=== PATIENT | female | born 1950 | race Caucasian/White ===

== ENCOUNTER 2016-12-18 16:52 | Emergency (ER) | payer MEDICARE, MEDICAID ==
[~2016-12-18] VITALS: Ht 157.5 cm; Wt 63.5 kg
[2016-12-18] MEDS ORDERED: ACETAMINOPHEN &1 TA1 PO (17:02)
--- NOTE | 2016-12-18 17:26 | Emergency Room Report ---
History of Present Illness Time Seen by [id number] Presenting Problem in Triage Pt arrived:Ambulance Stretcher Presenting Problem:PATIENT STATES THAT SHE HAS BEEN HAVING ISSUES WITH HER SON AND HASN'T BEEN TAKING HER SEIZURE MEDICATIONS. BROUGHT BY EMS RELATED TO HAVING MULTIPLE SEIZURES BACK TO BACK Onset of symptoms date/time:/ or onset unknown for:MEDICAL HX UNKNOWN Treatment Prior to Arrival: MONITORING AND IV INSERTION C-COLLAR AND BACKBOARD PUBLIC HEALTH EDUCATOR Provided by:EMT Sepsis Risk Assessment: Temp: B/P: MAP: Pulse: 98 Resp: 20 Recent fever? N Clinical Suspician of Infection? N Mental Status: 1 - Regular (Normal Baseline) Sepsis Risk:Possible Sepsis Risk Have you (or family members/close friends) recently traveled outside the [place]? N If Yes, where/when: Have you had exposure to infectious disease within the past month? N TB? Other? Specify: 66 years old white female from [place] who was diagnosed with epilepsy than 1 year ago after extensive workup. She is supposed to be on Topamax and she stopped it 4 months ago. Today she was visiting her daughter when she suffered for tonic-clonic seizures in the last hour, the ambulance was called and brought to the ED. the family reports that the patient hit her head during the seizure episode. She is alert oriented provided the history above. She admitted having seizure and chronic low back pain. I removed her dentures placed in a cup and gave it to her. Source patient, RN notes reviewed, family ALLERGIES Coded Allergies: Penicillins (12/18/16) codeine (12/18/16) morphine (12/18/16) Home Medications Reported Medications HYDROCODONE/ACETAMINOPHEN (Hydrocodon-Acetaminophn 10-325) 1 TAB PO Q6HP PRN PAIN #120 History Medical History General CAD? No Angina: No ND: No Hypertension? No Hyperlipidemia? No CHF? No DVT? No PE? No COPD? No Asthma? No Anemia? No GERD? No Gastric ulcers? No GI Bleed? No Hernia? No Thyroid Problems? No Hypothyroidism? No CVA? No Seizures? Yes Diabetes? No Renal Insuffiency? No End Stage Renal Disease? No UTI? No Stones? No BPH? No GB Disease: No Nephritic Syndrome? No Asplenia? No Hepatitis? No Sickle Cell Disease? No Arthritis? No Migraines? No Cataracts? No Glaucoma? No MRSA? No HIV? No TB? No Anxiety? Yes Depression? Yes Cancer? No More? 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 Respiratory no symptoms reported Cardiovascular no symptoms reported Gastrointestinal no symptoms reported Genitourinary no symptoms reported. Musculoskeletal no symptoms reported Skin no symptoms reported Psychiatric/Neurological see HPI, seizure Physical Exam Vital Signs Vital Signs Date Time Temp Pulse Resp B/P Pulse O2 O2 Flow FiO2 Ox Delivery Rate 12/18 1919 92 18 131/71 93 12/18 1749 95 20 151/84 96 12/18 1654 98 20 94 - WBC >12,000 or <4,000 or 10% bands? 2 or more SIRS Criteria Met? B/P: MAP: Creatinine >2.0? UA output<0.5ml/kg/hr for 2 hrs? Platelet count >100,000? Lactate >2.0mmol/1? INR >1.2 or PTT > than 60 sec? Evidence of Organ Dysfunction? Provider documented clinical suspician of infection? N Sepsis Criteria Count: 2 Sepsis Risk: Possible Sepsis Risk General Appearance normal appearance, WD/WN Eye Exam - bilateral eye normal exam, bilateral eye PERRL, bilateral eye EOMI Ear, Nose, Throat hearing grossly normal, normal ENT inspection Neck normal inspection, non-tender, supple, full range of motion Respiratory Status Yes: trachea midline, chest symmetrical, non tender chest. No: respiratory distress. Lung Sounds bilateral: normal breath sounds, lungs clear. Cardiovascular normal exam, regular rate/rhythm, no peripheral edema, no gallop, no JVD, no murmur, no rub, normal peripheral pulses Peripheral Pulses Pulses normal Yes Gastrointestinal normal bowel sounds, normal exam, non tender, soft, no organomegaly Back normal inspection, no CVA tenderness, no vertebral tenderness Extremities non-tender, normal range of motion, normal inspection Neurologic alert, cut out press operator II-XII nml as tested, normal exam, oriented x 3 Reflexes Reflexes normal Yes Mental status normal mood/affect Skin intact, normal color, warm/dry Medical Decision Making LABS/Meds/Orders Pt receiving controlled substance in ED? No Results/Orders Laboratory Tests 12/18/16 1706: Sodium 141, Potassium 4.1, Chloride 104, Carbon Dioxide 28, BUN 17, Creatinine 1.1 H, Estimated Creat Clear 50, Estimated GFR (MDRD) 50 L, Glucose 95, Calcium 9.1, Total Bilirubin 0.1 L, AST 22, ALT 18, Alkaline Phosphatase 111, Total Protein 7.2, Albumin 3.2 L, Globulin 4.0 H, Albumin/Globulin Ratio 0.8 L, WBC 10.7, RBC 4.35, Hgb 13.1, Hct 40.1, MCV 92.1, RDW 13.1, Plt Count 317, MPV 8.3, Gran % 63.1, Gran # 6.8, Lymphocytes % 29.4, Monocytes % 3.7, Eosinophils % 2.9, Basophils % 0.8, Lymphocytes # 3.2, Monocytes # 0.4, Eosinophils # 0.3, Basophils # 0.1, PUBS MCHC 32.7, MCH 30.1 Current Medication Orders Sig/Ashley Start time Last Medication Dose Route Stop Time Status Admin Acetaminophen 1,000 MG ONCE ONE 12/18 1914 DC 12/18 PO 12/19 1915 191 Acetaminophen 0 .STK-MED ONE 12/18 1909 DC PO Topiramate 50 MG ONCE ONE 12/18 1800 DC 12/18 PO 12/18 1800 180 Topiramate 0 .STK-MED ONE 12/19 1755 DC PO Sodium Chloride 100 ML .STK-MED ONE 12/18 1730 DC IV Phenytoin Sodium 1,000 MG ONCE ONE 12/18 1729 DC 12/18 Sodium Chloride 100 ML IV 12/18 1752 174 Phenytoin Sodium 0 .STK-MED ONE 12/19 1719 DC IV Orders Procedure Date/time Status DIET-NOTHING BY MOUTH 12/[address] HEAD REQ 12/[address] SCAN REQ 12/18 1728 Complete CHEST-PORTABLE 12/18 1728 Active URINALYSIS/COMPLETE 12/18 1728 Active DRUG ABUSE SCREEN (10) 12/18 1728 Active CBC WITH AUTO DIFF 12/18 1728 Complete CHEM 12 PROFILE 12/18 1728 Complete XRAY/CT/US XRAY/CT/US XRAY chest XR interpretation by reviewed by me Xray Results normal/NAD, no fracture seen, no infiltrates Departure Departure Time of Disposition 1924 Disposition DC Home or Self Care(routine) Clinical Impression Primary Impression: Seizure disorder Secondary Impressions: Chronic back pain, DJD (degenerative joint disease) of cervical spine, Head contusion, Non compliance w medication regimen Condition STABLE Additional Instructions The patient had UNEVENTHFUL ED STAY WITH NO MORE SEIZURES. SHE REMAINED AXOX3. AT [place] SHE COMPLAINED OF HEDACHE AND WAS GIVEN TYLENOL WITH RELIEF. The patient could not tolerate IV Dilantin. I gave her Topamax 50 mg 1 time dose in the ED and another to GO HOME. She does have Topamax 100 mg at HOME. She understands that she is not to quit taking her medicine. The patient and her verbalize understanding of the LEFT plan. The has seizures when he sees the same neurologist. Questions were answered and they were discharged in stable condition. DR. SPICER Discharge Counseling Counseled pt/family regarding diagnosis, test results, medications/RX, home care, follow up needs Prescriptions Current Visit Scripts Topiramate (Topamax) 50 MG PO Q12 #14 TAB ED Critical Care Critical Care No If Critical Care minutes are documented, the time involved in the performance of seperately reportable procedures was not counted toward critical care time documented. I directly delivered medical care to this critically ill and/or injured patient. Timely evaluation and treatment was necessary to address the significant organ system(s) dysfunction present in this patient. at 1931
[2016-12-18 18:28] LABS: HEMOGLOBIN 13.1 g/dL (12.2-16.2); LYMPH # 3.2 K/mm3 (0.7-4.5); LYMPH % 29.4 % (10-50.0)
--- OUTSIDE RECORDS SUMMARY | 2016-12-18 18:37 | External Medical Summary Rpt ---
Author Author [facility] Organization [facility] Address Unknown Phone Unavailable Care Team Providers Care Tractor Sweeper Operator Name Role Phone JAYLEEN, (REF) PCP [phone] Encounter [facility] Date(s): 12/04/15 - 12/04/15 [facility] [address] [place] [id number]- Discharge Disposition: OP Self Care or Home Attending Physician: BEENA TAMAYO DO-CAR Admitting Physician: BEENA TAMAYO DO-CAR Referring Physician: BEENA TAMAYO DO-CAR Reason for Visit CHEST PAIN, UNSPECIFIED Vital Signs Most recent 1 2 3 to oldest [Reference Range]: Temperature Temporal artery Source scanning (12/04/15 8:15 AM) Temperature Fahrenheit Mode (12/04/15 8:15 AM) Temperature, 97.8 Deg F Fahrenheit (12/04/15 8:15 AM) [96.8-99.7 Deg F] Clinical 36.6 Deg C Temperature, (12/04/15 8:15 AM) C Peripheral 70 bpm Pulse Rate (12/04/15 8:15 AM) [60-100 bpm] Heart Rate 74 bpm 70 bpm 76 bpm Monitored (12/04/15 1:30 PM) (12/04/15 1:15 PM) (12/04/15 1:00 PM) [60-100 bpm] Respiratory 34 Breaths/Min 16 Breaths/Min 34 Breaths/Min Rate [14-20 *HI* (12/04/15 1:15 PM) *HI* Breaths/Min] (12/04/15 1:30 PM) (12/04/15 1:00 PM) Blood 116/64 mmHg 108/63 mmHg 113/56 mmHg Pressure (12/04/15 1:30 PM) (12/04/15 1:15 PM) (12/04/15 1:00 PM) [90-140/60-9 0 mmHg] Mean 83 82 77 Arterial (12/04/15 1:30 PM) (12/04/15 1:15 PM) (12/04/15 1:00 PM) Pressure (MAP)-BMDI Oxygen 98 % 95 % 92 % Saturation (12/04/15 1:30 PM) (12/04/15 1:15 PM) *LOW* [94-100 %] (12/04/15 1:00 PM) Problem List Condition Effective Status Health Informant Dates Status Angina(Confi Active patient rmed) Arthritis(Co Active patient nfirmed) Back Active patient pain(Confirm ed) Cataract(Con Active patient firmed) COPD Active patient (chronic obstructive pulmonary disease)(Con firmed) H/O: Active patient TIA(Confirme d) Hiatal Active patient hernia(Confi rmed) Pneumonia(Co Active patient nfirmed) Seizure(Conf Active patient irmed) Skin Active patient cancer(Confi rmed) Syncope(Conf Active patient irmed) Allergies, Adverse Reactions, Alerts Substance Reaction Severity Status codeine n/v Active morphine n/v cramping Active penicillin n/v Active Zanaflex n/v, cramping Active Medications acetaminophen-HYDROcodone (Lortab 10/325)1 Tab, Oral, Every 4 Hours, As Needed, as needed for pain, Refills: 0 albuterol (albuterol 0.63 mg/3 mL (0.021%) inhalation solution)3 mL, Nebulized Inhalation , Three Times A Day, Refills: 0 ALPRAZolam (Xanax) 1 mg, Oral, Three Times A Day, Refills: 0 diclofenac 75 mg, Oral, Two Times A Day, Refills: 0 gabapentin 400 mg, Oral, Four Times A Day, Refills: 0 topiramate (Topamax) 50 mg, Oral, Two Times A Day, Refills: 0 Results No data available for this section Immunizations No data available for this section Procedures Procedure Date Related Body Site Diagnosis appy bone marrow bx cataract sx choley laser eye ex skin cancer removal from lip tubal Social History Social History Response Type Smoking Status Current every day smoker; Smoking Frequency Within Last 30 Days Five or more cigarettes per day; Tobacco Use Within Last Twelve Months Cigarettes; Years of Tobacco Use 35; Packs/Tins Daily 1 Assessment and Plan No data available for this section Hospital Discharge Instructions Patient EducationAngiogram, Care After Conscious Sedation, Adult, Care After Groin Site Care (Custom) (CUSTOM)
--- OUTSIDE RECORDS SUMMARY | 2016-12-18 18:37 | External Medical Summary Rpt ---
Author Author [facility] Organization [facility] Address Unknown Phone Unavailable Care Team Providers Care Capacitor Inspector Name Role Phone PHY, UNKNOWN PCP Unavailable Encounter [facility] [id number] Date(s): 12/07/15 - 12/08/15 [facility] [address] [place] [address]- [phone] Discharge Disposition: OP Self Care or Home Attending Physician: MICKEY HUSSEIN II, MD-ANS Admitting Physician: MICKEY HUSSEIN II, MD-ANS Referring Physician: MICKEY HUSSEIN II, MD-ANS Reason for Visit PM Vital Signs No data available for this section Problem List Condition Effective Status Health Informant [...] n/v Active Zanaflex n/v, cramping Active Medications No data available for this section Results No data available for this section Immunizations No data available for this section Procedures No data available for this section Social History Social History Response Type Smoking Status Current every day smoker; Smoking Frequency Within Last 30 Days Five or more cigarettes per day; Tobacco Use Within Last Twelve Months Cigarettes; Years of Tobacco Use 35; Packs/Tins Daily 1 Assessment and Plan No data available for this section Hospital Discharge Instructions No data available for this section
--- OUTSIDE RECORDS SUMMARY | 2016-12-18 18:37 | External Medical Summary Rpt ---
Author Author [facility] Organization [facility] Address Unknown Phone Unavailable Care Team Providers Care Spring Winder Name Role Phone JAYLEEN, (REF) PCP [phone] Encounter [facility] Date(s): 12/04/15 - 12/04/15 [facility] [address] [place] [address]- Discharge Disposition: OP Self Care or Home [...]
--- OUTSIDE RECORDS SUMMARY | 2016-12-18 18:37 | External Medical Summary Rpt ---
Author Author [facility] Organization [facility] Address Unknown Phone Unavailable Care Team Providers Care Import Export Clerk Name Role Phone PHY, UNKNOWN PCP Unavailable Encounter [facility] [id number] Date(s): 12/07/15 - 12/08/15 [facility] [address] [place] [address]- [phone] Discharge Disposition: OP Self Care or Home [...]
--- OUTSIDE RECORDS SUMMARY | 2016-12-18 18:42 | External Medical Summary Rpt | CCD ---
Author Author , ROSA Organization ROSA Address Unknown Phone [email or web address] Care Team Providers Care [employer] Consultant Name Role Phone JORGE, JORGE Unavailable Unavailable JORGE WHI, OJRGE Unavailable Unavailable WHI MICHAEL ZEKE, MICHAEL Unavailable Unavailable ZEKE [employer] Unavailable Unavailable CORPORATION, [employer] Unavailable Unavailable CORPORATION, [employer] BULMARO JR MAR, Unavailable Unavailable BULMARO JR MAR ARNOLD OMAR, ARNOLD Unavailable Unavailable OMAR ARNOLD OMAR, ARNOLD Unavailable Unavailable OMAR ARNOLD, BEENA W, Unavailable Unavailable ARNOLD, BEENA W [facility] Unavailable Unavailable SERVICES, [facility] Unavailable Unavailable SERVICES, [facility] BEATRIZ FRA, BEATRIZ Unavailable Unavailable FRA [facility] Unavailable Unavailable ASSOCIAT, [facility] ANASTACIA JASKARAN, ANASTACIA Unavailable Unavailable JASKARAN ANASTACIA JACKIE, ANASTACIA Unavailable Unavailable JACKIE BROWN MAR, BROWN MAR Unavailable Unavailable HEATH JAM, HEATH JAM Unavailable Unavailable BUTROS RAE, BUTROS Unavailable Unavailable RAE [facility] Un[facility] Unavailable [facility] M, [facility] CHIPPS NOAH & Unavailable Unavailable DUBILIER, [facility]IP[facility] NOAH & DUBILIER [facility] Unavailable Unavailable HOSPITAL, [facility] Unavailable Unavailable PRACTI, [facility] Unavailable Unavailable MEDICAL CENT, [facility] MEDICAL [facility] Unavailable Unavailable PHYSICIAN PRA, [facility] PHYSICIAN PRA [facility], Unavailable Unavailable [facility] THEODORE PATRICIA, THEODORE PATRICIA Unavailable Unavailable [facility] Unavailable Unavailable [facility]IA [facility], [facility] Unavailable Unavailable AND REHA, [facility] Unavailable Unavailable EQUIPMENT, [facility] GRIS JR CHAS, GRIS Unavailable Unavailable JR CHAS BRET REGINA, BRET REGINA Unavailable Unavailable DOWNS PAT, DOWNS PAT Unavailable Unavailable [employer], [employer] Unavailable Unavailable DIAZ, DIAZ Unavailable Unavailable ESCOTT EDW, ESCOTT Unavailable Unavailable EDW KANCHAN RAZA, KANCHAN RAZA Unavailable Unavailable KANCHAN RAZA, KANCHAN RAZA Unavailable Unavailable FERDA, FERDA Unavailable [facility]available [facility] Unavailable Unavailable GROUP P, [facility] GEILE CROWELL, GEILE CROWELL Unavailable Unavailable RACHELLE GRE, RACHELLE GRE Unavailable Unavailable GREGONIS MACK, Unavailable Unavailable GREGONIS MACK PULIDO CRISTIAN, PULIDO Unavailable Unavailable CRISTIAN DORON SCO, Unavailable Unavailable DORON SCO SYED TWA, SYED Unavailable Unavailable TWA GREG ZECHARIAH, GREG ZECHARIAH Unavailable Unavailable TERRY DICK, TERRY Unavailable Unavailable DICK HULZEBOS RYA, Unavailable Unavailable HULZEBOS RYA KEENAN II JOSHUA, KEENAN Unavailable Unavailable II JOSHUA CLEMENS NINOSKA, CLEMENS NINOSKA Unavailable Unavailable EFFIE III SOCRATES, Unavailable Unavailable EFFIE III SOCRATES [facility] Unavailable Unavailable ASSOCIAT, [facility] KOUNS AGUSTÍN, KOUNS AGUSTÍN Unavailable Unavailable KOUNS AGUSTÍN, KOUNS AGUSTÍN Unavailable Unavailable KUVLIEV YURY, KUVLIEV Unavailable Unavailable [facility] Unavailable Unavailable [facility], [facility] Unavailable Unavailable [facility], [facility], LINCARE Unavailable Unavailable INC [facility], [facility] Unavailable Unavailable INC [facility] MAZLOOMD, Unavailable Unavailable [facility] MAZLOOMD [facility] Unavailable Unavailable SERVICES, [facility] MAZLOOMDOOST RAZA, Unavailable Unavailable MAZLOOMDOOST RAZA MAZLOOMDOOST MAN, Unavailable Unavailable MAZLOOMDOOST MAN MCMENAMIN IVAN, Unavailable Unavailable MCMENAMIN IVAN MCMENAMIN IVAN, Unavailable Unavailable MCMENAMIN IVAN MCQUAIDE, MCQUAIDE Unavailable Unavailable MCQUAIDE CLARA, Unavailable Unavailable [facility] Un[facility]available [facility] Unavailable [facility], [facility] MARIE RYBrooke, MARIE Unavailable Unavailable RYA MOGILEVSKI, Unavailable Unavailable MOGILEVSKI MOGILEVSKI, Unavailable Unavailable MOGILEVSKI MOGILEVSKI JUSTIN, Unavailable Unavailable MOGMERI JUSTIN EMETERIO JUSTIN, Unavailable Unavailable EMETERIO THEODORE MD Unavailable Unavailable CONSULTING SRV, PATRICIA THEODORE MD CONSULTING SRV [facility] Unavailable Unavailable LAB, [facility] Unavailable Unavailable LAB, [facility] LAB PICA DAVE, PICA DAVE Unavailable Unavailable [facility]available Unavailable SERVICE, [facility] Unavailable Unavailable SERVICE, [facility] Unavailable Unavailable PLL[facility], [facility] KAYLEN CADENCE, Unavailable Unavailable KAYLEN CADENCE RASLAU FLA, RASLAU Unavailable Unavailable FLA [facility] Unavailable Unavailable SERVICES, [facility] RICE, RICE Unavailable Unavailable RICE, RICE Unavailable Unavailable RICE JAM, RICE JAM Unavailable Unavailable RICE SHA, RICE SHA Unavailable Unavailable RISHMAWI HAZ, Unavailable Unavailable RISHMAWI HAZ RADHA MAR, RADHA MAR Unavailable Unavailable [facility] Unavailable Unavailable EQUIPME, [facility] Unavailable Unavailable EMERGENCY PHYS, [facility] Unavailable Unavailable EMERGENCY SERVI, [facility] JR JUAN EDW, Unavailable Unavailable JR JUAN EDW [facility] Unavailable Unavailable [facility], Unavailable Unavailable [facility] WAESPE, WAESPE Unavailable Unavailable [facility] Unavailable Unavailable #702, [facility] Unavailable Unavailable #702, [facility] IV ALL, Unavailable Unavailable JERRY IV ALL [facility], Unavailable Unavailable [facility], Unavailable Unavailable [facility] MUNSON KIN, MUNSON KIN Unavailable Unavailable [facility] Un[facility] Unavailable [place] [place] LemonISE Unavailable Unavailable SYSTEMS IN, [facility] MARIO MAT, MARIO MAT Unavailable Unavailable Purpose Continuity of Care Document - 08-13-2009 through 2016 Problems Code Diagnosis DOS Provider Status M5136 [facility] 07-08-2016 [facility] 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 M545 LOW BACK 07-08-2016 [facility] PAIN ORTHOPEDIC ASSOCIAT M4806 SPINAL 06-07-2016 [facility] STENOSIS ORTHOPEDIC LUMBAR ASSOCIAT REGION M5126 OT 06-07-2016 [facility] INTERVERTEB ORTHOPEDIC RAL DISC ASSOCIAT DISPLACEMEN T LUMBAR RGN 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 SCIENCES OF Enumeral Biomedical ANALGESIC G894 CHRONIC 05-14-2016 [facility] PAIN REGIONAL SYNDROME PHYSICIAN PRA J111 FLU D/T 05-14-2016 [facility] UNIDENTIFIE N [facility]ERGENCY D FLU VIRUS SERVI W/OTH RESP MANIF J209 ACUTE 05-14-2016 [facility] BRONCHITIS N EMERGENCY UNSPECIFIED SERVI J440 COPD WITH 05-14-2016 [facility] ACUTE LOWER N EMERGENCY SERVI RESPIRATORY INFECTION J441 CHRONIC 05-14-2016 [facility] OBSTRUCTIVE REGIONAL PULMONARY PHYSICIAN DZ PRA W/EXACERBAT ION J9691 RESPIRATORY 05-14-2016 [facility] FAILURE REGIONAL UNSPECIFIED PHYSICIAN WITH PRA HYPOXIA E781 PURE 04-27-2016 [facility] HYPERGLYCER REGIONAL [facility] J438 OTHER 04-14-2016 [facility] N6001 SOLITARY 04-14-2016 [facility] CYST OF RADIOLOGY RIGHT GROUP P BREAST N6489 OTHER 04-14-2016 [facility] SPECIFIED RADIOLOGY DISORDERS GROUP P OF BREAST R921 MAMMO 04-14-2016 [facility] CALCIFICATI RADIOLOGY ON FOUND ON GROUP P DX IMAGING BREAST R928 OTH ABNORM 04-14-2016 [facility] & RADIOLOGY INCONCLUSIV GROUP P E FIND ON DX IMAG BREAST [id number] ADVERS EFF 04-04-2016 PATRICIA THEODORE UNS RX MEDS BIO CONSULTING SUBSTANCES SRV INIT ENC R079 CHEST PAIN 04-01-2016 [place] UNSPECIFIED FIRE EMS N858 OTHER 03-25-2016 [facility] SPECIFIED NOAH & NONINFLAMMA DUBILIER TORY DISORDERS UTERUS R938 ABNORMAL 03-25-2016 [facility] FIND ON DX REGIONAL IMAGING OT MEDICAL SPEC BODY CENTE STRCT A5900 UROGENITAL 03-24-2016 [facility] TRICHOMONIA HEALTH OF SIS [place] UNSPECIFIED R102 PELVIC AND 03-24-2016 [facility] PERINEAL HEALTH OF PAIN [place] Z1231 ENCOUNTER 03-24-2016 [facility] SCREENING RADIOLOGY MAMMO MALIG GROUP P NEOPLASM BREAST Z139 ENCOUNTER 03-24-2016 LABORATORY FOR KARTHIK OF SCREENING RM H UNSPECIFIED Z7252 HIGH RISK 03-24-2016 LABORATORY HOMOSEXUAL KARTHIK OF BEHAVIOR RM H Z780 ASYMPTOMATI 03-24-2016 [facility] C RADIOLOGY MENOPAUSAL GROUP P STATE 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 R569 UNSPECIFIED 03-14-2016 MOGILEVSKI CONVULSIONS R76570 ENCOUNTER 02-25-2016 [facility] SUBWAY TRAIN OPERATOR EXAM HEALTH OF GENERAL RTN [place] W/O ABNORMAL FIND Z124 ENCOUNTER 02-25-2016 LABORATORY OTHER KARTHIK OF SCREENING RM H MALIG NEOPLASM CERVIX A599 TRICHOMONIA 02-09-2016 [facility] SIS N EMERGENCY UNSPECIFIED PHYS G8929 OTHER 02-09-2016 [facility] CHRONIC REGIONAL PAIN MEDICAL CENTE J449 CHRONIC 02-09-2016 [facility] OBSTRUCTIVE REGIONAL PULMONARY MEDICAL DISEASE UNS CENTE M1990 UNSPECIFIED 02-09-2016 [facility] OSTEOARTHRI MEDICAL TIS CENTE UNSPECIFIED SITE A5901 TRICHOMONAL 02-04-2016 [facility] T[facility] J52501 OTH GEN 02-04-2016 [place] EPILEPSY [facility] NOT HOSPITAL INTRACTABLE W/O STATUS EPI N3001 ACUTE 02-04-2016 [place] CYSTITIS [facility] WITH HOSPITAL HEMATURIA Z720 TOBACCO USE 02-04-2016 [facility] G5732 LESION 01-25-2016 [place] [facility]AL [facility] POPLITEAL ASSOCIAT NERVE LEFT LOWER LIMB Y76187 PAIN IN 01-25-2016 [place] LEFT LEG ORTHOPEDIC ASSOCIAT R202 PARESTHESIA 01-25-2016 [facility] SKIN ORTHOP[facility]IC ASSOCIAT R55 SYNCOPE AND 12-28-2015 [facility] COLLAPSE JUSTIN M5386 OTHER 12-08-2015 [facility] SPECIFIED H SLEEP AND DORSOPATHIE REHA S LUMBAR REGION Z06903 LOC-REL SX 12-04-2015 [facility]PILEPSY [facility] W/CPS NOT PHYSICIAN INTRACT W/O PRA SE I200 UNSTABLE 12-04-2015 [facility] ANGINA REGIONAL PHYSICIAN PRA I498 OTHER 12-04-2015 [place] SPECIFIED [facility]ANCE CARDIAC SERVICE ARRHYTHMIAS R51 HEADACHE 12-04-2015 [facility] PHYSICIAN PRA R531 WEAKNESS 12-04-2015 [place] [facility] I6523 OCCLUSION & 12-02-2015 [facility] RADI[facility]Y BILATERAL GROUP P CAROTID ARTERIES K219 GASTRO-ESOP 12-01-2015 [facility] REFLUX REGIONAL DISEASE MEDICAL WITHOUT CENTE ESOPHAGITIS R05 COUGH 12-01-2015 [facility] R062 WHEEZING 12-01-2015 [facility] R071 CHEST PAIN 12-01-2015 [place] [facility] EMS BREATHING R42 DIZZINESS 12-01-2015 [facility] GIDDINESS MEDICAL CENTE R61 GENERALIZED 12-01-2015 [facility] HYPERHIDROS MEDICAL IS CENTE R79564 OTHER 10-15-2015 KANCHAN PERSON SECONDARY CATARACT LEFT EYE H0231 BLEPHAROCHA 10-12-2015 KANCHANVIRAJ PERSON LASIS RIGHT UPPER EYELID H0234 BLEPHAROCHA 10-12-2015 KANCHANVRIAJ PERSON LASIS LEFT UPPER EYELID 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 T54962 OTHER 10-12-2015 KANCHAN PERSON VITREOUS OPACITIES RIGHT EYE H527 UNSPECIFIED 10-12-2015 KANCHAN PERSON DISORDER OF REFRACTION Z961 PRESENCE OF 10-12-2015 KANCHANVIRAJ PERSON INTRAOCULAR LENS X92590 PAIN IN 09-22-2015 [facility] LEFT HIP ORTHOPEDIC ASSOCIAT M5417 RADICULOPAT 09-22-2015 [facility] HY ORTHOPEDIC LUMBOSACRAL ASSOCIAT REGION M5416 RADICULOPAT 06-22-2015 [facility] HY LUMBAR REGIONAL REGION MEDICAL CENTE G153UTE CONTUSION 05-25-2015 [facility] LOWER BACK REGIONAL & PELVIS MEDICAL INITIAL CENTE ENCOUNTER E785 HYPERLIPIDE 03-06-2015 [facility] MJ REGIONAL UNSPECIFIED PHYSICIAN PRA I10 ESSENTIAL 03-06-2015 [facility] PRIMARY REGIONAL HYPERTENSIO PHYSICIAN N PRA J22 UNSPECIFIED 03-06-2015 [facility] ACUTE REGIONAL LOWER PHYSICIAN RESPIRATORY PRA INFECTION 79384 DIARRHEA 08-25-2014 [facility] MEDICAL CENTE 98002 ESOPHAGEAL 08-20-2014 [facility] 5533 DIAPHRAGMAT 08-20-2014 THE [facility] YASIR W/O CLINIC MENTION OBSTRUCTION /GANGREN 7871 HEARTBURN 08-14-2014 [facility] 84928 FULL 07-17-2014 [facility] INCONTINENC REGIONAL E OF FECES MEDICAL CENTE 7932 NONSPC ABN 07-17-2014 [facility] FINDNG REGIONAL RAD&OTH MEDICAL EXAM OTH CENTE INTRTHOR ORGN 03656 TOTAL OR 07-03-2014 [facility] MATURE H SENILE ANESTHESIA CATARACT PSC 27096 OTHER AND 07-03-2014 KANCHAN RAZA COMBINED FORMS OF SENILE CATARACT V7284 UNSPECIFIED 06-25-2014 [facility] PRE-OPERATI MEDICAL VE CENTE EXAMINATION 73042 AFTER-CATAR 06-23-2014 KANCHANVIRAJ PERSON ACT, OBSCURING VISION 72788 BLEPHAROCHA 06-23-2014 KANCHANVIRAJ PERSON LASIS V431 LENS 06-23-2014 KANCHAN RAZA REPLACED BY OTHER MEANS 496 CHRONIC 05-08-2014 [facility] AIRWAY OBSTRUCTION NEC 61716 OBSTRUCTIVE 03-17-2014 [facility] CHRONIC N EMERGENCY BRONCHITIS PHYS WITH EXACERBATIO N 2410 NONTOXIC 02-25-2014 [facility] UNINODULAR REGIONAL GOITER MEDICAL CENTE 99371 OCCLUSION&S 12-31-2013 [facility] TENOS REGIONAL CAROTID ART MEDICAL W/O CENTE MENTION INFARCT 57196 DYSPHAGIA 12-31-2013 [facility] UNSPECIFIED REGIONAL MEDICAL CENTE 7231 CERVICALGIA 12-30-2013 [facility] REG[facility]AL PHYSICIAN PRA 7245 UNSPECIFIED 12-30-2013 [facility] BACKACHE REGIONAL PHYSICIAN PRA 7820 DISTURBANCE 12-30-2013 [facility] OF SKIN REGIONAL SENSATION PHYSICIAN PRA 85297 PAIN IN 12-27-2013 [facility] [place] [facility] PELVIC REGION AND THIGH 7242 LUMBAGO 12-27-2013 [facility] [place] [facility] 2724 OTHER AND 12-13-2013 [facility] UNSPECIFIED REGIONAL PHYSICIAN HYPERLIPIDE PRA MJ 03979 OTHER 12-13-2013 [facility] CHRONIC REGIONAL PAIN PHYSICIAN PRA V163 FAMILY 12-13-2013 [facility] HISTORY OF REGIONAL MALIGNANT PHYSICIAN NEOPLASM OF PRA BREAST 486 PNEUMONIA, 12-06-2013 [facility] ORGANISM N EMERGENCY UNSPECIFIED SERVI 5119 UNSPECIFIED 12-06-2013 [facility] PLEURAL N EMERGENCY EFFUSION SERVI 78296 ACUTE 12-06-2013 [facility] EMERGENCY FAILURE SERVI 14486 SHORTNESS 12-06-2013 [place] [facility] FIRE EMS 78245 CHEST PAIN 12-06-2013 [place] UNSPECIFIED FIRE EMS 85738 HYPOXEMIA 12-06-2013 [facility] N EMERGENCY SERVI 18383 LEUKOCYTOSI 12-04-2013 KOUNS AGUSTÍN S UNSPECIFIED 5180 PULMONARY 12-03-2013 [facility] RADIOLOGY GROUP P 18478 WHEEZING 12-03-2013 [facility] N EMERGENCY SERVI 4660 ACUTE 11-26-2013 [facility] BRONCHITIS N EMERGENCY SERVI 13159 OTHER 08-21-2013 [facility] SPECIFIED REGIONAL CIRCULATORY MEDICAL SYSTEM CENTE DISORDERS 78261 OTHER 08-21-2013 [facility] MALAISE AND REGIONAL FATIGUE MEDICAL CENTE V5869 LONG-TERM 08-21-2013 [facility] (CURRENT) REGIONAL USE OF MEDICAL OTHER CENTE MEDICATIONS 7243 SCIATICA 07-04-2013 [facility] N EMERGENCY PHYS 41261 OBESITY, 03-30-2013 ALIX OMAR UNSPECIFIED 90577 INSOMNIA 03-30-2013 [facility] OMAR UNSPECIFIED 3669 UNSPECIFIED 03-14-2013 [facility] CATARACT H ANESTHESIA [facility] V7281 PRE-OPERATI 03-14-2013 [facility] MAY REGIONAL CARDIOVASCU MEDICAL LAR CENTE EXAMINATION 3679 UNSPECIFIED 02-13-2013 KANCHAN PERSON DISORDER OF REFRACTION& [place] [address] UNSPECIFIED 02-05-2013 [facility] [place] RADI[facility] CONSTIPATIO N 7213 LUMBOSACRAL 01-11-2013 [facility] SPONDYLOSIS ASSOCIAT WITHOUT MYELOPATHY 69493 ASTHMA 12-27-2012 DOTTIEMONICA OMAR UNSPECIFIED WITH STATUS ASTHMATICUS 7823 EDEMA 12-27-2012 DOTTIEMONICA OMAR 32386 DEGEN 12-06-2012 [facility] OSACRAL INTERVERTEB RAL DISC 7384 ACQUIRED 12-06-2012 [place] [facility] SPONDYLOLIS SERV THESIS FOUNDATIO 7210 CERVICAL 12-03-2012 [facility] [place] SPONDYLOSIS RADIOLOGY WITHOUT MYELOPATHY 7224 DEGENERATIO 12-03-2012 [facility] [place] N OF RADIOLOGY CERVICAL INTERVERTEB RAL DISC 7230 SPINAL 12-03-2012 [facility] STENOSIS IN REGIONAL CERVICAL MEDICAL REGION CENTE 17438 OSTEOARTHRO 11-23-2012 ALIX OMAR S INVLV MX SITES BUT [place] SPEC GEN 30894 OBSTRUCTIVE 10-30-2012 [facility] [place] APNEA PULMONARY M 60976 ACUTE AND 10-26-2012 [facility] CHRONIC REGIONAL RESPIRATORY MEDICAL FAILURE CENTE 7862 COUGH 10-25-2012 [facility] 13215 OTHER 10-25-2012 [facility] [place] NONSPECIFIC RADIOLOGY ABNORMAL FINDING OF LUNG FIELD 12106 SPONDYLOSIS 09-28-2012 [place] [facility] WITH SERV MYELOPATHY [facility] THORACIC REGION 55764 INTERVERT 09-28-2012 [place] [facility] LUMB DISC SERV D/O FOUNDAT[facility] W/MYELOPATH Y LUMB REGION 7244 THORACIC/PROSPER 09-28-2012 [facility] NEURITIS/RA DICULITIS UNSPEC 51735 CLOSED 09-28-2012 [facility] , LUMBAR VERTEBRA 3384 CHRONIC 09-25-2012 [facility] SYNDROME 49608 PAIN IN 09-25-2012 [facility] UNSPECIFIED 7291 UNSPECIFIED 09-25-2012 [facility] 56376 OTHER 08-07-2012 [facility] [place] [address] ALTERED 08-07-2012 [place] [facility] M[facility] STATUS FOUNDAT[facility] 7202 SACROILIITI 05-01-2012 MANO[facility]HE[facility] S NOT MAZLOOMD ELSEWHERE CLASSIFIED 84371 SPASM OF 05-01-2012 [facility] MUSCLE MAZLOOMD 1101 DERMATOPHYT 04-19-2012 DO [facility] OF PATHOLOGY NAIL SERVICES 7295 PAIN IN 03-08-2012 [place] SOFT FIRE EMS TISSUES OF LIMB 14133 CONJUNCTIVA 03-02-2012 [facility] 32836 ACUTE 02-25-2012 RY[facility] LARYNGITIS, EMERGENCY WITHOUT SERVICES MENTION OF OBSTRUCTIO 22580 NUCLEAR 02-07-2012 [facility] 14726 OTHER 02-07-2012 [facility] ALLERGIC CONJUNCTIVI TIS 94945 UNSPECIFIED 11-01-2011 [facility] NELSON SLEEP APNEA 3278 OTHER 08-20-2011 [facility] ORGANIC REGIONAL SLEEP MEDICAL DISORDERS CENTE 53245 TRANSIENT 08-20-2011 [facility] ALTERATION REGIONAL OF MEDICAL AWARENESS CENTE 17850 METABOLIC 07-12-2011 [facility] ENCEPHALOPA REGIONAL THY FAMILY PRACTI 19215 OTHER CHEST 07-12-2011 [facility] 77606 NAUSEA WITH 07-12-2011 [facility] VOMITING [facility] V5882 ENCOUNTER 06-22-2011 [facility] [place] FITTING&ADJ RADIOLOGY NON-VASCULA R CATHETER NEC 71241 ACUTE 06-20-2011 [facility] RESPIRATORY REGIONAL FAILURE MEDICAL FLW TRAUMA CENTE & SURGERY V7651 SPECIAL 06-20-2011 MCMENAMIN SCREENING IVAN FOR MALIGNANT NEOPLASMS COLON 6218 OTHER 06-16-2011 [facility] SPECIFIED PATHOLOGY DISORDERS ASSOCIAT OF UTERUS NEC 6271 POSTMENOPAU 06-16-2011 [facility] STEPHEN REGIONAL BLEEDING MEDICAL CENTE V016 CONTACT 06-13-2011 [facility] WITH OR REGIONAL EXPOSURE TO MEDICAL VENEREAL CENTE DISEASES V7389 SPECIAL 06-13-2011 [facility] SCREENING REGIONAL EXAMIN[place] [address] UNSPECIFIED 06-09-2011 [facility] VULVOVAGINI TIS 6259 UNSPEC 06-09-2011 [facility] W/FEMALE GENITAL ORGANS V762 SCREENING 06-09-2011 PATHOLOGY & FOR CYTOLOGY MALIGNANT LAB NEOPLASM OF THE CERVIX 4619 ACUTE 01-31-2011 ARNOLD OMAR SINUSITIS, UNSPECIFIED 5939 UNSPECIFIED 07-09-2010 ALIX OMAR DISORDER OF KIDNEY AND URETER 5990 URINARY 07-04-2010 [facility] TRACT [facility] INFECTION SERVICES SITE NOT SPECIFIED 8460 SPRAIN AND 07-04-2010 [facility] STRAIN OF EMERGENCY LUMBOSACRAL SERVICES E9289 UNSPECIFIED 07-04-2010 [facility] ACCIDENT [facility] 66316 ABDOMINAL 08-13-2009 [facility] PAIN, REGIONAL EPIGASTRIC MEDICAL CENTE Procedures Procedure DOS Code Location Performer Comment RADEX 56557 [facility] SPINE 7 ORTHOPEDI LUMBOSACR C AL ASSOCIAT MINIMUM 4 VIEWS INJECTION 15665 [facility] 7 ORTHOPEDI SINGLE/ML C T TRIGGER ASSOCIAT POINT 1/2 MUSCLES MRI 20158 [facility] SPINAL 7 ORTHOPEDI CANAL C LUMBAR ASSOCIAT W/O CONTRAST MATERIAL RADEX 94501 [facility] DIAZ SPINE 7 ORTHOPEDI LUMBOSACR C AL 2/3 ASSOCIAT VIEWS DRUG TEST 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 [address] ID CORPORATI CORPORATI METH P ON ON DAY 15- DR HERNÁNDEZ OBSERVATI 55670 [facility] [place] ON CARE 7 REGIONAL DISCHARGE PHYSICIAN PRA MANAGEMEN T INITIAL 22685 [facility] [place] OBSERVATI 7 REGIONAL ON PHYSICIAN CARE/DAY PRA 50 MINUTES CHLORAMPH 98782 [facility] AEGIS ENICOL 7 SCIENCES SCIENCES CORPORATI CORPORATI ON ON COL-CHR/M 66187 AEGIS AEGIS S NONDRUG 7 SCIENCES SCIENCES ANALYTE CORPORATI CORPORATI KRISTI ON ON QUAL/[place] [address] AEGIS AEGIS QUININE 7 SCIENCES SCIENCES CORPORATI CORPORATI ON ON DRUG TST G0483 [facility] AEGIS DEFINITV [address] ID CORPORATI CORPORATI METH P ON ON DAY 22/MORE DR HERNÁNDEZ RADIOLOGI 62777 [facility] EXAM 7 REGIONAL REGIONAL CHEST 2 MEDICAL MEDICAL VIEWS CENTE CENTE FRONTAL&L ATERAL COMPREHEN 23962 [facility] SOLANO SIVE 7 REGIONAL REGIONAL METABOLIC MEDICAL MEDICAL PANEL CENTE CENTE LIPID 17367 [facility] SOL[facility] PANEL 7 REGIONAL REGIONAL MEDICAL MEDICAL CENTE CENTE DIAGNOSTI G0204 F[facility]ATIO MCQUAIDE C 7 N MAMMOGRAP RADIOLOGY HY INCL GROUP P CAD WHEN PERF; BILAT PHRM Q0514 [facility] DISPENSIN 7 PHARMACY PHARMACY G FEE #702 #702 INHALATIO N RX; PER 90 DAYS US BREAST 39842 FOUNDATIO MCQUAIDE UNI REAL 7 N TIME RADIOLOGY WITH GROUP P IMAGE COMPLETE ALBUTEROL J7613 [facility] INHAL 7 PHARMACY PHARMACY NON-CP #702 #702 PROD THRU DME U DOSE 1 MG ECG 84212 PATRICIA THEODORE WAESPE ROUTINE 7 ECG CONSULTIN W/LEAST G SRV 12 LDS I&R ONLY AMB A0427 [facility] SERVICE 7 R FIRE R FIRE ALS EMS EMS EMERGENCY TRANSPORT LEVEL 1 GROUND A0425 [facility] MILEAGE 7 R FIRE R FIRE [place] [address] [facility] [facility] SURG 7 [facility] PATHOLOG[facility] MEDICAL MEDICAL JINNY STEARNS GROSS&JASKARAN ROSCOPIC EXAM DXA BONE 71012 [facility] DENSITY 7 REGIONAL REGIONAL STUDY 1/> MEDICAL MEDICAL SITES JINNY STEARNS AXIAL SKEL IADNA 64105 LABORATOR LABORATOR NEISSERIA 7 Y [place] OF Y [place] OF RM RM GONORRHOE [place] AM[place] [address] [facility] TRANSVAGI 7 HEALTH OF NAL [place] R IADNA 41368 LABORATOR LABORATOR TRICHOMON 7 Y [place] OF Y KARTH[place] OF RM RM VAGINALIS H H AMPLIFIED PROBE TECH ENDOMETRI 32259 [facility] AL BX 7 HEALTH OF W/WO ENDOCERVI [place] X BX W/O R DILAT SPX IADNA 00171 LABORATOR LABORATOR CHLAMYDIA 7 Y [place] OF Y KARTHIK OF RM RM TRACHOMAT H H IS AMPLIFIED PROBE TQ SCREENING G0202 [facility] 7 REGIONAL REGIONAL MAMMOGRAP [facility] MEDICAL HY ALEXANDRA JINNY STEARNS INCL CAD WHEN PERFORMD SCREEN Q0091 [facility] PAP 6 HEALTH OF SMEAR; OBTAIN [place] PREP &C R ONVEY TO LAB CERV/VAGI G0101 [facility] NAL 6 HEALTH OF CANCER SCR; [place] PELV&CLIN R BREAST EXAM SCR G0145 LABORATOR LABORATOR CYTOPATH 6 Y [place] OF Y KARTHIK OF CERV/VAG RM RM SCR H H AUTO&MNL RSCR PHYS GROUND A0425 YELLOW YELLOW MILEAGE 6 1SDK PER [employer] SYSTEMS E SYSTEMS STATUTE IN IN MILE BASIC 37841 [facility] METABOLIC 6 [facility] CALCIUM TOTAL CULTURE 33620 [facility] BACTERIAL 6 [facility] QUANTTATI VE COLONY COUNT URINE AMB A0427 YELLOW YELLOW SERVICE 6 [place] E SYSTEMS E SYSTEMS EMERGENCY IN IN TRANSPORT LEVEL 1 DRUG TEST G0479 [facility] [address] [place] [address] NSTRUMENT ED CHEMISTRY ANLYZER NONINVASI 77264 [facility] VE 6 [facility] OXIMETRY MULTIPLE DETER URNLS DIP 97015 [facility] 6 [facility] LET REAGENT AUTO MICROSCOP Y BLOOD 64464 [facility] COUNT 6 [facility] [facility] AUTO&AUTO DIFRNTL WBC INJECTION J1040 SHRAVAN QUINTANA JAM 6 ORTHOPEDI METHYLPRE C DNISOLONE ASSOCIAT ACETATE 80 MG NJX 10931 SHRAVAN QUIN[place]NA JAM DX/THER 6 ORTHOPEDI SBST C EPIDURAL/ ASSOCIAT SUBARACH LUMBAR/SA CRAL NERVE 72514 SHRAVAN QUINTANA CONDUCTIO 6 ORTHOPEDI N STUDIES C 7-8 ASSOCIAT STUDIES NEEDLE 58322 SHRAVAN QUINTANA EMG EA 6 ORTHOPEDI EXTREMTY C W/PARASPI ASSOCIAT NL AREA COMPLETE PRESSURIZ 09938 [facility] SOL[facility] ED/NONPRE 6 REGIONAL REGIONAL SSURIZED MEDICAL MEDICAL INHALATIO CENTE CENTE N TREATMENT AMBULANCE A0428 [facility] BLS AMBULANCE AMBULANCE NONEMERGE SERVICE SERVICE NCY TRANSPORT OBSERVATI 99494 [facility] REGIONAL YURY DISCHARGE PHYSICIAN PRA MANAGEMEN T GROUND A0425 [facility] OR MILEAGE 6 PER AMBULANCE AMBULANCE STATUTE SERVICE SERVICE MILE THERAPEUT 37423 [facility] SOLANO IC 6 REGIONAL REGIONAL PROPHYLAC MEDICAL MEDICAL TIC/DX [facility]ENTE CENTE INJECTION SUBQ/IM PRESSURIZ 08095 [facility] SOL[facility] ED/NONPRE 6 REGIONAL REGIONAL SSURIZED MEDICAL MEDICAL INHALATIO CENTE CENTE N TREATMENT ECHO 08193 [facility] SOL[facility]O TTHRC R-T 6 REGIONAL REGIONAL 2D MEDICAL MEDICAL W/WOM-MOD CENTE CENTE E COMPL SPEC&COLR D PRESSURIZ 79534 [facility] ED/NONPRE 6 REGIONAL REGIONAL SSURIZED MEDICAL MEDICAL INHALATIO CENTE CENTE N TREATMENT NONINVASI 98519 [facility] OSLANO VE 6 REGIONAL REGIONAL EAR/PULSE MEDICAL MEDICAL OXIMETRY [place] [address] [facility] SOLANO TROPONIN 6 REGIONAL REGIONAL QUANTITAT MEDICAL MEDICAL ROBYN CENTE CENTE MRI BRAIN 39029 [facility] BRAIN 6 REGIONAL REGIONAL STEM W/O MEDICAL MEDICAL CONTRAST CENTE CENTE MATERIAL ELECTROEN 72732 [facility] CEPHALOGR 6 REGIONAL REGIONAL AM W/REC MEDICAL MEDICAL AWAKE&ASL [facility] 35021 [facility] LYNCH OBSERVATI 6 REGIONAL TWA ON PHYSICIAN CARE/DAY PRA 50 MINUTES INITIAL 29533 [facility] 6 I JUSTIN I JUSTIN CARE/DAY 50 MINUTES THERAPEUT 27037 [facility] IC 6 REGIONAL REGIONAL PROPHYLAC MEDICAL MEDICAL TIC/DX [facility] INJECTION SUBQ/IM CV STRS 21383 [facility] SOL[facility]O TST 6 REGIONAL REGIONAL XERS&/OR MEDICAL MEDICAL RX CONT [facility] ECG TRCG ONLY LIPID 85310 [facility] PANEL 6 REGIONAL REGIONAL MEDICAL MEDICAL [facility] DRUG TEST G0479 [facility] SOL[facility]O 6 REGIONAL REGIONAL PRESUMP;I MEDICAL MEDICAL NSTRUMENT [facility] [place] [address] [facility] SOL[facility]O ANGIOGRAP 6 REGIONAL REGIONAL HY HEAD MEDICAL MEDICAL W/CONTRAS [facility] T/NONCONT RAST TECHNETIU A9500 [facility] M TC-99M 6 REGIONAL REGIONAL SESTAMIBI MEDICAL MEDICAL DX PER [facility] STUDY DOSE MYOCARDIA 67158 [facility] L SPECT 6 REGIONAL REGIONAL MULTIPLE MEDICAL MEDICAL STUDIES [place] [address] [facility] SOL[facility] THYROID 6 REGIONAL REGIONAL STIMULATI MEDICAL MEDICAL NG [facility] HORMONE TSH COLLECTIO 45776 [facility] N VENOUS 6 REGIONAL REGIONAL BLOOD MEDICAL MEDICAL VENIPUNCT [place] [address] [facility] SOL[facility]O ANGIOGRAP 6 REGIONAL REGIONAL HY NECK MEDICAL MEDICAL W/CONTRAS [facility] T[facility] G0378 [facility] OBSERVATI 6 REGIONAL REGIONAL ON MEDICAL MEDICAL SERVICE [facility] PER HOUR CREATINE 84531 [facility] SOLANO KINASE MB 6 REGIONAL REGIONAL FRACTION MEDICAL MEDICAL ONLY [facility] COMPREHEN 84885 [facility] SOL[facility]O SIVE 6 REGIONAL REGIONAL METABOLIC MEDICAL MEDICAL PANEL [facility] COLLECTIO 34605 [facility] N VENOUS 6 REGIONAL REGIONAL BLOOD MEDICAL MEDICAL VENIPUNCT [facility] URE AMB A0427 [facility] SERVICE 6 R FIRE R FIRE [facility] EMS EMERGENCY TRANSPORT LEVEL 1 ECG 47588 [facility] SOL[facility]O ROUTINE 6 REGIONAL REGIONAL ECG MEDICAL MEDICAL W/LEAST CENTE CENTE 12 LDS TRCG ONLY W/O I&R GROUND A0425 [facility] R [facility]RE [facility] [place] [address] [facility] SOLANO HEAD/BRAI 6 REGIONAL REGIONAL N W/O MEDICAL MEDICAL CONTRAST [facility] MATERIAL RADIOLOGI 97652 [facility] C 6 REGIONAL REGIONAL EXAMINATI MEDICAL MEDICAL ON CHEST [facility] SINGLE VIEW FRONTAL BLOOD 54986 [facility] COUNT 6 REGIONAL REGIONAL COMPLETE MEDICAL MEDICAL AUTO&AUTO [facility] [place] [address] [facility] SOLANO TROPONIN 6 REGIONAL REGIONAL QUANTITAT MEDICAL MEDICAL ROBYN CENTE CENTE ECG 84610 [facility] RISHMAWI ROUTINE 6 TIFF HAZ ECG EMERGENCY W/LEAST PHYS 12 LDS I&R ONLY INJECTION J1040 [place] RICE JAM 6 ORTHOPEDI METHYLPRE C DNISOLONE ASSOCIAT ACETATE 80 MG NJX 62326 [place] LILIAN JAM DX/THER 6 ORTHOPEDI SBST C EPIDURAL/ ASSOCIAT SUBARACH LUMBAR/SA CRAL POST-ADEOLA 23125 KANCHAN ARZOLAT 6 LASER SURGERY E-STIM G0283 [facility] SOL[facility]O 1/> AREAS 6 REGIONAL REGIONAL OTH THAN MEDICAL MEDICAL WND CARE CENTE CENTE PART TX PLAN THERAPEUT 44911 [facility] SOLANO IC PX 1/> 6 REGIONAL REGIONAL AREAS MEDICAL MEDICAL EACH 15 CENTE CENTE MIN EXERCISES APPL 47504 [facility] MODALITY 6 REGIONAL REGIONAL 1/> AREAS MEDICAL MEDICAL TRACTION CENTE CENTE MECHANICA L OPHTHALMI 06908 KANCHAN Ferguson US DX 6 CORNEAL PACHYMETR Y UNI/BI DETERMINA 68689 KANCHAN PERSON TION 6 REFRACTIV E STATE E-STIM G0283 [facility] SOL[facility]O 1/> AREAS 6 REGIONAL REGIONAL OTH THAN MEDICAL MEDICAL WND CARE CENTE CENTE PART TX PLAN APPL 77621 [facility] MODALITY 6 REGIONAL REGIONAL 1/> AREAS MEDICAL MEDICAL TRACTION CENTE CENTE MECHANICA L THERAPEUT 54440 [facility] SOLANO IC PX 1/> 6 REGIONAL REGIONAL AREAS MEDICAL MEDICAL EACH 15 CENTE CENTE MIN EXERCISES ARTHROCEN 17736 SHRAVAN MIN TESIS 6 ORTHOPEDI ASPIR&/IN C J MAJOR ASSOCIAT JT/BURSA W/O US INJECTION J1030 SHRAVAN MIN 6 ORTHOPEDI METHYLPRE C DNISOLONE ASSOCIAT ACETATE 40 MG APPL 41313 [facility] SOL[facility] MODALITY 6 REGIONAL REGIONAL 1/> AREAS MEDICAL MEDICAL TRACTION CENTE CENTE MECHANICA L THERAPEUT 43996 [facility] SOLANO IC PX 1/> 6 REGIONAL REGIONAL AREAS MEDICAL MEDICAL EACH 15 CENTE CENTE MIN EXERCISES E-STIM G0283 [facility] SOL[facility]O 1/> AREAS 6 REGIONAL REGIONAL OTH THAN MEDICAL MEDICAL WND CARE CENTE CENTE PART TX PLAN APPL 56188 [facility] MODALITY 6 REGIONAL REGIONAL 1/> AREAS MEDICAL MEDICAL ELEC CENTE CENTE STIMJ EA 15 MIN THERAPEUT 64893 [facility] SOLANO IC PX 1/> 6 REGIONAL REGIONAL AREAS MEDICAL MEDICAL EACH 15 CENTE CENTE MIN EXERCISES PHYSICAL 09324 [facility] THERAPY 6 REGIONAL REGIONAL EVALUATIO MEDICAL MEDICAL N CENTE CENTE APPL 32660 [facility] MODALITY 6 REGIONAL REGIONAL 1/> AREAS MEDICAL MEDICAL TRACTION CENTE CENTE MECHANICA L MRI 43381 [facility] SPINAL 6 REGIONAL REGIONAL CANAL MEDICAL MEDICAL LUMBAR CENTE CENTE W/O & W/CONTR MATRL RADEX 50577 [facility] SOL[facility] SPINE 6 REGIONAL REGIONAL LUMBOSACR MEDICAL MEDICAL AL CENTE CENTE MINIMUM 4 VIEWS COLLECTIO 77164 R[facility] CLEMENS NINOSKA N VENOUS 6 REGIONAL BLOOD PHYSICIAN VENIPUNCT PRA URE COMPREHEN 82602 [facility] SOLANO SIVE 6 REGIONAL REGIONAL METABOLIC MEDICAL MEDICAL PANEL CENTE CENTE LIPID 37313 [facility] PANEL 6 REGIONAL REGIONAL MEDICAL MEDICAL CENTE CENTE IMMUNOASS 01580 [facility] SOL[facility] AY 5 REGIONAL REGIONAL ANALYTE MEDICAL MEDICAL QUAL/SEMI CENTE CENTE QUAL MULTIPLE STEP COLLECTIO 81518 [facility] SOL[facility] N VENOUS 5 REGIONAL REGIONAL BLOOD MEDICAL MEDICAL [place] [address] [facility] TANOUS, SURG 5 JR EDW PATHOLOGY PATHOLOGY ASSOCIAT GROSS&JASKARAN ROSCOPIC EXAM SPECIAL 55885 [facility] TANOUS, STAIN 5 JR EDW GROUP 1 PATHOLOGY MICROORGA ASSOCIAT NISMS I&R SPCL STN 32301 [facility] TANOUS, 2 I&R 5 JR EDW EXCPT PATHOLOGY MICROORG/ ASSOCIAT ENZYME/IM CYT COLONOSCO 19768 [facility] CERNA[facility] PY 5 CLINIC IVAN W/BIOPSY SINGLE/MU LTIPLE EGD 99844 [facility] CLARKENAMIN TRANSORAL 5 CLINIC IVAN BIOPSY SINGLE/MU LTIPLE ANES 92215 [facility] TERRY LOWER 5 LTH DICK INTESTINE ANESTHESI A PSC ENDOSCOPY DISTAL DUODENUM COLLECTIO 46897 [facility] N VENOUS 5 REGIONAL REGIONAL BLOOD MEDICAL MEDICAL VENIPUNCT [facility] [place] [address] [facility] SOLANO GAMMAGLOB 5 REGIONAL REGIONAL ULIN IGA MEDICAL MEDICAL IGD IGG [facility] IGM EACH BLOOD 07794 [facility] COUNT 5 REGIONAL REGIONAL COMPLETE MEDICAL MEDICAL AUTO&AUTO [facility] DIFRNTL WBC RADIOLOGI 53207 [facility] C EXAM 5 REGIONAL REGIONAL CHEST 2 MEDICAL MEDICAL VIEWS [facility] FRONTAL&L ATERAL COMPREHEN 11083 [facility] SIVE 5 REGIONAL REGIONAL METABOLIC MEDICAL MEDICAL PANEL [place] [address] [facility] SOL[facility]O MULT STEP 5 REGIONAL REGIONAL METHOD MEDICAL MEDICAL NOS EACH [facility] ORGANISM CUL BACT 18472 [facility] SOL[facility] STOOL 5 REGIONAL REGIONAL AEROBIC MEDICAL MEDICAL ADDL [facility] PATHOGENS &[place] [address] [facility] SOLANO LIPASE 5 REGIONAL REGIONAL MEDICAL MEDICAL [place] [address] RUSS SOLANO CLOSTRIDI 5 REGIONAL REGIONAL UM MEDICAL MEDICAL DIFFICILE [facility] TOXIN ANESTHESI 19572 [facility] KAYLEN A EYE 5 LTH CADENCE LENS ANESTHESI SURGERY A PSC CATARACT 39666 KANCHAN RAZA KANCHAN RAZA REMOVAL 5 INSERTION OF LENS ECG 87667 [facility] KUVLIEV ROUTINE 5 REGIONAL YURY ECG MEDICAL W/LEAST CENTE 12 LDS I&R ONLY POST-ADEOLA 64375 KANCHAN PERSON RACT 5 LASER SURGERY OPH BMTRY 99274 KANCHAN PERSON US 5 ECHOGRAPY A-SCAN IO LENS PWR GUY PRTBLE E0431 [facility] GASEOUS 5 INC INC O2 SYS RENT; FLWMTR HUMIDFR&M ASK O2 CONC 1 E1390 [facility] DEL PORT 5 INC INC 85%/>02 CONC AT PRSC FLW RATE O2 CONC 1 E1390 [facility] DEL PORT 5 INC INC 85%/>02 CONC AT PRSC FLW RATE PRTBLE E0431 [facility] GASEOUS 5 INC INC O2 SYS RENT; FLWMTR HUMIDFR&M ASK HOSP[facility] 17851 [facility] DISCHARGE 5 DAY MANAGEMEN T 30 MIN/< INITIAL 40556 [facility] 5 CARE/DAY 70 MINUTES PRTBLE E0431 [facility] GASEOUS 5 INC INC O2 SYS RENT; FLWMTR HUMIDFR&M ASK O2 CONC 1 E1390 [facility] DEL PORT 5 INC INC 85%/>02 CONC AT PRSC FLW RATE US SOFT 92390 [facility] TISSUE 4 REGIONAL REGIONAL HEAD & MEDICAL MEDICAL NECK REAL CENTE CENTE TIME IMGE DOCM PRTBLE E0431 [facility] INC INC O2 SYS RENT; FLWMTR HUMIDFR&M ASK O2 CONC 1 E1390 [facility] DEL PORT 4 INC INC 85%/>02 CONC AT PRSC FLW RATE O2 CONC 1 E1390 [facility] INC 85%/>02 CONC AT PRSC FLW RATE PRTBLE E0431 [facility] GASEOUS 4 INC INC O2 SYS RENT; FLWMTR HUMIDFR&M ASK DUPLEX 67464 [facility] SCAN 4 REGIONAL REGIONAL EXTRACRAN MEDICAL MEDICAL IAL ART CENTE CENTE COM[place] [address] [facility] [place] MAT EXTREMITY 4 RADIOLOGY W/O CONTRAST MATERIAL CT LUMBAR 99741 [facility] [place] SPINE 4 RADIOLOGY LD IV ALL W/[place] [address] [facility] [place] HEAD/BRAI 4 RADIOLOGY LD IV ALL N W/O CONTRAST MATERIAL RADEX 86940 [facility] [place] MAT SHOULDER 4 RADIOLOGY COMPLETE MINIMUM 2 VIEWS ARFORMOTE J7605 RELIANT RELIANT ROL INHAL 4 PHARMACY PHARMACY JOHN SERVICES SERVICES NONCOMP UNIT DOSE 15 MG ALBUTEROL J7613 RELIANT RELIANT INHAL 4 PHARMACY PHARMACY NON-CP SERVICES SERVICES PROD THRU DME U DOSE 1 MG PHRM Q0513 RELIANT RELIANT DISPENSIN 4 PHARMACY PHARMACY G FEE SERVICES SERVICES INHALATIO N RX; PER 30 DAYS LIPID 31568 [facility] PANEL 4 [facility] MEDICAL [facility] JINNY COMPREHEN 83412 [facility] 4 [facility] MEDICAL PANEL JINNY STEARNS PRTBLE E0431 [facility] GASEOUS 4 INC INC O2 SYS RENT; FLWMTR HUMIDFR&M ASK O2 CONC 1 E1390 [facility] DEL PORT 4 INC INC 85%/>02 CONC AT PRSC FLW RATE CRITICAL [address]162 [place] [address] TIFF RYA ILL/INJUR EMERGENCY ED SERVI PATIENT INIT 30-74 MIN AMB A0427 [facility] SERVICE 4 R FIRE R FIRE ALS EMS EMS EMERGENCY TRANSPORT LEVEL 1 GROUND A0425 [facility] FIRE R FIRE PER EMS EMS STATUTE [facility] 27652 [facility] DISCHARGE 4 DAY MANAGEMEN T 30 MIN/< SBSQ 00030 [facility] 4 CARE/DAY 25 MINUTES INITIAL 49120 [facility] 4 CARE/DAY 50 MINUTES CRITICAL [address]2592 [place] [address] TIFF RYA ILL/INJUR EMERGENCY ED SERVI PATIENT INIT 30-74 MIN RADIOLOGI 57385 [facility] MAR C 4 N EXAMINATI RADIOLOGY ON CHEST GROUP P [place] FRONTAL ECG 61526 [facility] ROUTINE 4 TIFF RYA ECG EMERGENCY W/LEAST SERVI 12 LDS I&R ONLY ARFORMOTE J7605 RELIANT RELIANT ROL INHAL 4 PHARMACY PHARMACY JOHN SERVICES SERVICES NONCOMP UNIT DOSE 15 MG PHRM Q0513 RELIANT RELIANT DISPENSIN 4 PHARMACY PHARMACY G FEE SERVICES SERVICES INHALATIO N RX; PER 30 DAYS ALBUTEROL J7613 RELIANT RELIANT INHAL 4 PHARMACY PHARMACY NON-CP SERVICES SERVICES PROD THRU DME U DOSE 1 MG PRTBLE E0431 [facility] GASEOUS 4 INC INC O2 SYS RENT; FLWMTR HUMIDFR&M ASK O2 CONC 1 E1390 [facility] DEL PORT 4 INC INC 85%/>02 CONC AT PRSC FLW RATE O2 CONC 1 E1390 [facility] PORT 4 INC INC 85%/>02 CONC AT PRSC FLW RATE PRTBLE E0431 [facility] GASEOUS 4 INC INC O2 SYS RENT; FLWMTR HUMIDFR&M ASK PHRM Q0513 RELIANT RELIANT DISPENSIN 4 PHARMACY PHARMACY G FEE SERVICES SERVICES INHALATIO N RX; PER 30 DAYS ALBUTEROL J7613 RELIANT RELIANT INHAL 4 PHARMACY PHARMACY NON-CP SERVICES SERVICES PROD THRU DME U DOSE 1 MG ARFORMOTE J7605 RELIANT RELIANT ROL INHAL 4 PHARMACY PHARMACY JOHN SERVICES SERVICES NONCOMP UNIT DOSE 15 MG O2 CONC 1 E1390 [facility] [place] 4 INC INC 85%/>02 CONC AT PRSC FLW RATE PRTBLE E0431 [facility] GASEOUS 4 INC INC O2 SYS RENT; FLWMTR [place]FR&[place] [address] [facility] THYROID 4 REGIONAL REGIONAL STIMULATI MEDICAL MEDICAL NG CENTE CENTE HORMONE TSH COMPREHEN 23891 [facility] SIVE 4 REGIONAL REGIONAL METABOLIC MEDICAL MEDICAL PANEL CENTE CENTE LIPID 16073 R[facility] SOLANO PANEL 4 REGIONAL REGIONAL MEDICAL MEDICAL CENTE CENTE BLOOD 27495 [facility]USS COUNT 4 [facility] SMEAR MEDICAL MEDICAL MCRSCP JINNY STEARNS W/MNL DIFRNTL WBC COUNT BLOOD 84763 [facility] RUSS COUNT 4 [facility] COMPLETE MEDICAL MEDICAL AUTOMATED JINNY STEARNS ARFORMOTE J7605 RELIANT RELIANT ROL INHAL 4 PHARMACY PHARMACY JOHN SERVICES SERVICES NONCOMP UNIT DOSE 15 MG ALBUTEROL J7613 RELIANT RELIANT INHAL 4 PHARMACY PHARMACY NON-CP SERVICES SERVICES PROD THRU DME U DOSE 1 MG ADMN SET A7005 [facility] W/SM VOL 4 INC INC NONFILTR NEBULIZR NON-DISPB L PHRM Q0513 RELIANT RELIANT DISPENSIN 4 PHARMACY PHARMACY G FEE SERVICES SERVICES INHALATIO N RX; PER 30 DAYS PRTBLE E0431 [facility] GASEOUS 4 INC INC O2 SYS RENT; FLWMTR HUMIDFR&M ASK O2 CONC 1 E1390 [facility] 4 INC INC 85%/>02 CONC AT PRSC FLW RATE ARFORMOTE J7605 RELIANT RELIANT ROL INHAL 4 PHARMACY PHARMACY JOHN SERVICES SERVICES NONCOMP UNIT DOSE 15 MG PHRM Q0513 RELIANT RELIANT DISPENSIN 4 PHARMACY PHARMACY G FEE SERVICES SERVICES INHALATIO N RX; PER 30 DAYS ALBUTEROL J7613 RELIANT RELIANT INHAL 4 PHARMACY PHARMACY NON-CP SERVICES SERVICES PROD THRU DME U DOSE 1 MG PRTBLE E0431 [facility] GASEOUS 4 INC INC O2 SYS RENT; FLWMTR HUMIDFR&M ASK O2 CONC 1 E1390 [facility] DEL PORT 4 INC INC 85%/>02 CONC AT PRSC FLW RATE CT LUMBAR 62802 [facility] [place] HEATH JAM SPINE 4 RADIOLOGY W/O CONTRAST MATERIAL O2 CONC 1 E1390 [facility] DEL PORT 4 INC INC 85%/>02 CONC AT PRSC FLW RATE PRTBLE E0431 [facility] GASEOUS 4 INC INC O2 SYS RENT; FLWMTR HUMIDFR&M ASK PRTBLE E0431 [facility] GASEOUS 4 INC INC O2 SYS RENT; FLWMTR HUMIDFR&M ASK O2 CONC 1 E1390 [facility] DEL PORT 4 INC INC 85%/>02 CONC AT PRSC FLW RATE O2 CONC 1 E1390 [facility] [place] 4 INC INC 85%/>02 CONC AT PRSC FLW RATE PRTBLE E0431 [facility] GASEOUS 4 INC INC O2 SYS RENT; FLWMTR HUMIDFR&M ASK NEBULIZER E0570 [facility] WITH 4 INC INC COMPRESSO R CATARACT 96773 KANCHAN RAZA KANCHAN RAZA REMOVAL 4 INSERTION OF LENS ANESTHESI 56210 [facility] HULZEBOS A EYE 4 LTH RYA LENS ANESTHESI SURGERY A PSC ECG 62552 [facility] SEALS AGUSTÍN ROUTINE 4 REGIONAL ECG MEDICAL W/LEAST CENTE 12 LDS I&R ONLY O2 CONC 1 E1390 [facility] PORT 4 INC INC 85%/>02 CONC AT PRSC FLW RATE PRTBLE E0431 [facility] GASEOUS 4 INC INC O2 SYS RENT; FLWMTR HUMIDFR&M ASK BASIC 30566 [facility] METABOLIC 4 REGIONAL REGIONAL PANEL MEDICAL MEDICAL CALCIUM CENTE JAMMIEE TOTAL COLLECTIO 56828 [facility] N VENOUS 4 REGIONAL REGIONAL BLOOD MEDICAL MEDICAL VENIPUNCT CENTE JAMMIEE URE BLOOD 25600 [facility] COUNT 4 REGIONAL REGIONAL COMPLETE MEDICAL MEDICAL AUTO&AUTO CENTE CENTE DIFRNTL WBC NEBULIZER E0570 [facility] WITH 3 INC INC COMPRESSO R OPH BMTRY 33284 KANCHAN RAZA KANCHAN RAZA US 3 ECHOGRAPY A-SCAN IO LENS PWR GUY TENS E0730 EMPI INC EMPI INC DEVICE 3 4/MORE LEADS MULTI NERVE STIMULATI ON O2 CONC 1 E1390 [facility] DEL PORT 3 INC INC 85%/>02 CONC AT PRSC FLW RATE PRTBLE E0431 [facility] GASEOUS 3 INC INC O2 SYS RENT; FLWMTR HUMIDFR&M ASK PHRM Q0513 RELIANT RELIANT DISPENSIN 3 PHARMACY PHARMACY G FEE SERVICES SERVICES INHALATIO N RX; PER 30 DAYS ADMN SET A7003 [facility] SM VOL 3 INC INC NONFILTR PNEUMAT NEBULIZR DISPBL ALBUTEROL J7613 RELIANT RELIANT INHAL 3 PHARMACY PHARMACY NON-CP SERVICES SERVICES PROD THRU DME U DOSE 1 MG RADEX ABD 93726 [facility] [place] MCQUAIDE COMPL 3 RADIOLOGY CLARA AQT ABD W/S/E/D VIEWS 1 VIEW CH ARFORMOTE J7605 RELIANT RELIANT ROL INHAL 3 PHARMACY PHARMACY JOHN SERVICES SERVICES NONCOMP UNIT DOSE 15 MG NEBULIZER E0570 [facility] WITH 3 INC INC COMPRESSO R ARFORMOTE J7605 RELIANT RELIANT ROL INHAL 3 PHARMACY PHARMACY JOHN SERVICES SERVICES NONCOMP UNIT DOSE 15 MG TENS E0730 EMPI INC EMPI INC DEVICE 3 4/MORE LEADS MULTI NERVE STIMULATI ON THERAPEUT 86213 [place] ANASTACIA IC PX 1/> 3 ORTHOPEDI JACKIE AREAS C EACH 15 ASSOCIAT MIN EXERCISES ALBUTEROL J7613 RELIANT RELIANT INHAL 3 PHARMACY PHARMACY NON-CP SERVICES SERVICES PROD THRU DME U DOSE 1 MG SELF-CARE 89270 [place] ANASTACIA /HOME 3 ORTHOPEDI JACKIE MGMT C TRAINING ASSOCIAT EACH 15 MINUTES PHRM Q0513 RELIANT RELIANT DISPENSIN 3 PHARMACY PHARMACY G FEE SERVICES SERVICES INHALATIO N RX; PER 30 DAYS PRTBLE E0431 [facility] GASEOUS 3 INC INC O2 SYS RENT; FLWMTR HUMIDFR&M ASK E-STIM G0283 [facility]/> AREAS 3 ORTHOPEDI OTH THAN C WND CARE ASSOCIAT PART TX PLAN THERAPEUT 90096 [place] RACHELLE GRE IC PX 1/> 3 ORTHOPEDI AREAS C EACH 15 ASSOCIAT MIN EXERCISES O2 CONC 1 E1390 [facility] DEL PORT 3 INC INC 85%/>02 CONC AT PRSC FLW RATE THERAPEUT 51347 [place] IC PX 1/> 3 ORTHOPEDI JACKIE AREAS C EACH 15 ASSOCIAT MIN EXERCISES E-STIM G0283 SH[facility] GALAVIZ 1/> AREAS 3 ORTHOPEDI JACKIE OTH THAN C WND CARE ASSOCIAT PART TX PLAN E-STIM G0283 SH[facility]AN GALAVIZ 1/> AREAS 3 ORTHOPEDI JACKIE OTH THAN C WND CARE ASSOCIAT PART TX PLAN PHYSICAL 29584 SHRAVAN GALAVIZ THERAPY 3 ORTHOPEDI JACKIE EVALUATIO C N ASSOCIAT THERAPEUT 39084 [place] GALAVIZ IC PX 1/> 3 ORTHOPEDI JACKIE AREAS C EACH 15 ASSOCIAT MIN EXERCISES ALBUTEROL J7613 RELIANT RELIANT INHAL 3 PHARMACY PHARMACY NON-CP SERVICES SERVICES PROD THRU DME U DOSE 1 MG NEBULIZER E0570 [facility] WITH 3 INC INC COMPRESSO R ADMN SET A7005 [facility] W/SM VOL 3 INC INC NONFILTR NEBULIZR NON-DISPB L PHRM Q0513 RELIANT RELIANT DISPENSIN 3 PHARMACY PHARMACY G FEE SERVICES SERVICES INHALATIO N RX; PER 30 DAYS PRTBLE E0431 [facility] GASEOUS 3 INC INC O2 SYS RENT; FLWMTR HUMIDFR&M ASK O2 CONC 1 E1390 [facility] DEL PORT 3 INC INC 85%/>02 CONC AT PRS FLW RATE RADEX 16184 [place] BEATRIZ SPINE 3 MEDICAL FRA LUMBOSACR SERV AL FOUNDATIO MINIMUM 4 VIEWS MRI 01701 [facility] SPINAL 3 REGIONAL REGIONAL CANAL MEDICAL MEDICAL CERVICAL CENTE CENTE W/O CONTRAST MATRL ALBUTEROL J7613 RELIANT RELIANT INHAL 3 PHARMACY PHARMACY NON-CP SERVICES SERVICES PROD THRU DME U DOSE 1 MG PHRM Q0513 RELIANT RELIANT DISPENSIN 3 PHARMACY PHARMACY G FEE SERVICES SERVICES INHALATIO N RX; PER 30 DAYS NEBULIZER E0570 [facility] WITH 3 INC INC COMPRESSO R PRTBLE E0431 [facility] GASEOUS 3 INC INC O2 SYS RENT; FLWMTR HUMIDFR&M ASK O2 CONC 1 E1390 [facility] DEL PORT 3 INC INC 85%/>02 CONC AT [facility] FLW RATE PHRM Q0513 RELIANT RELIANT DISPENSIN 3 PHARMACY PHARMACY G FEE SERVICES SERVICES INHALATIO N RX; PER 30 DAYS ALBUTEROL J7613 RELIANT RELIANT INHAL 3 PHARMACY PHARMACY NON-CP SERVICES SERVICES PROD THRU DME U DOSE 1 MG INITIAL [id number] [place]ACK CARE/DAY PULMONARY 70 M MINUTES SBSQ [id number] MEANS [place] [id number] ADULT RAE CARE/DAY PRIMARY 35 CARE CLI MINUTES SBSQ [id number] MEANS [facility] 3 ADULT RAE CARE/DAY PRIMARY 35 CARE CLI MINUTES SBSQ [phone] MEANS [facility] 3 ADULT RAE CARE/DAY PRIMARY 35 CARE CLI MINUTES SBSQ [phone] MEANS [facility] 3 ADULT RAE CARE/DAY PRIMARY 35 CARE CLI MINUTES SBSQ [id number] MEANS [facility] 3 ADULT RAE CARE/DAY PRIMARY 35 CARE CLI MINUTES ECG 28635 [facility] ROUTINE 3 REGIONAL YURY ECG MEDICAL W/LEAST CENTE 12 LDS I&R ONLY CT THORAX 56108 [facility] [place] [facility] W/O 3 RADIOLOGY [place] CONTRAST MATERIAL RADIOLOGI 43571 [facility] [place] C EXAM 3 RADIOLOGY [place] CHEST 2 VIEWS FRONTAL&L ATERAL NEBULIZER E0570 [facility] WITH 3 INC INC COMPRESSO R PRTBLE E0431 [facility] GASEOUS 3 INC INC O2 SYS RENT; FLWMTR HUMIDFR&M ASK O2 CONC 1 E1390 [facility] PORT 3 INC INC 85%/>02 [facility] AT [facility] FLW RATE PHRM Q0513 RELIANT RELIANT DISPENSIN 3 PHARMACY PHARMACY G FEE SERVICES SERVICES INHALATIO N RX; PER 30 DAYS ALBUTEROL J7613 RELIANT RELIANT INHAL 3 PHARMACY PHARMACY NON-CP SERVICES SERVICES PROD THRU DME U DOSE 1 MG MRI 93630 [place] [facility] SPINAL 3 MEDICAL EDW CANAL SERV LUMBAR FOUNDATIO W/O CONTRAST MATERIAL CONTINUOU E0601 FERREIRA FERREIRA S 3 MEDICAL MEDICAL POSITIVE EQUIPMENT EQUIPMENT AIRWAY PRESSURE DEVICE NEBULIZER E0570 [facility] WITH 3 INC INC COMPRESSO R PRTBLE E0431 [facility] GASE[facility] 3 INC INC O2 SYS RENT; FLWMTR HUMIDFR&M ASK O2 CONC 1 E1390 [facility] [place] 3 INC INC 85%/>02 CONC AT PRS FLW RATE PHRM Q0513 RELIANT RELIANT DISPENSIN 3 PHARMACY PHARMACY G FEE SERVICES SERVICES INHALATIO N RX; PER 30 DAYS ALBUTEROL J7613 RELIANT RELIANT INHAL 3 PHARMACY PHARMACY NON-CP SERVICES SERVICES PROD THRU DME U DOSE 1 MG CONTINUOU E0601 F[facility]A FERREIRA S 3 MEDICAL MEDICAL POSITIVE EQUIPMENT EQUIPMENT AIRWAY PRESSURE DEVICE NEBULIZER E0570 [facility] WITH 3 INC INC COMPRESSO R ADMN SET A7003 [facility] SM VOL 3 INC INC NONFILTR PNEUMAT NEBULIZR DISPBL ALBUTEROL J7613 RELIANT RELIANT INHAL 3 PHARMACY PHARMACY NON-CP SERVICES SERVICES PROD THRU DME U DOSE 1 MG PHRM Q0513 RELIANT RELIANT DISPENSIN 3 PHARMACY PHARMACY G FEE SERVICES SERVICES INHALATIO N RX; PER 30 DAYS PRTBLE E0431 [facility] GASE[facility] 3 INC INC O2 SYS RENT; FLWMTR HUMIDFR&M ASK O2 CONC 1 E1390 [facility] [place] 3 INC INC 85%/>02 [facility] AT [facility] FLW RATE ECG 464[address] [place] GREG ZECHARIAH ROUTINE 3 MEDICAL ECG SERV W/LEAST FOUNDATIO 12 LDS I&[place] [address] [place] RASLAU HEAD/BRAI 3 MEDICAL FLA N W/O SERV CONTRAST FOUNDATIO MATERIAL HUMDIFIR E0562 F[facility]IR[facility] FERREIRA HEATED 3 MEDICAL MEDICAL USED EQUIPMENT EQUIPMENT W/POS ARWAY PRESSURE DEVICE CONTINUOU E0601 FERREIRA FERREIRA S 3 MEDICAL MEDICAL POSITIVE EQUIPMENT EQUIPMENT AIRWAY PRESSURE DEVICE NEBULIZER E0570 [facility] WITH 3 INC INC COMPRESSO R PRTBLE E0431 [facility] GASE[facility] 3 INC INC O2 SYS RENT; FLWMTR HUMIDFR&M ASK O2 CONC 1 E1390 [facility] [place] 3 INC INC 85%/>02 [facility] AT [facility] FLW RATE ALBUTEROL J7613 RELIANT RELIANT INHAL 3 PHARMACY PHARMACY NON-CP SERVICES SERVICES PROD THRU DME U DOSE 1 MG PHRM Q0513 RELIANT RELIANT DISPENSIN 3 PHARMACY PHARMACY G FEE SERVICES SERVICES INHALATIO N RX; PER 30 DAYS HUMDIFIR E0562 FERREIRA FERREIRA HEATED 3 MEDICAL MEDICAL USED EQUIPMENT EQUIPMENT W/POS ARWAY PRESSURE DEVICE CONTINUOU E0601 FERREIRA FERREIRA S 3 MEDICAL MEDICAL POSITIVE EQUIPMENT EQUIPMENT AIRWAY PRESSURE DEVICE NEBULIZER E0570 [facility] WITH 3 INC INC COMPRESSO R PRTBLE E0431 [facility] GASEOUS 3 INC INC O2 SYS RENT; FLWMTR HUMIDFR&M ASK O2 CONC 1 E1390 [facility] 3 INC INC 85%/>02 CONC AT PRSC FLW RATE PHRM Q0513 RELIANT RELIANT DISPENSIN 3 PHARMACY PHARMACY G FEE SERVICES SERVICES INHALATIO N RX; PER 30 DAYS CONTINUOU E0601 FERREIRA FERREIRA S 3 MEDICAL MEDICAL POSITIVE EQUIPMENT EQUIPMENT AIRWAY PRESSURE DEVICE ALBUTEROL J7613 RELIANT RELIANT INHAL 3 PHARMACY PHARMACY NON-CP SERVICES SERVICES PROD THRU DME U DOSE 1 MG NEBULIZER E0570 [facility] WITH 3 INC INC COMPRESSO R PRTBLE E0431 [facility] GASEOUS 3 INC INC O2 SYS RENT; FLWMTR HUMIDFR&M ASK O2 CONC 1 E1390 [facility] DEL PORT 3 INC INC 85%/>02 CONC AT PRSC FLW RATE HUMDIFIR E0562 FERREIRA FERREIRA HEATED 3 MEDICAL MEDICAL USED EQUIPMENT EQUIPMENT W/POS ARWAY PRESSURE DEVICE CONTINUOU E0601 FERREIRA FERREIRA S 3 MEDICAL MEDICAL POSITIVE EQUIPMENT EQUIPMENT AIRWAY PRESSURE DEVICE NEBULIZER E0570 [facility] WITH 3 INC INC COMPRESSO R SPECIAL 65263 DO LEI STAIN 3 PATHOLOGY PATHOLOGY GROUP 1 SERVICES SERVICES MICROORGA NISMS I&R CULTURE 29990 DO LEI FUNGI 3 PATHOLOGY PATHOLOGY DEFINITIV SERVICES SERVICES [place] [address] DO LEI SURG 3 PATHOLOGY PATHOLOGY PATHOLOGY SERVICES SERVICES GROSS&JASKARAN ROSCOPIC EXAM CUL FNGI 96395 DO LEI MOLD/YEAS 3 PATHOLOGY PATHOLOGY T PRSMPTV SERVICES SERVICES ID SKN HAIR/NAIL PHRM Q0513 RELIANT RELIANT DISPENSIN 3 PHARMACY PHARMACY G FEE SERVICES SERVICES INHALATIO N RX; PER 30 DAYS ADMN SET A7005 [facility] W/SM VOL 3 INC INC NONFILTR NEBULIZR NON-DISPB L ALBUTEROL J7613 RELIANT RELIANT INHAL 3 PHARMACY PHARMACY NON-CP SERVICES SERVICES PROD THRU DME U DOSE 1 MG PRTBLE E0431 [facility] GASEOUS 3 INC INC O2 SYS RENT; FLWMTR HUMIDFR&M ASK O2 CONC 1 E1390 [facility] DEL PORT 3 INC INC 85%/>02 CONC AT [facility] FLW RATE INJECTION J3301 MANOOCHEH MAZLOOMDO 3 R OST RAZA TRIAMCINO MAZLOOMD LONE ACETONIDE NOS 10 MG NJX 84867 MANOOCHEH MAZLOOMDO DX/THER 3 R OST RAZA AGT PVRT MAZLOOMD FACET JT LMBR/SAC 1 LEVEL NJX 44737 MANOOCHEH MAZLOOMDO DX/THER 3 R OST RAZA AGT PVRT MAZLOOMD FACET JT LMBR/SAC 2ND LEVEL CONTINUOU E0601 FERREIRA FERREIRA S 3 MEDICAL MEDICAL POSITIVE EQUIPMENT EQUIPMENT AIRWAY PRESSURE DEVICE HUMDIFIR E0562 FERREIRA FERREIRA HEATED 3 MEDICAL MEDICAL USED EQUIPMENT EQUIPMENT W/POS ARWAY PRESSURE DEVICE NEBULIZER E0570 [facility] WITH 3 INC INC COMPRESSO R ADMN SET A7003 [facility] SM VOL 3 INC INC NONFILTR PNEUMAT NEBULIZR DISPBL PHARM G0333 RELIANT RELIANT DISPEN 3 PHARMACY PHARMACY FEE INHAL SERVICES SERVICES RX; INITIAL 30-DAY SUPPLY ALBUTEROL J7613 RELIANT RELIANT INHAL 3 PHARMACY PHARMACY NON-CP SERVICES SERVICES PROD THRU DME U DOSE 1 MG PRTBLE E0431 [facility] GASEOUS 3 INC INC O2 SYS RENT; FLWMTR HUMIDFR&M ASK O2 CONC 1 E1390 [facility] DEL PORT 3 INC INC 85%/>02 CONC AT [facility] FLW RATE RADIOLOGI 94440 [facility] [place] PULID[place] C 3 RADIOLOGY CRISTIAN EXAMINATI ON CHEST SINGLE VIEW FRONTAL ECG 14077 [facility] ROUTINE 3 EMERGENCY ECG SERVICES W/LEAST 12 LDS I&R ONLY GROUND A0425 [facility] MILEAGE 3 R FIRE R FIRE PER EMS EMS STATUTE MILE AMB A0427 [facility] SERVICE 3 R FIRE R FIRE ALS EMS EMS EMERGENCY TRANSPORT LEVEL 1 RADIOLOGI 74373 [facility] [place] MCQUAIDE C EXAM 2 RADIOLOGY CLARA CHEST 2 VIEWS FRONTAL&L ATERAL HUMDIFIR E0562 FERREIRA FERREIRA HEATED 2 MEDICAL MEDICAL USED EQUIPMENT EQUIPMENT W/POS ARWAY PRESSURE DEVICE PRTBLE E0431 [facility] FELIZ GASEOUS 2 HOME HOME O2 SYS MEDICAL MEDICAL RENT; EQUIPME EQUIPME FLWMTR HUMIDFR&M ASK CONTINUOU E0601 FERREIRA FERREIRA S 2 MEDICAL MEDICAL POSITIVE EQUIPMENT EQUIPMENT AIRWAY PRESSURE DEVICE O2 CONC 1 E1390 [facility] DEL PORT 2 HOME HOME 85%/>02 MEDICAL MEDICAL CON[facility] R[facility] 49267 PREMIER RADHA GÓMEZ TION 2 EYE CARE REFRACTIV PLLC E STATE OPHTH 79234 PREMIER RADHA GÓMEZ MEDICAL 2 EYE CARE XM&EVAL PLLC COMPRE NEW PT 1/> VST HUMDIFIR E0562 FERREIRA FERREIRA HEATED 2 MEDICAL MEDICAL USED EQUIPMENT EQUIPMENT W/POS ARWAY PRESSURE DEVICE PRTBLE E0431 TRAY TRAY GASEOUS 2 HOME HOME O2 SYS MEDICAL MEDICAL RENT; EQUIPME EQUIPME FLWMTR HUMIDFR&M ASK CONTINUOU E0601 FERREIRA FERREIRA S 2 MEDICAL MEDICAL POSITIVE EQUIPMENT EQUIPMENT AIRWAY PRESSURE DEVICE O2 CONC 1 E1390 TRAY FELIZ DEL PORT 2 HOME HOME 85%/>02 MEDICAL MEDICAL CONC AT EQUIPME EQUIPME PRSC FLW RATE O2 CONC 1 E1390 TRAY FELIZ DEL PORT 2 HOME HOME 85%/>02 MEDICAL MEDICAL CONC AT EQUIPME EQUIPME PRSC FLW RATE CONTINUOU E0601 FERREIRA FERREIRA S 2 MEDICAL MEDICAL POSITIVE EQUIPMENT EQUIPMENT AIRWAY PRESSURE DEVICE HUMDIFIR E0562 FERREIRA FERREIRA HEATED 2 MEDICAL MEDICAL USED EQUIPMENT EQUIPMENT W/POS ARWAY PRESSURE DEVICE PRTBLE E0431 T[facility] TRAY GASEOUS 2 HOME HOME O2 SYS MEDICAL MEDICAL RENT; EQUIPME EQUIPME FLWMTR HUMIDFR&M ASK PRTBLE E0431 TRAY TRAY GASEOUS 2 HOME HOME O2 SYS MEDICAL MEDICAL RENT; EQUIPME EQUIPME FLWMTR HUMIDFR&M ASK HUMDIFIR E0562 FERREIRA FERREIRA HEATED 2 MEDICAL MEDICAL USED EQUIPMENT EQUIPMENT W/POS ARWAY PRESSURE DEVICE CONTINUOU E0601 FERREIRA FERREIRA S 2 MEDICAL MEDICAL POSITIVE EQUIPMENT EQUIPMENT AIRWAY PRESSURE DEVICE O2 CONC 1 E1390 TRAY FELIZ DEL PORT 2 HOME HOME 85%/>02 MEDICAL MEDICAL CONC AT EQUIPME EQUIPME PRSC FLW RATE O2 CONC 1 E1390 TRAY FELIZ DEL PORT 2 HOME HOME 85%/>02 MEDICAL MEDICAL CONC AT EQUIPME EQUIPME PRSC FLW RATE CONTINUOU E0601 FERREIRA FERREIRA S 2 MEDICAL MEDICAL POSITIVE EQUIPMENT EQUIPMENT AIRWAY PRESSURE DEVICE HUMDIFIR E0562 FERREIRA FERREIRA HEATED 2 MEDICAL MEDICAL USED EQUIPMENT EQUIPMENT W/POS ARWAY PRESSURE DEVICE PRTBLE E0431 TRAY TRAY GASEOUS 2 HOME HOME O2 SYS MEDICAL MEDICAL RENT; EQUIPME EQUIPME FLWMTR HUMIDFR&M ASK POLYSOM 69363 PATRICIA THEODORE THEODORE PATRICIA 6/>YRS 2 MD SLEEP CONSULTIN W/CPAP G SRV 4/> ADDL TITA ATTND POLYSOM 66894 RUSS RUSS 6/>YRS 2 REGIONAL REGIONAL SLEEP MEDICAL MEDICAL W/CPAP CENTE CENTE 4/> ADDL TITA ATTND PRTBLE E0431 TRAY ANTONIORELL GASEOUS 2 HOME HOME O2 SYS MEDICAL MEDICAL RENT; EQUIPME EQUIPME FLWMTR HUMIDFR&M ASK TUBING A7037 FERREIRA FERREIRA USED WITH 2 MEDICAL MEDICAL POSITIVE EQUIPMENT EQUIPMENT AIRWAY PRESSURE DEVICE CONTINUOU E0601 FERREIRA FERREIRA S 2 MEDICAL MEDICAL POSITIVE EQUIPMENT EQUIPMENT AIRWAY PRESSURE DEVICE FULL FACE A7030 FERREIRA FERREIRA MASK 2 MEDICAL MEDICAL USED EQUIPMENT EQUIPMENT W/POS ARWAY PRESS DEVICE EA FILTER A7038 FERREIRA FERREIRA DISPBL 2 MEDICAL MEDICAL USED EQUIPMENT EQUIPMENT W/POS ARWAY PRESSURE DEVICE FILTER A7039 FERREIRA FERREIRA NON 2 MEDICAL MEDICAL DISPBL EQUIPMENT EQUIPMENT USED W/POS ARWAY PRESS DEVICE HEADGEAR A7035 FERREIRA FERREIRA USED 2 MEDICAL MEDICAL W/POSITIV EQUIPMENT EQUIPMENT E AIRWAY PRESSURE DEVICE O2 CONC 1 E1390 TRAY FELIZ DEL PORT 2 HOME HOME 85%/>02 MEDICAL MEDICAL CONC AT EQUIPME EQUIPME PRSC FLW RATE HUMDIFIR E0562 FERREIRA FERREIRA HEATED 2 MEDICAL MEDICAL USED EQUIPMENT EQUIPMENT W/[place] [address] MANOOCHEH MAZLOOMDO JOINT 2 R OST RAZA ARTHRGRPH MAZLOOMD Y&/ANES/S TEROID W/LENNY POLYSOM 53727 PATRICIA THEODORE THEODORE PATRICIA 6/>YRS 2 MD SLEEP 4/> CONSULTIN ADDL G SRV TITA ATTND O2 CONC 1 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 85%/>02 MEDICAL MEDICAL CONC AT EQUIPME EQUIPME PRSC FLW RATE PRTBLE E0431 TRAY FELIZ GASEOUS 2 HOME HOME O2 SYS MEDICAL MEDICAL RENT; EQUIPME EQUIPME FLWMTR HUMIDFR&M ASK POLYSOM 34804 RUSS SOLANO 6/>YRS 2 REGIONAL REGIONAL SLEEP 4/> MEDICAL MEDICAL ADDL JINNY STEARNS TITA ATTND O2 CONC 1 E1390 TRAY FELIZ DEL PORT 2 HOME HOME 85%/>02 MEDICAL MEDICAL CONC AT EQUIPME EQUIPME PRSC FLW RATE PRTBLE E0431 TRAY FELIZ GASEOUS 2 HOME HOME O2 SYS MEDICAL MEDICAL RENT; EQUIPME EQUIPME FLWMTR HUMIDFR&M ASK OBSERVATI 33778 RUSS BRAR ON CARE 2 REGIONAL YURY DISCHARGE FAMILY PRACTI MANAGEMEN T ECG 24073 [facility] BRAR ROUTINE 2 REGIONAL YURY ECG FAMILY W/LEAST PRACTI 12 LDS I&R ONLY ECG 10478 RYAN CROWELL ROUTINE 2 EMERGENCY ECG SERVICES W/LEAST 12 LDS I&[place] [address] [facility] UNIQUE MOE HEAD/BRAI 2 RADIOLOGY CLARA N W/O CONTRAST MATERIAL AMB A0427 [facility] SERVICE 2 R FIRE R FIRE ALS EMS EMS EMERGENCY TRANSPORT LEVEL 1 RADIOLOGI 62788 [facility] UNIQUE MOE C EXAM 2 RADIOLOGY CLARA CHEST 2 VIEWS FRONTAL&L ATERAL GROUND A0425 [facility] MILEAGE 2 R FIRE R FIRE PER EMS EMS STATUTE MILE INITIAL 42328 RUSS BRAR OBSERVATI 2 REGIONAL YURY ON FAMILY CARE/DAY PRACTI 50 MINUTES PRTBLE E0431 TRAY FELIZ GASEOUS 2 HOME HOME O2 SYS MEDICAL MEDICAL RENT; EQUIPME EQUIPME FLWMTR HUMIDFR&M ASK WALKER E0143 TRAY FELIZ FOLDING 2 HOME HOME WHEELED MEDICAL MEDICAL ADJUSTABL EQUIPME EQUIPME E/FIXED HEIGHT COMMODE 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 FELIZ CHAIR 2 HOME HOME MOBILE OR MEDICAL MEDICAL EQUIPME EQUIPME STATIONAR Y W/FIXED ARMS RADIOLOGI 49134 [facility] UNIQUE CHOU C 2 RADIOLOGY III SOCRATES EXAMINATI ON CHEST SINGLE VIEW FRONTAL O2 CONC 1 E1390 TRAY PATRICK PORT 2 HOME HOME 85%/>02 MEDICAL MEDICAL CONC AT EQUIPME EQUIPME PRSC FLW RATE RADIOLOGI 67107 [facility] [place] EFFIE C 2 RADIOLOGY III SOCRATES EXAMINATI ON CHEST SINGLE VIEW FRONTAL COLOREC G0121 MCMENAMIN MCMENAMIN CANCR 2 IVAN IVAN SCR; COLNSCPY NOT MEET HI RISK ANES 20947 COMMONWEA BULMARO LOWER 2 LTH JR MAR INTESTINE ANESTHESI A [place] [address] [facility] SOLANO SURG 2 REGIONAL REGIONAL PATHOLOGY MEDICAL MEDICAL JINNY AGUDELOE GROSS&JASKARAN ROSCOPIC EXAM COLLECTIO 49056 [facility] SOL[facility] N VENOUS 2 REGIONAL REGIONAL BLOOD MEDICAL MEDICAL VENIPUNCT JINNY STEARNS URE ACUTE 12622 [facility] SOL[facility] HEPATITIS 2 REGIONAL REGIONAL PANEL MEDICAL MEDICAL JAMMIEE JAMMIEE SYPHILIS 08080 [facility] SOLANO TEST 2 REGIONAL REGIONAL NON-TREPO MEDICAL MEDICAL NEMAL JINNY AGUDELOE ANTIBODY QUAL ANTIBODY 13747 [facility] SOLANO HERPES 2 REGIONAL REGIONAL SMPLX MEDICAL MEDICAL TYPE 1 CENTE CENTE SCR G0145 PATHOLOGY PATHOLOGY CYTOPATH 2 & & CERV/VAG CYTOLOGY CYTOLOGY SCR LAB LAB AUTO&MNL RSCR PHYS IADNA 12709 MEDICAL MEDICAL CHLAMYDIA 2 [facility] TRACHOMAT IS AMPLIFIED PROBE TQ IADNA 05238 MEDICAL MEDICAL NEISSERIA 2 [facility] GONORRHOE AE AMPLIFIED PROBE TQ IADNA NOS 95804 MEDICAL MEDICAL 2 DIAGNOSTI DIAGNOSTI AMPLIFIED C [facility] PROBE TQ EACH ORGANISM IADNA 02789 MEDICAL MEDICAL CAIT 2 DIAGNOSTI DIAGNOSTI SPECIES [facility] AMPLIFIED PROBE TQ IADNA 32111 MEDICAL MEDICAL GARDNEREL 2 DIAGNOSTI DIAGNOSTI LA [facility] VAGINALIS AMPLIFIED PROBE TQ NJX 95813 HOLLIE NORMAN DX/THER 2 HECON EVERETT MD [facility] EPIDURAL/ SUBARACH LUMBAR/SA CRAL INJECTION J1040 HOLLIE NORMAN 2 ALYSHA PEARSON MD [facility] DNISOLONE ACETATE 80 MG ORTHOTIC 18921 HOLLIE NORMAN MGMT&YASIR 2 HEILIG [place] UXTR [facility] LXTR&/TRN K EA 15 INJECTION J3302 HOLLIE BUSH GRE 2 ALYSHA DUNCAN MD [facility] LONE DIACETATE PER 5 MG ARTHROCEN 55722 HOLLIE NORMAN TESIS 2 HEILIG ASPIR&/IN [facility] J MAJOR JT/BURSA W/O US RADEX 87909 HOLLIE NORMAN SPINE 2 HEILIG LUMBOSACR [facility] AL 2/[address] [place] [address] [facility] [place] MICHAEL ABDOMEN & 1 RADIOLOGY ZEKE PELVIS W/O CONTRAST MATERIAL ARTHROCEN 18518 HOLLIE NORMAN TESIS 1 HEILIG ASPIR&/IN [facility] J MAJOR JT/BURSA W/O US INJECTION J3302 HOLLIE BUSH GRE 1 ALYSHA DUNCAN MD [facility] LONE DIACETATE PER 5 MG RADEX HIP 16521 HOLLIE BUSH GRE 1 ALYSHA UNILATERA [facility] L COMPLETE MINIMUM 2 VIEWS Encounters Encounter Start End Date Code Location Performer Type Date OFFICE 35979 [facility] 7 7 ORTHOPEDI T VISIT C 15 ASSOCIAT MINUTES OFFICE 92503 [facility] DIAZ OUTPATIEN 7 7 ORTHOPEDI T VISIT C 15 ASSOCIAT MINUT[address] EMERGENCY 80536 [facility] DEPT 7 7 TIFF VISIT EMERGENCY HIGH SERVI SEVERITY& THREAT [facility] [place] [place] 7 7 [facility] RUSS Song 7 [facility] OUTJOINT VENTURE [facility] RUSS Song 7 [facility] 28495 [facility] 7 7 HEALTH OF T VISIT 15 [place] MINUTES [facility] RUSS Song 7 [facility] OUTPATI MEDICAL T CENTE OFFICE 07919 VALENTINO JORDANK OUTPATIEN 7 7 I I T VISIT 25 MINUTES OFFICE 13913 SHRAVAN MIN OUTPATIEN 6 6 ORTHOPEDI T VISIT C 25 ASSOCIAT MINUTES OFFICE 88399 NIKKIK NIKKIK OUTPATIEN 6 6 I JUSTIN I JUSTIN T VISIT 15 MINUTES EMERGENCY 49612 [facility] 6 6 [facility] EMERGENCY T VISIT PHYS MODERATE SEVERITY [facility] RUSS - 6 6 [facility] 36199 [facility] 6 6 [facility] MEDICAL T VISIT CENTE LIMITED/M INOR PROB EMERGENCY 44097 [facility] 6 6 [facility] T VISIT HIGH/URGE NT SEVERITY [facility] R[facility] [place] 6 6 [facility] T OFFICE 60945 NIKKIK NIKKIK OUTPATIEN 6 6 I JUSTIN I JUSTIN T VISIT 25 MINUTES OFFICE 72048 NIKKIK MOGMANISHVSK OUTPATIEN 6 6 I JUSTIN I JUSTIN T VISIT 25 MINUTES OFFICE 57073 [facility] OUTPATIEN 6 6 ORTHOPEDI T VISIT C 15 ASSOCIAT MINUTES OFFICE 06629 KATIE HUSSEIN II OUTPATIEN [address] [facility] SLEEP JOSHUA T NEW 30 AND REHA MINUTES HOSPITAL RUSS - 6 6 [facility] MEDICAL T CENTE EMERGENCY 88082 [facility] DEPT 6 6 REGIONAL VISIT MEDICAL HIGH CENTE SEVERITY& THREAT FUNCJ OFFICE 70544 SHRAVAN NORMAN OUTPATIEN 6 6 ORTHOPEDI T VISIT C 15 ASSOCIAT MINUTES HOSPITAL [facility] [place] 6 6 REGIONAL OUTPATIEN MEDICAL T CENTE OFFICE 59534 KANCHAN PERSON OUTPATIEN 6 6 T VISIT 25 MINUTES OFFICE 33366 SHRAVAN MIN OUTPATIEN 6 6 ORTHOPEDI T VISIT C 25 ASSOCIAT MINUTES HOSPITAL R[facility] - 6 6 [facility] RUSS - 6 6 [facility] MED[facility] T [facility] RUSS - 6 6 REGIONAL OUTPATIEN MEDICAL [facility] EMERGENCY 68573 RUSS 6 6 REGIONAL DEPARTMEN MEDICAL T VISIT [facility] RUSS - 6 6 [facility] T [facility] OFFICE 27694 [facility] X[facility] 6 6 REGIONAL T VISIT PHYSICIAN 25 PRA MINUTES EMERGENCY 70369 TRINH JORGE 5 5 TIFF WHI DEPARTMEN EMERGENCY T VISIT SERVI HIGH/URGE NT SEVERITY [facility] RUSS - 5 5 [facility] OFFICE 06025 [facility] 5 CLINIC IVAN T VISIT 15 MINUTES OFFICE 50240 [facility] 5 5 CLINIC IVAN T NEW 45 MINUTES HOSPITAL RUSS - 5 5 [facility] MEDICAL [facility] RUSS - 5 5 [facility] OFFICE 76694 KANCHAN PERSON OUTPATIEN 5 5 T VISIT 25 MINUTES EMERGENCY 19560 TRINH HERR DEPT 5 5 TIFF VISIT EMERGENCY HIGH PHYS SEVERITY& THREAT [facility] RUSS - 4 4 [facility]ICAL [facility] RUSS - 4 4 [facility] OFFICE 85077 R[facility] SANDERSON [facility] 4 4 REGIONAL T VISIT PHYSICIAN 15 PRA MINUTES OFFICE 23707 [facility] 4 REGIONAL T VISIT PHYSICIAN 15 PRA MINUTES HOSPITAL RUSS - 4 4 [facility] MEDICAL T CENTE EMERGENCY 58052 [facility] 4 4 TIFF JASKARAN DEPARTMEN EMERGENCY T VISIT SERVI HIGH/URGE NT SEVERITY [facility] - [facility] 4 4 [facility]AL [facility]ICAL [facility]ENT[facility] EMERGENCY 32614 [facility] B[facility] TAP[facility] 4 4 TIFF DEPARTMEN EMERGENCY T VISIT PHYS HIGH/URGE NT SEVERITY OFFICE 12914 ALIX DORADO 4 4 OMAR OMAR T VISIT 15 MINUTES HOSPITAL [facility] - [facility] 4 4 [facility] 80630 KANCHAN HEMPHILL RAZA [facility] 3 3 T NEW 45 MINUTES OFFICE 15604 ALIX DORADO 3 3 OMAR OMAR T VISIT 15 MINUTES HOSPITAL UNIVERSIT - 3 3 Y [facility] RUSS - 3 3 [facility] MEDICAL T CENTE OFFICE 54942 ALIX DORADO 3 3 OMAR OMAR T VISIT 15 MINUTES EMERGENCY 08330 RYAN BARNESS DEPT 3 3 EMERGENCY VISIT SERVICES HIGH SEVERITY& THREAT FUNC OFFICE 06867 [facility] 3 3 ORTHOPEDI T VISIT C 25 ASSOCIAT MINUTES HOSPITAL UN[facility]ERSIT - 3 3 Y [facility] H[facility]PITAL UN[facility]ERSIT - 3 3 Y [facility] OFFICE 80728 [facility] 3 3 Y T VISIT HOSPITAL 25 MINUTES OFFICE 47331 [facility] OMAR OMAR T VISIT 15 MINUTES OFFICE 53393 ALIX THOMSON OUTPATIEN 3 3 OMAR OMAR T VISIT 15 MINUTES OFFICE 02629 ALIX THOMSON OUTPATIEN 3 3 OMAR OMAR T VISIT 15 MINUTES OFFICE 49176 SORIN NEALLOOMDO OUTPATIEN 3 3 R OST MAN T VISIT MAZLOOMD 25 MINUTES OFFICE 44806 ALIX THOMSON OUTPATIEN 3 3 OMAR OMAR T VISIT 15 MINUTES EMERGENCY 57122 RYAN PARSONS 3 3 EMERGENCY DEPARTMEN SERVICES T VISIT HIGH/URGE NT SEVERITY OFFICE 37617 MANDOUGLASH MAZLOOMDO OUTPATIEN 3 3 R OST MAN T VISIT MAZLOOMD 15 MINUTES OFFICE 53154 PREMIER RADHA GÓMEZ OUTPATIEN 3 3 EYE CARE T VISIT [facility] 15 MINUTES EMERGENCY 08200 RYAN TAPIA 2 2 EMERGENCY DEPARTMEN SERVICES T VISIT HIGH/URGE NT SEVERITY OFFICE 37385 ALIX ALIX OUTPATIEN 2 2 OMAR OMAR T VISIT 15 MINUTES OFFICE 36730 JUAN MANUELH VALLOOMDO OUTPATIEN 2 2 R OST MAN T VISIT MAZLOOMD 25 MINUTES OFFICE 56432 DOTTIEMONICA ALIX OUTPATIEN 2 2 OMAR OMAR T VISIT 15 MINUTES OFFICE 78918 MANOOCHEH MAZLOOMDO OUTPATIEN 2 2 R OST MAN T VISIT MAZLOOMD 25 MINUTES OFFICE 45940 DOTTIEMONICA ALIX OUTPATIEN 2 2 OMAR OMAR T VISIT 15 MINUTES HOSPITAL RUSS - 2 2 REGIONAL OUTPATIEN MEDICAL T [facility] RUSS - 2 2 REGIONAL OUTPATI MEDICAL [facility] EMERGENCY 37114 RYAN CROWELL DEPT 2 2 EMERGENCY VISIT SERVICES HIGH SEVERITY& THREAT FUNCJ OFFICE 49365 ALIX THOMSON OUTPATIEN 2 2 OMAR OMAR T VISIT 15 MINUTES HOSPITAL RUSS - 2 2 [facility] OFFICE 54878 ALEXANDR STRANGE OUTPATIEN 2 2 IVAN IVAN T NEW 30 MINUTES HOSPITAL RUSS - OTHER 2 2 [facility] RUSS - 2 2 [facility] OFFICE 20741 HOLLIE NORMAN OUTPATIEN 2 2 HEILIG T VISIT [facility] 15 MINUTES OFFICE 55013 HOLLIE NORMAN OUTPATIEN 2 2 [facility]ES [facility] 79247 HOLLIE NORMAN OUTPATIEN 2 2 HEILIG T VISIT [facility] 15 MINUTES OFFICE 95982 HOLLIE NORMAN OUTPATIEN 2 2 HEILIG T VISIT [facility] 25 MINUTES OFFICE 69397 ALIX THOMSON OUTPATIEN 1 1 OMAR OMAR T VISIT 15 MINUTES OFFICE 89806 ALIX THOMSON OUTPATIEN 1 1 OMAR OMAR T VISIT 15 MINUTES OFFICE 65553 DORON LANDRY JR OUTPATIEN 1 1 [facility] 20 HOSPITAL MINUTES P OFFICE 41050 ALIX THOMSON OUTPATIEN 1 1 OMAR OMAR T VISIT 15 MINUTES EMERGENCY 96135 RYAN SAL DEPT 1 1 EMERGENCY SCO VISIT SERVICES HIGH SEVERITY& THREAT FUN OFFICE 96720 HOLLIE NORMAN OUTPATIEN 1 1 HEILIG T NEW 45 PLLC MINUTES OFFICE 31087 ALIX THOMSON OUTPATIEN 0 0 OMAR OMAR T VISIT 15 MINUTES OFFICE 73563 ALIX LOMELIPATIEN 0 0 OMAR OMAR T VISIT 15 MINUTES OFFICE 36869 ALIX THOMSON OUTPATI 0 0 BEENA Hernadez T VISIT 15 MINUTES EMERGENCY 19060 RUSS 0 0 [facility] MEDICAL T VISIT [facility] LANIER RUSS - 0 0 [facility]
--- OUTSIDE RECORDS SUMMARY | 2016-12-18 18:42 | External Medical Summary Rpt | CCD ---
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 MEDICAL QUAL/SEMI CENTE CENTE QUAL MULTIPLE STEP COLLECTIO 88823 [facility] SOL[facility]O N VENOUS 5 REGIONAL REGIONAL BLOOD MEDICAL MEDICAL [place] [address] [facility] TANOUS, SURG 5 JR EDW PATHOLOGY PATHOLOGY ASSOCIAT GROSS&JASKARAN ROSCOPIC EXAM SPECIAL 67628 [facility] TANOUS, STAIN 5 JR EDW GROUP 1 PATHOLOGY MICROORGA ASSOCIAT NISMS I&R SPCL STN 86584 [facility] TANOUS, 2 I&R 5 JR EDW EXCPT PATHOLOGY MICROORG/ ASSOCIAT ENZYME/IM CYT COLONOSCO 73076 [facility] CERNAMIN PY 5 CLINIC IVAN W/BIOPSY SINGLE/MU LTIPLE EGD 80079 [facility] CLARKENAMIN TRANSORAL 5 CLINIC IVAN BIOPSY SINGLE/MU LTIPLE ANES 84091 [facility] TERRY LOWER 5 LTH DICK INTESTINE ANESTHESI A PSC ENDOSCOPY DISTAL DUODENUM COLLECTIO 62743 [facility] SOLAN[facility] N VENOUS 5 REGIONAL REGIONAL BLOOD MEDICAL MEDICAL VENIPUNCT [facility] [place] [address] R[facility] SOLANO GAMMAGLOB 5 REGIONAL REGIONAL ULIN IGA MEDICAL MEDICAL IGD IGG [facility] IGM EACH BLOOD 41748 [facility] SOLANO COUNT 5 REGIONAL REGIONAL COMPLETE MEDICAL MEDICAL AUTO&AUTO [facility] DIFRNTL WBC RADIOLOGI 18637 [facility] SOLANO C EXAM 5 REGIONAL REGIONAL CHEST 2 MEDICAL MEDICAL VIEWS [facility] FRONTAL&L ATERAL COMPREHEN 76706 [facility] SOLANO SIVE 5 REGIONAL REGIONAL METABOLIC MEDICAL MEDICAL PANEL [facility] [place] [address] R[facility] SOLANO MULT STEP 5 REGIONAL REGIONAL METHOD MEDICAL MEDICAL NOS EACH [facility] ORGANISM CUL BACT 32764 [facility] SOL[facility] STOOL 5 REGIONAL REGIONAL AEROBIC MEDICAL MEDICAL ADDL [facility] PATHOGENS &[place] [address] R[facility] SOLANO LIPASE 5 REGIONAL REGIONAL MEDICAL MEDICAL [facility] [place] [address] RUSS SOLANO CLOSTRIDI 5 REGIONAL REGIONAL UM MEDICAL MEDICAL DIFFICILE [facility] TOXIN ANESTHESI 59549 [facility] KAYLEN A EYE 5 LTH CADENCE LENS ANESTHESI SURGERY A PSC CATARACT 87500 KANCHAN RAZA KANCHAN RAZA REMOVAL 5 INSERTION OF LENS ECG 08735 RUSS KUVLIEV ROUTINE 5 REGIONAL YURY ECG MEDICAL W/LEAST CENTE 12 LDS I&R ONLY POST-ADEOLA 84945 KANCHAN PERSON RACT 5 LASER SURGERY OPH BMTRY 92848 KANCHAN PERSON US 5 ECHOGRAPY A-SCAN IO LENS PWR GUY PRTBLE E0431 [facility] GASEOUS 5 INC INC O2 SYS RENT; FLWMTR HUMIDFR&M ASK O2 CONC 1 E1390 [facility] DEL PORT 5 INC INC 85%/>02 CONC AT PRSC FLW RATE O2 CONC 1 E1390 [facility] DEL PORT 5 INC INC 85%/>02 CONC AT PRSC FLW RATE PRTBLE E0431 [facility] GASEOUS 5 INC INC O2 SYS RENT; FLWMTR HUMIDFR&M ASK HOSP[facility] 46751 [facility] DISCHARGE 5 DAY MANAGEMEN T 30 MIN/< INITIAL 51799 [facility] DAVE [facility] HOSPITAL 5 CARE/DAY 70 MINUTES PRTBLE E0431 [facility] GASEOUS 5 INC INC O2 SYS RENT; FLWMTR HUMIDFR&M ASK O2 CONC 1 E1390 [facility] DEL PORT 5 INC INC 85%/>02 CONC AT PRSC FLW RATE US SOFT 36270 RUSS RUSS TISSUE 4 REGIONAL REGIONAL HEAD & MEDICAL MEDICAL NECK REAL CENTE CENTE TIME IMGE DOCM PRTBLE E0431 [facility] 4 INC INC O2 SYS RENT; FLWMTR HUMIDFR&M ASK O2 CONC 1 E1390 [facility] DEL PORT 4 INC INC 85%/>02 CONC AT PRSC FLW RATE O2 CONC 1 E1390 [facility] PORT 4 INC INC 85%/>02 CONC AT PRSC FLW RATE PRTBLE E0431 [facility] GASEOUS 4 INC INC O2 SYS RENT; FLWMTR HUMIDFR&M ASK DUPLEX 36757 RUSS RUSS SCAN 4 REGIONAL REGIONAL EXTRACRAN MEDICAL MEDICAL IAL ART CENTE CENTE COMPL BI STUDY [place] LOWER [address] [facility] [place] MARIO MAT EXTREMITY 4 RADIOLOGY W/O CONTRAST MATERIAL CT LUMBAR 59497 [facility] [place] SPINE 4 RADIOLOGY [place] IV ALL W/[place] [address] [facility] [place] HEAD/BRAI 4 RADIOLOGY LD IV ALL N W/O CONTRAST MATERIAL RADEX 02801 [facility] [place] MAT SHOULDER 4 RADIOLOGY [...] INHALATIO N RX; PER 30 DAYS LIPID 74520 [facility] SOL[facility] PANEL 4 [facility] MEDICAL MEDICAL [facility] JINNY COMPREHEN 72296 [facility] MED[facility] PANEL JINNY STEARNS PRTBLE E0431 [facility] GASEOUS 4 INC INC O2 SYS RENT; FLWMTR HUMIDFR&M ASK O2 CONC 1 E1390 [facility] DEL PORT 4 INC INC 85%/>02 CONC AT PRSC FLW RATE CRITICAL [address] [place] [address] TIFF RYA ILL/INJUR EMERGENCY ED SERVI PATIENT INIT 30-74 MIN AMB A0427 [facility] SERVICE 4 R FIRE R FIRE [facility] EMERGENCY TRANSPORT LEVEL 1 GROUND A0425 [facility] R FIRE R FIRE PER EMS EMS STATUTE [facility] 96[address] [facility] DISCHARGE 4 DAY MANAGEMEN T 30 MIN/< SBSQ 60392 [facility] 4 CARE/DAY 25 MINUTES INITIAL 78637 [facility] 4 CARE/DAY 50 MINUTES CRITICAL 93194 [place] [address] TIFF RYA ILL/INJUR EMERGENCY ED SERVI PATIENT INIT 30-74 MIN RADIOLOGI 28394 [facility]OUND[facility] BROWN MAR C 4 N EXAMINATI RADIOLOGY ON CHEST GROUP P [place] FRONTAL ECG 54438 [facility] ROUTINE 4 TIFF RYA ECG EMERGENCY W/LEAST [...] DME U DOSE 1 MG PRTBLE E0431 [facility] GASEOUS 4 INC INC O2 SYS RENT; FLWMTR HUMIDFR&M ASK O2 CONC 1 E1390 [facility] DEL PORT 4 INC INC 85%/>02 CONC AT PRSC FLW RATE O2 CONC 1 E1390 [facility] PORT 4 INC INC 85%/>02 CONC AT PRSC FLW RATE PRTBLE E0431 [facility] GASEOUS 4 INC INC O2 [...] DOSE 15 MG O2 CONC 1 E1390 [facility] DEL PORT 4 INC INC 85%/>02 CONC AT PRSC FLW RATE PRTBLE E0431 [facility] GASEOUS 4 INC INC O2 SYS RENT; FLWMTR [place] [address] [facility] [facility] THYROID 4 REGIONAL REGIONAL STIMULATI MEDICAL MEDICAL NG CENTE CENTE HORMONE TSH COMPREHEN 18668 [facility] SOLANO SIVE 4 REGIONAL REGIONAL METABOLIC MEDICAL MEDICAL PANEL CENTE CENTE LIPID 34808 RUSS SOLANO PANEL 4 REGIONAL REGIONAL MEDICAL MEDICAL CENTE CENTE BLOOD 33622 RUSS RUSS COUNT 4 [facility] SMEAR MEDICAL MEDICAL MCRSCP JINNY STEARNS W/MNL DIFRNTL WBC COUNT BLOOD 99542 RUSS RUSS COUNT 4 [facility] COMPLETE MEDICAL MEDICAL AUTOMATED JINNY STEARNS ARFORMOTE J7605 RELIANT RELIANT ROL INHAL 4 PHARMACY PHARMACY JOHN SERVICES SERVICES NONCOMP UNIT DOSE 15 MG ALBUTEROL J7613 RELIANT RELIANT INHAL 4 PHARMACY PHARMACY NON-CP SERVICES SERVICES PROD THRU DME U DOSE 1 MG ADMN SET A7005 [facility] W/SM VOL 4 INC INC NONFILTR NEBULIZR NON-DISPB L PHRM Q0513 RELIANT RELIANT DISPENSIN 4 PHARMACY PHARMACY G FEE SERVICES SERVICES INHALATIO N RX; PER 30 DAYS PRTBLE E0431 [facility] GASEOUS 4 INC INC O2 SYS RENT; FLWMTR HUMIDFR&M ASK O2 CONC [address] [facility] 4 INC INC 85%/>02 CONC AT PRSC [...] DME U DOSE 1 MG PRTBLE E0431 [facility] GASEOUS 4 INC INC O2 SYS RENT; FLWMTR HUMIDFR&M ASK O2 CONC 1 E1390 [facility] DEL PORT 4 INC INC 85%/>02 CONC [address] PRSC [place]W [place] CT LUMBAR 75319 [facility] [place] HEATH JAM SPINE 4 RADIOLOGY W/O CONTRAST MATERIAL O2 CONC 1 E1390 [facility] DEL PORT 4 INC INC 85%/>02 CONC AT PRSC FLW RATE PRTBLE E0431 [facility] GASEOUS 4 INC INC O2 SYS RENT; FLWMTR HUMIDFR&M ASK PRTBLE E0431 [facility] GASEOUS 4 INC INC O2 SYS RENT; FLWMTR HUMIDFR&M ASK O2 CONC 1 E1390 [facility] DEL PORT 4 INC INC 85%/>02 CONC AT PRSC FLW RATE O2 CONC 1 E1390 [facility] DEL PORT 4 INC INC 85%/>02 CONC AT PRSC FLW RATE PRTBLE E0431 [facility] GASEOUS 4 INC INC O2 SYS RENT; FLWMTR HUMIDFR&M ASK NEBULIZER E0570 [facility] WITH 4 INC INC COMPRESSO R CATARACT 03990 KANCHAN RAZA KANCHAN RAZA REMOVAL 4 INSERTION OF LENS ANESTHESI 42177 [facility] HULZEBOS A EYE 4 LTH RYA LENS ANESTHESI SURGERY A PSC ECG 16829 R[facility] SEALS AGUSTÍN ROUTINE 4 REGIONAL ECG MEDICAL W/LEAST CENTE 12 LDS I&R ONLY O2 CONC 1 E1390 [facility] PORT 4 INC INC 85%/>02 CONC AT PRSC FLW RATE PRTBLE E0431 [facility] GASEOUS 4 INC INC O2 SYS RENT; FLWMTR HUMIDFR&M ASK BASIC 48120 [facility] METABOLIC 4 REGIONAL REGIONAL PANEL MEDICAL MEDICAL CALCIUM CENTE JAMMIEE TOTAL COLLECTIO 07434 [facility] SOL[facility]O N VENOUS 4 REGIONAL REGIONAL BLOOD MEDICAL MEDICAL VENIPUNCT CENTE JAMMIEE URE BLOOD 00674 RUSS RUSS COUNT 4 REGIONAL REGIONAL COMPLETE MEDICAL MEDICAL AUTO&AUTO CENTE CENTE DIFRNTL WBC NEBULIZER E0570 [facility] WITH 3 INC INC COMPRESSO R OPH BMTRY 30819 KANCHAN RAZA KANCHAN RAZA US 3 ECHOGRAPY A-SCAN IO LENS PWR GUY TENS E0730 EMPI INC EMPI INC DEVICE 3 4/MORE LEADS MULTI NERVE STIMULATI ON O2 CONC 1 E1390 [facility] DEL PORT 3 INC INC 85%/>02 CONC AT PRSC FLW RATE PRTBLE E0431 [facility] GASEOUS 3 INC INC O2 SYS RENT; FLWMTR HUMIDFR&M ASK PHRM Q0513 RELIANT RELIANT DISPENSIN 3 PHARMACY PHARMACY G FEE SERVICES SERVICES INHALATIO N RX; PER 30 DAYS ADMN SET A7003 [facility] SM VOL 3 INC INC NONFILTR PNEUMAT NEBULIZR DISPBL ALBUTEROL J7613 RELIANT RELIANT INHAL 3 PHARMACY PHARMACY NON-CP SERVICES SERVICES PROD THRU DME U DOSE 1 MG RADEX ABD 72395 [facility] [place] MCQUAIDE COMPL 3 RADIOLOGY CLARA AQT ABD W/S/E/D VIEWS 1 VIEW CH ARFORMOTE J7605 RELIANT RELIANT ROL INHAL 3 PHARMACY PHARMACY JOHN SERVICES SERVICES NONCOMP UNIT DOSE 15 MG NEBULIZER E0570 [facility] WITH 3 INC INC COMPRESSO R ARFORMOTE J7605 RELIANT RELIANT ROL INHAL 3 PHARMACY PHARMACY JOHN SERVICES SERVICES NONCOMP UNIT DOSE 15 MG TENS E0730 EMPI INC EMPI INC DEVICE 3 4/MORE LEADS MULTI NERVE STIMULATI ON THERAPEUT 28049 [place] ANASTACIA IC PX 1/> 3 ORTHOPEDI JACKIE AREAS C EACH 15 ASSOCIAT MIN EXERCISES ALBUTEROL J7613 RELIANT RELIANT INHAL 3 PHARMACY PHARMACY NON-CP SERVICES SERVICES PROD THRU DME U DOSE 1 MG SELF-CARE 03525 [place] ANASTACIA /HOME 3 ORTHOPEDI JACKIE MGMT C TRAINING ASSOCIAT EACH 15 MINUTES PHRM Q0513 RELIANT RELIANT DISPENSIN 3 PHARMACY PHARMACY G FEE SERVICES SERVICES INHALATIO N RX; PER 30 DAYS PRTBLE E0431 [facility] GASEOUS 3 INC INC O2 SYS RENT; FLWMTR HUMIDFR&M ASK E-STIM G0283 [facility]/> AREAS 3 ORTHOPEDI OTH THAN C WND CARE ASSOCIAT PART TX PLAN THERAPEUT 76647 [place] RACHELLE GRE IC PX 1/> 3 ORTHOPEDI AREAS C EACH 15 ASSOCIAT MIN EXERCISES O2 CONC 1 E1390 [facility] DEL PORT 3 INC INC 85%/>02 CONC AT PRSC FLW RATE THERAPEUT 03941 SHRAVAN GALAVIZ IC PX 1/> 3 ORTHOPEDI JACKIE AREAS C EACH 15 ASSOCIAT MIN EXERCISES E-STIM G0283 SHRAVAN GALAVIZ 1/> AREAS 3 ORTHOPEDI JACKIE OTH THAN C WND CARE ASSOCIAT PART TX PLAN E-STIM G0283 SHRAVAN GALAVIZ 1/> AREAS 3 ORTHOPEDI JACKIE OTH THAN C WND CARE ASSOCIAT PART TX PLAN PHYSICAL 56861 SHRAVAN GALAVIZ THERAPY 3 ORTHOPEDI JACKEI EVALUATIO C N ASSOCIAT THERAPEUT 69526 SHRAVAN GALAVIZ IC PX 1/> 3 ORTHOPEDI JACKIE AREAS C EACH 15 ASSOCIAT MIN EXERCISES ALBUTEROL J7613 RELIANT RELIANT INHAL 3 PHARMACY PHARMACY NON-CP SERVICES SERVICES PROD THRU DME U DOSE 1 MG NEBULIZER E0570 [facility] WITH 3 INC INC COMPRESSO R ADMN SET A7005 [facility] W/SM VOL 3 INC INC NONFILTR NEBULIZR NON-DISPB L PHRM Q0513 RELIANT RELIANT DISPENSIN 3 PHARMACY PHARMACY G FEE SERVICES SERVICES INHALATIO N RX; PER 30 DAYS PRTBLE E0431 [facility] GASEOUS 3 INC INC O2 SYS RENT; FLWMTR HUMIDFR&M ASK O2 CONC 1 E1390 [facility] DEL PORT 3 INC INC 85%/>02 CONC AT PRS FLW RATE RADEX 44174 [place] BEATRIZ SPINE 3 MEDICAL FRA LUMBOSACR SERV AL FOUNDATIO MINIMUM 4 VIEWS MRI 40345 RUSS RUSS SPINAL 3 REGIONAL REGIONAL CANAL MEDICAL MEDICAL CERVICAL CENTE CENTE W/O CONTRAST MATRL ALBUTEROL J7613 RELIANT RELIANT INHAL 3 PHARMACY PHARMACY NON-CP SERVICES SERVICES PROD THRU DME U DOSE 1 MG PHRM Q0513 RELIANT RELIANT DISPENSIN 3 PHARMACY PHARMACY G FEE SERVICES SERVICES INHALATIO N RX; PER 30 DAYS NEBULIZER E0570 [facility] WITH 3 INC INC COMPRESSO R PRTBLE E0431 [facility] GASEOUS 3 INC INC O2 SYS RENT; FLWMTR HUMIDFR&M ASK O2 CONC 1 E1390 [facility] DEL PORT 3 INC INC 85%/>02 CONC AT [facility] FLW RATE PHRM Q0513 RELIANT RELIANT DISPENSIN 3 PHARMACY PHARMACY G FEE SERVICES SERVICES INHALATIO N RX; PER 30 DAYS ALBUTEROL J7613 RELIANT RELIANT INHAL 3 PHARMACY PHARMACY NON-CP SERVICES SERVICES PROD THRU DME U DOSE 1 MG INITIAL [address] MACK CARE/DAY PULMONARY 70 M MINUTES SBSQ 90068 MEANS [place] [address] ADULT RAE CARE/DAY PRIMARY 35 CARE CLI MINUTES SBSQ 45850 MEANS [facility] 3 ADULT RAE CARE/DAY PRIMARY 35 CARE CLI MINUTES SBSQ 58454 MEANS [facility] 3 ADULT RAE CARE/DAY PRIMARY 35 CARE CLI MINUTES SBSQ 76536 MEANS [facility] 3 ADULT RAE CARE/DAY PRIMARY 35 CARE CLI MINUTES SBSQ 12917 MEANS [facility] 3 ADULT RAE CARE/DAY PRIMARY 35 CARE CLI MINUTES ECG 20256 RUSS BRAR ROUTINE 3 REGIONAL YURY ECG MEDICAL W/LEAST CENTE 12 LDS I&R ONLY CT THORAX 16982 [facility] [place] W/O 3 RADIOLOGY CLARA CONTRAST MATERIAL RADIOLOGI 47343 [facility] [place] C EXAM 3 RADIOLOGY CLARA CHEST 2 VIEWS FRONTAL&L ATERAL NEBULIZER E0570 [facility] WITH 3 INC INC COMPRESSO R PRTBLE E0431 [facility] GASEOUS 3 INC INC O2 SYS RENT; FLWMTR HUMIDFR&M ASK O2 CONC 1 E1390 [facility] PORT 3 INC INC 85%/>02 CONC AT [facility] FLW RATE PHRM Q0513 RELIANT RELIANT DISPENSIN 3 PHARMACY PHARMACY G FEE SERVICES SERVICES INHALATIO N RX; PER 30 DAYS ALBUTEROL J7613 RELIANT RELIANT INHAL 3 PHARMACY PHARMACY NON-CP SERVICES SERVICES PROD THRU DME U DOSE 1 MG MRI 54554 [place] ESCOTT SPINAL 3 MEDICAL EDW CANAL SERV LUMBAR FOUNDATIO W/O CONTRAST MATERIAL CONTINUOU E0601 FERREIRA FERREIRA S 3 MEDICAL MEDICAL POSITIVE EQUIPMENT EQUIPMENT AIRWAY PRESSURE DEVICE NEBULIZER E0570 [facility] WITH 3 INC INC COMPRESSO R PRTBLE E0431 [facility] GASEOUS 3 INC INC O2 SYS RENT; FLWMTR HUMIDFR&M ASK O2 CONC 1 E1390 [facility] DEL PORT 3 INC INC [...] EQUIPMENT EQUIPMENT AIRWAY PRESSURE DEVICE NEBULIZER E0570 [facility] WITH 3 INC INC COMPRESSO R ADMN SET A7003 [facility] SM VOL 3 INC INC NONFILTR PNEUMAT NEBULIZR DISPBL ALBUTEROL J7613 RELIANT RELIANT INHAL 3 PHARMACY PHARMACY NON-CP SERVICES SERVICES PROD THRU DME U DOSE 1 MG PHRM Q0513 RELIANT RELIANT DISPENSIN 3 PHARMACY PHARMACY G FEE SERVICES SERVICES INHALATIO N RX; PER 30 DAYS PRTBLE E0431 [facility] GASEOUS 3 INC INC O2 SYS RENT; FLWMTR HUMIDFR&M ASK O2 CONC 1 E1390 [facility] DEL PORT 3 INC INC 85%/>02 CONC AT PRSC FLW RATE ECG 25524 [place] GREG ZECHARIAH ROUTINE 3 MEDICAL ECG SERV W/LEAST FOUNDATIO 12 LDS I&[place] [address] [place] RASLAU HEAD/BRAI 3 MEDICAL FLA N W/O SERV CONTRAST FOUNDATIO MATERIAL HUMDIFIR E0562 FERREIRA FERREIRA HEATED 3 MEDICAL MEDICAL USED EQUIPMENT EQUIPMENT W/POS ARWAY PRESSURE DEVICE CONTINUOU E0601 FERREIRA FERREIRA S 3 MEDICAL MEDICAL POSITIVE EQUIPMENT EQUIPMENT AIRWAY PRESSURE DEVICE NEBULIZER E0570 [facility] WITH 3 INC INC COMPRESSO R PRTBLE E0431 [facility] GASEOUS 3 INC INC O2 SYS RENT; FLWMTR HUMIDFR&M ASK O2 CONC 1 E1390 [facility] DEL PORT 3 INC INC [...] EQUIPMENT EQUIPMENT AIRWAY PRESSURE DEVICE NEBULIZER E0570 [facility] WITH 3 INC INC COMPRESSO R PRTBLE E0431 [facility] GASEOUS 3 INC INC O2 SYS RENT; FLWMTR HUMIDFR&M ASK O2 CONC [address] [facility] 3 INC INC 85%/>02 CONC AT PRSC FLW RATE PHRM Q0513 RELIANT RELIANT DISPENSIN 3 PHARMACY PHARMACY G FEE SERVICES SERVICES INHALATIO N RX; PER 30 DAYS CONTINUOU E0601 FERREIRA FERREIRA S 3 MEDICAL MEDICAL POSITIVE EQUIPMENT EQUIPMENT AIRWAY PRESSURE DEVICE ALBUTEROL J7613 RELIANT RELIANT INHAL 3 PHARMACY PHARMACY NON-CP SERVICES SERVICES PROD THRU DME U DOSE 1 MG NEBULIZER E0570 [facility] WITH 3 INC INC COMPRESSO R PRTBLE E0431 [facility] GASEOUS 3 INC INC O2 SYS RENT; FLWMTR HUMIDFR&M ASK O2 CONC 1 E1390 [facility] DEL PORT 3 INC INC 85%/>02 CONC AT PRSC FLW RATE HUMDIFIR E0562 FERREIRA FERREIRA HEATED 3 MEDICAL MEDICAL USED EQUIPMENT EQUIPMENT W/POS ARWAY PRESSURE DEVICE CONTINUOU E0601 FERERIRA FERREIRA S 3 MEDICAL MEDICAL POSITIVE EQUIPMENT EQUIPMENT AIRWAY PRESSURE DEVICE NEBULIZER E0570 [facility] WITH 3 INC INC COMPRESSO R SPECIAL 84006 DO LEI STAIN 3 PATHOLOGY PATHOLOGY GROUP 1 SERVICES SERVICES MICROORGA NISMS I&R CULTURE 45015 DO LEI FUNGI 3 PATHOLOGY PATHOLOGY DEFINITIV SERVICES SERVICES [place] [address] DO LEI SURG 3 PATHOLOGY PATHOLOGY PATHOLOGY SERVICES SERVICES GROSS&JASKARAN ROSCOPIC EXAM CUL FNGI 18141 DO LEI MOLD/YEAS 3 PATHOLOGY PATHOLOGY T PRSMPTV SERVICES SERVICES ID SKN HAIR/NAIL PHRM Q0513 RELIANT RELIANT DISPENSIN 3 PHARMACY PHARMACY G FEE SERVICES SERVICES INHALATIO N RX; PER 30 DAYS ADMN SET A7005 [facility] W/SM VOL 3 INC INC NONFILTR NEBULIZR NON-DISPB L ALBUTEROL J7613 RELIANT RELIANT INHAL 3 PHARMACY PHARMACY NON-CP SERVICES SERVICES PROD THRU DME U DOSE 1 MG PRTBLE E0431 [facility] GASEOUS 3 INC INC O2 SYS RENT; FLWMTR HUMIDFR&M ASK O2 CONC 1 E1390 [facility] DEL PORT 3 INC INC 85%/>02 [facility] AT [facility] FLW RATE INJECTION J3301 [facility] MAZLOOMDO 3 R OST RAZA TRIAMCINO MAZLOOMD LONE ACETONIDE NOS 10 MG NJX 88866 [facility] MAZLOOMDO DX/THER 3 R OST RAZA AGT PVRT MAZLOOMD FACET JT LMBR/SAC 1 LEVEL NJX 89949 [facility] MAZLOOMDO DX/THER 3 R OST RAZA AGT PVRT MAZLOOMD FACET JT LMBR/SAC 2ND LEVEL CONTINUOU E0601 FERREIRA FERREIRA S 3 MEDICAL MEDICAL POSITIVE EQUIPMENT EQUIPMENT AIRWAY PRESSURE DEVICE HUMDIFIR E0562 FERREIRA FERREIRA HEATED 3 MEDICAL MEDICAL USED EQUIPMENT EQUIPMENT W/POS ARWAY PRESSURE DEVICE NEBULIZER E0570 [facility] WITH 3 INC INC COMPRESSO R ADMN SET A7003 [facility] SM VOL 3 INC INC NONFILTR PNEUMAT NEBULIZR DISPBL PHARM G0333 RELIANT RELIANT DISPEN 3 PHARMACY PHARMACY FEE INHAL SERVICES SERVICES RX; INITIAL 30-DAY SUPPLY ALBUTEROL J7613 RELIANT RELIANT INHAL 3 PHARMACY PHARMACY NON-CP SERVICES SERVICES PROD THRU DME U DOSE 1 MG PRTBLE E0431 [facility] GASEOUS 3 INC INC O2 SYS RENT; FLWMTR HUMIDFR&M ASK O2 CONC 1 E1390 [facility] DEL PORT 3 INC INC 85%/>02 [facility] AT [facility] FLW RATE RADIOLOGI 69388 [facility] [place] PULIDO C 3 RADIOLOGY CRISTIAN EXAMINATI ON CHEST SINGLE VIEW FRONTAL ECG 75675 [facility] ROUTINE 3 EMERGENCY ECG SERVICES W/LEAST 12 LDS I&R ONLY GROUND A0425 [facility] MILEAGE 3 R FIRE R FIRE PER EMS EMS STATUTE MILE AMB A0427 [facility] SERVICE 3 R FIRE R FIRE [facility] EMS EMERGENCY TRANSPORT LEVEL 1 RADIOLOGI 04667 [facility] [place] MCQUAIDE C EXAM 2 RADIOLOGY [...] 85%/>02 MEDICAL MEDICAL CON[facility] DET[facility]MIN[facility] 56559 PREMIER RADHA GÓMEZ TION 2 EYE CARE REFRACTIV PLLC E STATE OPHTH 14085 PREMIER RADHA GÓMEZ MEDICAL 2 EYE CARE [...] RENT; EQUIPME EQUIPME FLWMTR HUMIDFR&M ASK POLYSOM 95271 PATRICIA THEODORE THEODORE PATRICIA 6/>YRS 2 MD SLEEP CONSULTIN W/CPAP G SRV 4/> ADDL TITA ATTND POLYSOM 70976 RUSS RUSS 6/>YRS 2 REGIONAL REGIONAL SLEEP [...] EQUIPMENT W/[place] IN[place] [address] MAN[facility] MAZLOOMDO JOINT 2 R OST RAZA ARTHRGRPH MAZLOOMD Y&/ANES/S TEROID W/LENNY POLYSOM 35903 PATRICIA THEODORE THEODORE PATRICIA 6/>YRS 2 MD SLEEP 4/> CONSULTIN ADDL G SRV TITA ATTND O2 CONC 1 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 85%/>02 MEDICAL MEDICAL CONC AT EQUIPME EQUIPME PRSC FLW RATE PRTBLE E0431 [facility] FELIZ GASEOUS 2 HOME HOME O2 SYS MEDICAL MEDICAL RENT; EQUIPME EQUIPME FLWMTR HUMIDFR&M ASK POLYSOM 64534 RUSS SOLANO 6/>YRS 2 REGIONAL REGIONAL SLEEP 4/> MEDICAL MEDICAL ADDL JINNY STEARNS TITA ATTND O2 CONC 1 E1390 [facility] [place] 2 HOME HOME 85%/>02 MEDICAL MEDICAL CONC AT EQUIPME EQUIPME PRSC FLW RATE PRTBLE E0431 [facility] GASEOUS 2 HOME HOME O2 SYS MEDICAL MEDICAL RENT; EQUIPME EQUIPME FLWMTR HUMIDFR&M ASK OBSERVATI 68995 RUSS BRAR ON CARE 2 REGIONAL YURY DISCHARGE FAMILY PRACTI MANAGEMEN T ECG 06868 RUSS BRAR ROUTINE 2 REGIONAL YURY ECG FAMILY W/LEAST PRACTI 12 LDS I&R ONLY ECG 17496 RYAN CROWELL ROUTINE 2 EMERGENCY ECG SERVICES W/LEAST 12 LDS I&[place] [address] [facility] UNIQUE MOE HEAD/BRAI 2 RADIOLOGY CLARA N W/O CONTRAST MATERIAL AMB A0427 [facility] SERVICE 2 R FIRE R FIRE [facility] EMS EMERGENCY TRANSPORT LEVEL 1 RADIOLOGI 25607 [facility] UNIQUE MOE C EXAM 2 RADIOLOGY CLARA CHEST 2 VIEWS FRONTAL&L ATERAL GROUND [id number] [facility] MILEAGE 2 R FIRE R FIRE PER EMS EMS STATUTE MILE INITIAL 21965 [facility] BRAR OBSERVATI 2 REGIONAL YURY ON [...] EQUIPME EQUIPME STATIONAR Y W/FIXED ARMS RADIOLOGI 39962 [facility] UNIQUE CHOU C 2 RADIOLOGY III SOCRATES EXAMINATI ON CHEST SINGLE VIEW FRONTAL O2 CONC 1 E1390 TRAY PATRICK PORT 2 HOME HOME 85%/>02 MEDICAL MEDICAL CONC AT EQUIPME EQUIPME PRSC FLW RATE RADIOLOGI 54696 [facility] [place] EFFIE C 2 RADIOLOGY III SOCRATES EXAMINATI ON CHEST SINGLE VIEW FRONTAL COLOREC G0121 MCMENAMIN MCMENAMIN CANCR 2 IVAN IVAN SCR; COLNSCPY NOT MEET HI RISK ANES 72125 COMMONWEA BULMARO LOWER 2 LTH JR MAR INTESTINE ANESTHESI A [place] [address] [place] [facility] SURG 2 REGIONAL REGIONAL PATHOLOGY MEDICAL MEDICAL JINNY AGUDELOE GROSS&JASKARAN ROSCOPIC EXAM COLLECTIO 20232 [place] N VENOUS 2 REGIONAL REGIONAL BLOOD MEDICAL MEDICAL VENIPUNCT JINNY STEARNS URE ACUTE 03682 [place] [facility] HEPATITIS 2 REGIONAL REGIONAL PANEL MEDICAL MEDICAL JAMMIEE JAMMIEE SYPHILIS 27433 [facility] TEST 2 REGIONAL REGIONAL NON-TREPO MEDICAL MEDICAL NEMAL JINNY AGUDELOE ANTIBODY QUAL ANTIBODY 49637 [facility] HERPES 2 REGIONAL REGIONAL SMPLX MEDICAL MEDICAL TYPE 1 CENTE CENTE SCR G0145 PATHOLOGY PATHOLOGY CYTOPATH 2 & & CERV/VAG CYTOLOGY CYTOLOGY SCR LAB LAB AUTO&MNL RSCR PHYS IADNA 72366 MEDICAL MEDICAL CHLAMYDIA 2 [facility] TRACHOMAT IS AMPLIFIED PROBE TQ IADNA 70726 MEDICAL MEDICAL NEISSERIA 2 [facility] GONORRHOE AE AMPLIFIED PROBE TQ IADNA NOS 54930 MEDICAL MEDICAL 2 DIAGNOSTI DIAGNOSTI AMPLIFIED [facility] PROBE TQ EACH ORGANISM IADNA 38171 MEDICAL MEDICAL CAIT 2 DIAGNOSTI DIAGNOSTI SPECIES [facility] AMPLIFIED PROBE TQ IADNA 87064 MEDICAL MEDICAL GARDNEREL 2 DIAGNOSTI DIAGNOSTI LA [facility] VAGINALIS AMPLIFIED PROBE TQ NJX 43320 HOLLIE NORMAN DX/THER 2 HECON EVERETT MD [facility] EPIDURAL/ SUBARACH LUMBAR/SA CRAL INJECTION J1040 HOLLIE NORMAN 2 ALYSHA PEARSON MD [facility] DNISOLONE ACETATE 80 MG ORTHOTIC 39736 HOLLIE NORMAN MGMT&YASIR 2 HEILIG NJ UXTR [facility] LXTR&/TRN K EA 15 INJECTION J3302 HOLLIE BUSH GRE 2 ALYSHA DUNCAN MD [facility] LONE DIACETATE PER 5 MG ARTHROCEN 01732 HOLLIE NORMAN TESIS 2 HEILIG ASPIR&/IN [facility] J MAJOR JT/BURSA W/O US RADEX 77044 HOLLIE NORMAN SPINE 2 HEILIG LUMBOSACR [facility] AL 2/[address] [place] [address] [facility] [place] MICHAEL ABDOMEN & 1 RADIOLOGY ZEKE PELVIS W/O CONTRAST MATERIAL ARTHROCEN 47917 HOLLIE NORMAN TESIS 1 HEILIG ASPIR&/IN [facility] J MAJOR JT/BURSA W/O US INJECTION J3302 HOLLIE BUSH GRE 1 ALYSHA DUNCAN MD [facility] LONE DIACETATE PER 5 MG RADEX HIP 87333 HOLLIE BUSH GRE 1 ALYSHA UNILATERA [facility] L COMPLETE MINIMUM 2 VIEWS Encounters Encounter Start End Date Code Location Performer Type Date OFFICE 40670 [place] RICE OUTPATIEN 7 7 ORTHOPEDI T VISIT C 15 ASSOCIAT MINUTES OFFICE 10746 [place] DIAZ OUTPATIEN 7 7 ORTHOPEDI T VISIT C 15 ASSOCIAT MINUTES EMERGENCY 19192 [facility] DEPT 7 7 TIFF VISIT EMERGENCY HIGH SERVI SEVERITY& THREAT [facility] [place] 7 7 [facility] 7 [facility] Song 7 [facility] 42163 [facility] 7 7 [facility] T VISIT [address] [place] [facility] RUSS Song 7 [facility] OUTPATI MEDICAL T CENTE OFFICE 91222 VALENTINO JORDANK OUTPATIEN 7 7 I I T VISIT 25 MINUTES OFFICE 55579 SHRAVAN MIN OUTPATIEN 6 6 ORTHOPEDI T VISIT C 25 ASSOCIAT MINUTES OFFICE 75192 NIKKIK NIKKIK OUTPATIEN 6 6 I JUSTIN I JUSTIN T VISIT 15 MINUTES EMERGENCY 15199 [facility] 6 6 [facility] EMERGENCY T VISIT PHYS MODERATE SEVERITY [facility] RUSS - 6 6 [facility] EMERGENC[facility] 85035 [facility] 6 6 [facility] MEDICAL T VISIT CENTE LIMITED/M INOR PROB EMERGENCY 26544 [facility] 6 6 [facility] T VISIT HIGH/URGE NT SEVERITY [facility] [place] 6 6 [facility] T OFFICE 11567 NIKKIK NIKKIK OUTPATIEN 6 6 I JUSTIN I JUSTIN T VISIT 25 MINUTES OFFICE 54788 NIKKIK MOGMANISHVSK OUTPATIEN 6 6 I JUSTIN I JUSTIN T VISIT 25 MINUTES OFFICE 22606 [facility] OUTPATIEN 6 6 ORTHOPEDI T VISIT C 15 ASSOCIAT MINUTES OFFICE 81353 KATIE HUSSEIN II OUTPATIEN 6 6 [facility] SLEEP JOSHUA T NEW 30 AND REHA MINUTES HOSPITAL RUSS - 6 6 [facility] MEDICAL T CENTE EMERGENCY 32671 [facility] DEPT 6 6 REGIONAL VISIT MEDICAL HIGH CENTE SEVERITY& THREAT FUNCJ OFFICE 69526 SHRAVAN NORMAN OUTPATIEN 6 6 ORTHOPEDI T VISIT C 15 ASSOCIAT MINUTES HOSPITAL [facility] [place] 6 6 REGIONAL OUTPATIEN MEDICAL T CENTE OFFICE 64841 KANCHAN PERSON OUTPATIEN 6 6 T VISIT 25 MINUTES OFFICE 07836 SHRAVAN MIN OUTPATIEN 6 6 ORTHOPEDI T VISIT C 25 ASSOCIAT MINUTES HOSPITAL R[facility] - 6 6 [facility] MEDICAL T [facility] RUSS - 6 6 [facility] RUSS - 6 6 REGIONAL OUTPATIEN MEDICAL T [facility] EMERGENCY 32221 RUSS 6 6 REGIONAL DEPARTMEN MEDICAL T VISIT [facility] R[facility] - 6 6 [facility] MEDICAL T [facility] OFFICE 48626 [facility] XIAO [facility] 6 6 REGIONAL T VISIT PHYSICIAN 25 PRA MINUTES EMERGENCY 08520 TRINH JORGE 5 5 TIFF WHI DEPARTMEN EMERGENCY T VISIT SERVI HIGH/URGE NT SEVERITY [facility] RUSS - 5 5 [facility]AL [facility] MEDICAL T [facility] OFFICE 85394 [facility] 5 CLINIC IVAN T VISIT 15 MINUTES OFFICE 13207 [facility] 5 5 CLINIC IVAN T NEW 45 MINUTES HOSPITAL RUSS - 5 5 [facility] RUSS - 5 5 [facility] MEDICAL T [facility] OFFICE 22380 KANCHAN PERSON OUTPATIEN 5 5 T VISIT 25 MINUTES EMERGENCY 51672 TRINH HERR DEPT 5 5 TIFF VISIT EMERGENCY HIGH PHYS SEVERITY& THREAT [facility] RUSS - 4 4 [facility] RUSS - 4 4 [facility] MEDICAL T [facility] OFFICE 13639 [facility] SANDERSON [facility] 4 4 REGIONAL T VISIT PHYSICIAN 15 PRA MINUTES OFFICE 15363 [facility] 4 4 REGIONAL T VISIT PHYSICIAN 15 PRA MINUTES HOSPITAL R[facility] - 4 4 [facility] MEDICAL T CENTE EMERGENCY 00551 [facility] 4 4 TIFF JASKARAN DEPARTMEN EMERGENCY T VISIT SERVI HIGH/URGE NT SEVERITY [facility]OSPITAL [facility] - [facility] 4 4 [facility]AL [facility]ENT[facility] EMERGENCY 57572 [facility] BRET [facility] 4 4 TIFF DEPARTMEN EMERGENCY T VISIT PHYS HIGH/URGE NT SEVERITY OFFICE 84785 ALIX DORADO 4 4 OMAR OMAR T VISIT 15 MINUTES HOSPITAL [facility] - [facility] 4 4 [facility] OFF[facility] 41267 KANCHAN HEMPHILL RAZA [facility] 3 3 T NEW 45 MINUTES OFFICE 22580 ALIX DORADO 3 3 OMAR OMAR T VISIT 15 MINUTES HOSPITAL UNIVERSIT - 3 3 Y [facility]PITAL RUSS - 3 3 [facility] MEDICAL T CENTE OFFICE 85237 ALIX DORADO 3 3 OMAR OMAR T VISIT 15 MINUTES EMERGENCY 21864 RYAN BARNESS DEPT 3 3 EMERGENCY VISIT SERVICES HIGH SEVERITY& THREAT FUNC OFFICE 06580 [place] [facility] 3 3 ORTHOPEDI T VISIT C 25 ASSOCIAT MINUTES HOSPITAL UNIVERSIT - 3 3 Y [facility] H[facility]PITAL UNIVERSIT - 3 3 Y [facility] T OFFICE 70772 [facility] 3 3 Y T VISIT HOSPITAL 25 MINUTES OFFICE 06983 ALIX LOMELIPSYCHIATRICVIRAJ 3 3 OMAR OMAR T VISIT 15 MINUTES OFFICE 99433 ALIX THOMSON OUTPATIEN 3 3 OMAR OMAR T VISIT 15 MINUTES OFFICE 46230 ALIX THOMSON OUTPATIEN 3 3 OMAR OMAR T VISIT 15 MINUTES OFFICE 69844 SORIN NEALLOOMDO OUTPATIEN 3 3 R OST MAN T VISIT MAZLOOMD 25 MINUTES OFFICE 74172 ALIX THOMSON OUTPATIEN 3 3 OMAR OMAR T VISIT 15 MINUTES EMERGENCY 43945 RYAN PARSONS 3 3 EMERGENCY DEPARTMEN SERVICES T VISIT HIGH/URGE NT SEVERITY OFFICE 02590 MANDOUGLASH MAZLOOMDO OUTPATIEN 3 3 R OST MAN T VISIT MAZLOOMD 15 MINUTES OFFICE 14393 PREMIER RADHA GÓMEZ OUTPATIEN 3 3 EYE CARE T VISIT [facility] 15 MINUTES EMERGENCY 62234 RYAN TAPIA 2 2 EMERGENCY DEPARTMEN SERVICES T VISIT HIGH/URGE NT SEVERITY OFFICE 97287 ALIX ALIX OUTPATIEN 2 2 OMAR OMAR T VISIT 15 MINUTES OFFICE 33641 JUAN MANUELH VALLOOMDO OUTPATIEN 2 2 R OST MAN T VISIT MAZLOOMD 25 MINUTES OFFICE 60131 DOTTIEMONICA ALIX OUTPATIEN 2 2 OMAR OMAR T VISIT 15 MINUTES OFFICE 36770 MANOOCHEH MAZLOOMDO OUTPATIEN 2 2 R OST MAN T VISIT MAZLOOMD 25 MINUTES OFFICE 49057 DOTTIEMONICA ALIX OUTPATIEN 2 2 OMAR OMAR T VISIT 15 MINUTES HOSPITAL R[facility] - 2 2 REGIONAL OUTPATIEN MEDICAL T [facility] RUSS - 2 2 REGIONAL OUTPATI MEDICAL T [facility] EMERGENCY 48468 RYAN CROWELL DEPT 2 2 EMERGENCY VISIT SERVICES HIGH SEVERITY& THREAT FUNCJ OFFICE 38132 ALIX THOMSON OUTPATIEN 2 2 OMAR OMAR T VISIT 15 MINUTES HOSPITAL [facility] - 2 2 [facility] OFFICE 71942 ALEXANDR STRANGE OUTPATIEN 2 2 IVAN IVAN T NEW 30 MINUTES HOSPITAL [facility] - OTHER 2 2 [facility] RUSS - 2 2 GENERAL ACUTE HOSPITAL OFFICE 58397 HOLLIE NORMAN OUTPATIEN 2 2 HEILIG T VISIT [facility] 15 MINUTES OFFICE 65508 HOLLIE NORMAN OUTPATIEN 2 2 [facility]ES [facility] 85092 HOLLIE NORMAN OUTPATIEN 2 2 HEILIG T VISIT [facility] 15 MINUTES OFFICE 65966 HOLLIE NORMAN OUTPATIEN 2 2 HEILIG T VISIT [facility] 25 MINUTES OFFICE 23897 AILX THOMSON OUTPATIEN 1 1 OMAR OMAR T VISIT 15 MINUTES OFFICE 69629 ALIX THOMSON OUTPATIEN 1 1 OMAR OMAR T VISIT 15 MINUTES OFFICE 79556 DROON LANDRY JR OUTPATIEN 1 1 [facility] 20 HOSPITAL MINUTES P OFFICE 33464 ALIX THOMSON OUTPATIEN 1 1 OMAR OMAR T VISIT 15 MINUTES EMERGENCY 75752 RYAN SAL DEPT 1 1 EMERGENCY SCO VISIT SERVICES HIGH SEVERITY& THREAT FUN OFFICE 32451 HOLLIE NORMAN OUTPATIEN 1 1 HEILIG T NEW 45 PLLC MINUTES OFFICE 00457 ALIX THOMSON OUTPATIEN 0 0 OMAR OMAR T VISIT 15 MINUTES OFFICE 95679 ALIX LOMELIPATIEN 0 0 OMAR OMAR T VISIT 15 MINUTES OFFICE 22513 ALIX THOMSON OUTPATI 0 0 BEENA Hernadez T VISIT 15 MINUTES EMERGENCY 14364 [facility] 0 0 [facility] MEDICAL T [facility]ISIT [facility] - 0 [facility]
--- OUTSIDE RECORDS SUMMARY | 2016-12-18 18:49 | External Medical Summary Rpt | CCD ---
Author Author , ROSA Organization [facility] Address Unknown Phone [email or web address] Care Team Providers Care Lead Data Entry Operator Name Role Phone JORGE, JORGE Unavailable Unavailable [...] PATHOLOGY Unavailable Unavailable SERVICES, [facility] Unavailable Unavailable ASSOCIAT, [facility] ANASTACIA JASKARAN, ANASTACIA Unavailable Unavailable JASKARAN BROWN MAR, BROWN MAR Unavailable Unavailable HEATH JAM, HEATH JAM Unavailable Unavailable BUTROS RAE, BUTROS Unavailable Unavailable RAE [facility] Unavailable Unavailable PULMONARY M, [facility] CHIPPS NOAH & Unavailable Unavailable DUBILIER, CHIPPS NOAH & DUBILIER [facility] Unavailable Unavailable HOSPITAL, [facility] Unavailable Unavailable PRACTI, [facility] Unavailable Unavailable MEDICAL CENTE, [facility] Unavailable Unavailable PHYSICIAN PRA, [facility], Unavailable Unavailable [facility] THEODORE PATRICIA, THEODORE PATRICIA Unavailable Unavailable [facility] Unavailable Unavailable [facility]IA [facility], [facility] Unavailable Unavailable AND [facility], [facility] Unavailable Unavailable EQUIPMENT, [facility] GRIS JR CHAS, GRIS Unavailable Unavailable JR CHAS BRET REGINA, BRET REGINA Unavailable Unavailable DOWNS PAT, DOWNS PAT Unavailable Unavailable [facility] INC, [facility] Unavailable Unavailable DIAZ, DIAZ Unavailable Unavailable KANCHAN RAZA, KANCHAN RAZA Unavailable Unavailable KANCHAN RAZA, KANCHAN RAZA Unavailable Unavailable FERDA, FERDA Unavailable Unavailable [facility] Unavailable Unavailable GROUP P, [facility] GEILE CROWELL, GEILE CROWELL Unavailable Unavailable RACHELLE GRE, RACHELLE GRE Unavailable Unavailable GREGONIS MACK, Unavailable Unavailable GREGONIS MACK DORON SCO, Unavailable Unavailable DORON SCO SYED TWA, SYED Unavailable Unavailable TWA GREG ZECHARIAH, GREG ZECHARIAH Unavailable Unavailable TERRY DICK, TERRY Unavailable Unavailable DICK HULZEBOS RYA, Unavailable Unavailable HULZEBOS RYA KEENAN II JOSHUA, KEENAN Unavailable Unavailable II JOSHUA CLEMENS NINOSKA, CLEMENS NINOSKA Unavailable Unavailable EFFIE III SOCRATES, Unavailable Unavailable EFFIE III SOCRATES [facility] Unavailable Unavailable ASSOCIAT, [facility] KOUNS AGUSTÍN, KOUNS AGUSTÍN Unavailable [...] INC MANOOCHEHR MAZLOOMD, Unavailable Unavailable [facility] MAZLOOMD [facility] Unavailable Unavailable SERVICES, [facility] MAZLOOMDOOST RAZA, Unavailable Unavailable MAZLOOMDOOST RAZA MAZLOOMDOOST MAN, Unavailable Unavailable MAZLOOMDOOST MAN MCMENAMIN IVAN, Unavailable Unavailable MCMENAMIN IVAN MCMENAMIN IVAN, Unavailable Unavailable MCMENAMIN IVAN MCQUAIDE, MCQUAIDE Unavailable Unavailable MCQUAIDE CLARA, Unavailable Unavailable [facility] Un[facility]available [facility], [facility] Un[facility], [facility] MARIE RYA, MARIE Unavailable Unavailable RYA MOGILEVSKI, Unavailable Unavailable MOGILEVSKI MOGILEVSKI, Unavailable Unavailable MOGILEVSKI MOGILEVSKI JUSTIN, Unavailable Unavailable MOGILEVSKI JUSTIN CARMELOILEVSKI JUSTIN, Unavailable Unavailable CARMELOILEVSKI JUSTIN PATRICIA THEODORE MD Unavailable Unavailable CONSULTING SRV, PATRICIA THEODORE MD [facility] Unavailable Unavailable LAB, [facility]available Unavailable LAB, [facility] PICA DAVE, PICA DAVE Unavailable Unavailable [facility] Unavailable Unavailable SERVICE, [facility] Unavailable Unavailable SERVICE, [facility] Unavailable Unavailable [...] HAZ RADHA MAR, RADHA MAR Unavailable Unavailable [facility] Unavailable Unavailable EQUIPME, [facility] Unavailable Unavailable EMERGENCY PHYS, [facility] Unavailable Unavailable EMERGENCY SERVI, [facility] JR JUAN, JUAN, Unavailable Unavailable JR JR JUAN EDW, Unavailable Unavailable JR JUAN EDW [facility] Unavailable Unavailable [facility], Unavailable Unavailable [facility], [facility] Unavailable Unavailable [facility] Unavailable Unavailable #702, [facility] Unavailable [facility]available #702, [facility], Unavailable Unavailable [facility], Unavailable Unavailable [facility] [place] [facility], Unavailable Unavailable [facility] MUNSON KIN, MUNSON KIN Unavailable Unavailable [facility] [place] [employer] Unavailable Unavailable SYSTEMS IN, [facility] MARIO MAT, MARIO MAT Unavailable Unavailable Purpose Continuity of Care Document - 08-13-2009 through 2016 Problems Code Diagnosis DOS Provider Status 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 M545 LOW BACK 07-08-2016 [facility] PAIN ORTHOPEDIC ASSOCIAT M4806 SPINAL 06-07-2016 [facility] STENOSIS ORTHOPEDIC LUMBAR ASSOCIAT REGION M5126 OT 06-07-2016 [place] INTERVERTEB ORTHOPEDIC RAL DISC ASSOCIAT DISPLACEMEN T LUMBAR RGN G46788 SHELTER 05-25-2016 AEGIS CURRENT USE SCIENCES OF [employer] ANALGESIC G894 CHRONIC 05-14-2016 [facility] PAIN REGIONAL SYNDROME PHYSICIAN PRA J111 FLU D/T 05-14-2016 [facility] UNIDENTIFIE N [facility]ERGENCY D FLU VIRUS SERVI W/OTH RESP MANIF J209 ACUTE 05-14-2016 [facility] BRONCHITIS N EMERGENCY UNSPECIFIED SERVI J440 COPD WITH 05-14-2016 [facility] ACUTE LOWER N EMERGENCY SERVI RESPIRATORY INFECTION J441 CHRONIC 05-14-2016 [facility] OBSTRUCTIVE REGIONAL PULMONARY PHYSICIAN DZ PRA W/EXACERBAT ION J9691 RESPIRATORY 05-14-2016 [facility] FAILURE REGIONAL UNSPECIFIED PHYSICIAN WITH PRA HYPOXIA E781 PURE 04-27-2016 [facility] HYPERGLYCER REGIONAL [facility] J438 OTHER 04-14-2016 [facility] N6001 SOLITARY 04-14-2016 [facility] CYST OF RADIOLOGY RIGHT GROUP P BREAST N6489 OTHER 04-14-2016 [facility] SPECIFIED RADIOLOGY DISORDERS GROUP P OF BREAST R921 MAMMO 04-14-2016 [facility] CALCIFICATI RADIOLOGY ON FOUND ON GROUP P DX IMAGING BREAST R928 OTH ABNORM 04-14-2016 [facility] INCONCLUSIV GROUP P E FIND ON DX IMAG BREAST [id number] ADVERS EFF 04-04-2016 PATRICIA THEODORE UNS RX MEDS BIO CONSULTING SUBSTANCES SRV INIT ENC R079 CHEST PAIN 04-01-2016 [place] UNSPECIFIED FIRE EMS N858 OTHER 03-25-2016 [facility] SPECIFIED NOAH & NONINFLAMMA DUBILIER TORY DISORDERS UTERUS R938 ABNORMAL 03-25-2016 [facility] FIND ON DX REGIONAL IMAGING OT MEDICAL SPEC BODY CENTE STRCT A5900 UROGENITAL 03-24-2016 [facility] SIS [place] UNSPECIFIED R102 PELVIC AND 03-24-2016 [facility] PERINEAL HEALTH OF PAIN [place] Z1231 ENCOUNTER 03-24-2016 [facility] SCREENING RADIOLOGY MAMMO MALIG GROUP P NEOPLASM BREAST Z139 ENCOUNTER 03-24-2016 LABORATORY FOR KARTHIK OF SCREENING RM H UNSPECIFIED Z7252 HIGH RISK 03-24-2016 LABORATORY HOMOSEXUAL KARTHIK OF BEHAVIOR RM H Z780 ASYMPTOMATI 03-24-2016 [facility] C RADIOLOGY MENOPAUSAL GROUP P STATE 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 R569 UNSPECIFIED 03-14-2016 MOGILEVSKI CONVULSIONS S29382 ENCOUNTER 02-25-2016 [facility] SERVICE DESK MANAGER EXAM HEALTH OF GENERAL RTN [place] W/O ABNORMAL FIND Z124 ENCOUNTER 02-25-2016 LABORATORY OTHER KARTHIK OF SCREENING RM H MALIG NEOPLASM CERVIX A599 TRICHOMONIA 02-09-2016 [facility] SIS N EMERGENCY UNSPECIFIED PHYS G8929 OTHER 02-09-2016 [facility] CHRONIC [facility]AL PAIN MEDICAL CENTE J449 CHRONIC 02-09-2016 [facility] OBSTRUCTIVE [facility] PULMONARY MEDICAL DISEASE UNS CENTE M1990 UNSPECIFIED 02-09-2016 [facility] REG[facility]AL OSTEOARTHRI MEDICAL TIS CENTE UNSPECIFIED SITE A5901 TRICHOMONAL 02-04-2016 [facility] T[facility] M77945 OTH GEN 02-04-2016 [facility] EPILEPSY [facility] NOT HOSPITAL INTRACTABLE W/O STATUS EPI N3001 ACUTE 02-04-2016 [facility] CYSTITIS [facility] WITH HOSPITAL HEMATURIA Z720 TOBACCO USE 02-04-2016 [facility] G5732 LESION 01-25-2016 [facility] LATERAL ORTHOPEDIC POPLITEAL ASSOCIAT NERVE LEFT LOWER LIMB O57655 PAIN IN 01-25-2016 [facility] LEFT LEG ORTHOPEDIC ASSOCIAT R202 PARESTHESIA 01-25-2016 [place] OF SKIN ORTHOPEDIC ASSOCIAT R55 SYNCOPE AND 12-28-2015 MOGILEVSKI COLLAPSE JUSTIN M5386 OTHER 12-08-2015 [facility] SPECIFIED H SLEEP AND DORSOPATHIE REHA S LUMBAR REGION A84667 LOC-REL SX 12-04-2015 [facility]PI[facility] W/CPS NOT PHYSICIAN INTRACT W/O PRA SE I200 UNSTABLE 12-04-2015 [facility] ANGINA REGIONAL PHYSICIAN PRA I498 OTHER 12-04-2015 [facility] SPECIFIED AMBULANCE CARDIAC SERVICE ARRHYTHMIAS R51 HEADACHE 12-04-2015 [facility] PHYSICIAN PRA R531 WEAKNESS 12-04-2015 [facility] SERVICE I6523 OCCLUSION & 12-02-2015 [facility] ST[facility]IS RADIOLOGY BILATERAL GROUP P CAROTID ARTERIES K219 GASTRO-ESOP 12-01-2015 [facility] REFLUX REGIONAL DISEASE MEDICAL WITHOUT CENTE ESOPHAGITIS R05 COUGH 12-01-2015 [facility] EMS R062 WHEEZING 12-01-2015 [facility] EMS R071 CHEST PAIN 12-01-2015 [facility] BREATHING R42 DIZZINESS 12-01-2015 [facility] GIDDINESS MEDICAL CENTE R61 GENERALIZED 12-01-2015 [facility] HYPERHIDROS MEDICAL IS CENTE M14030 OTHER 10-15-2015 KANCHANVIRAJ PERSON SECONDARY CATARACT LEFT EYE H0231 BLEPHAROCHA 10-12-2015 KANCHANVIRAJ PERSON LASIS RIGHT UPPER EYELID H0234 BLEPHAROCHA 10-12-2015 KANCHANVIRAJ PERSON LASIS LEFT UPPER EYELID 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 B97270 OTHER 10-12-2015 KANCHANVIRAJ PERSON VITREOUS OPACITIES RIGHT EYE H527 UNSPECIFIED 10-12-2015 KANCHAN PERSON DISORDER OF REFRACTION Z961 PRESENCE OF 10-12-2015 KANCHANVIRAJ PERSON INTRAOCULAR LENS T05636 PAIN IN 09-22-2015 [place] LEFT HIP ORTHOPEDIC ASSOCIAT M5417 RADICULOPAT 09-22-2015 [place] HY ORTHOPEDIC LUMBOSACRAL ASSOCIAT REGION M5416 RADICULOPAT 06-22-2015 [facility] HY LUMBAR REGIONAL REGION MEDICAL CENTE U710ETL CONTUSION 05-25-2015 [facility] LOWER BACK REGIONAL & PELVIS MEDICAL INITIAL CENTE ENCOUNTER E785 HYPERLIPIDE 03-06-2015 [facility] MJ REGIONAL UNSPECIFIED PHYSICIAN PRA I10 ESSENTIAL 03-06-2015 [facility] PRIMARY REGIONAL HYPERTENSIO PHYSICIAN N PRA J22 UNSPECIFIED 03-06-2015 [facility] ACUTE REGIONAL LOWER PHYSICIAN RESPIRATORY PRA INFECTION 96614 DIARRHEA 08-25-2014 [facility] MEDICAL CENTE 59255 ESOPHAGEAL 08-20-2014 [facility] 5533 DIAPHRAGMAT 08-20-2014 [facility] W/O CLINIC MENTION OBSTRUCTION /GANGREN 7871 HEARTBURN 08-14-2014 [facility] 69966 FULL 07-17-2014 [facility] INCONTINENC REGIONAL E OF FECES MEDICAL CENTE 7932 NONSPC ABN 07-17-2014 [facility] FINDNG REGIONAL RAD&OTH MEDICAL EXAM OTH CENTE INTRTHOR ORGN 37100 TOTAL OR 07-03-2014 [facility] MATURE H SENILE ANESTHESIA CATARACT PSC 42675 OTHER AND 07-03-2014 KANCHANVIRAJ PERSON COMBINED FORMS OF SENILE CATARACT V7284 UNSPECIFIED 06-25-2014 [facility] PRE-OPERATI MEDICAL VE CENTE EXAMINATION 82740 AFTER-CATAR 06-23-2014 KANCHAN PERSON ACT, OBSCURING VISION 59619 BLEPHAROCHA 06-23-2014 KANCHAN PERSON LASIS V431 LENS 06-23-2014 KANCHAN PERSON REPLACED BY OTHER MEANS 496 CHRONIC 05-08-2014 [facility] AIRWAY OBSTRUCTION NEC 90853 OBSTRUCTIVE 03-17-2014 [facility] CHRONIC N EMERGENCY BRONCHITIS PHYS WITH EXACERBATIO N 2410 NONTOXIC 02-25-2014 [facility] UNINODULAR [facility]AL GOITER MEDICAL CENTE 56589 OCCLUSION&S 12-31-2013 [facility] TENOS REGIONAL CAROTID ART MEDICAL W/O CENTE MENTION INFARCT 74821 DYSPHAGIA 12-31-2013 [facility] UNSPECIFIED REGIONAL MEDICAL CENTE 7231 CERVICALGIA 12-30-2013 [facility] REG[facility]AL PHYSICIAN PRA 7245 UNSPECIFIED 12-30-2013 [facility] BACKACHE REGIONAL PHYSICIAN PRA 7820 DISTURBANCE 12-30-2013 [facility] OF SKIN REGIONAL SENSATION PHYSICIAN PRA 04406 PAIN IN 12-27-2013 [facility] [place] [facility] PELVIC REGION AND THIGH 7242 LUMBAGO 12-27-2013 [facility] [place] [facility] 2724 OTHER AND 12-13-2013 [facility] UNSPECIFIED REGIONAL PHYSICIAN HYPERLIPIDE PRA MJ 64721 OTHER 12-13-2013 [facility] CHRONIC REGIONAL PAIN PHYSICIAN PRA V163 FAMILY 12-13-2013 [facility] HISTORY OF REGIONAL MALIGNANT PHYSICIAN NEOPLASM OF PRA BREAST 486 PNEUMONIA, 12-06-2013 [facility] ORGANISM N EMERGENCY UNSPECIFIED SERVI 5119 UNSPECIFIED 12-06-2013 [facility] PLEURAL N EMERGENCY EFFUSION SERVI 35864 ACUTE 12-06-2013 [facility]URE SERV[facility] 22100 SHORTNESS 12-06-2013 [facility] OF BREATH FIRE EMS 25175 CHEST PAIN 12-06-2013 [place] UNSPECIFIED FIRE EMS 91663 HYPOXEMIA 12-06-2013 [facility] N EMERGENCY SERVI 60105 LEUKOCYTOSI 12-04-2013 KOUNS AGUSTÍN S UNSPECIFIED 5180 PULMONARY 12-03-2013 [facility] COLL[facility]SE RADIOLOGY GROUP P 28715 WHEEZING 12-03-2013 [facility] N EMERGENCY SERVI 4660 ACUTE 11-26-2013 [facility] BRONCHITIS N EMERGENCY SERVI 64770 OTHER 08-21-2013 [facility] SPECIFIED REGIONAL CIRCULATORY MEDICAL SYSTEM CENTE DISORDERS 41893 OTHER 08-21-2013 [facility] MALAISE AND REGIONAL FATIGUE MEDICAL CENTE V5869 LONG-TERM 08-21-2013 [facility] (CURRENT) REGIONAL USE OF MEDICAL OTHER CENTE MEDICATIONS 7243 SCIATICA 07-04-2013 [facility] N EMERGENCY PHYS 83631 OBESITY, 03-30-2013 ARNOLD OMAR UNSPECIFIED 87097 INSOMNIA 03-30-2013 ARNMONICA OMAR UNSPECIFIED 3669 UNSPECIFIED 03-14-2013 [facility] CATARACT H ANESTHESIA [facility] V7281 PRE-OPERATI 03-14-2013 [facility] MAY REGIONAL CARDIOVASCU MEDICAL LAR CENTE EXAMINATION 3679 UNSPECIFIED 02-13-2013 KANCHAN PERSON DISORDER OF REFRACTION& [place] [address] UNSPECIFIED 02-05-2013 [facility] [place] [facility] CONSTIPATIO N 7213 LUMBOSACRAL 01-11-2013 [facility] SPONDYLOSIS ASSOCIAT WITHOUT MYELOPATHY 08901 ASTHMA 12-27-2012 ARNOLD OMAR UNSPECIFIED WITH STATUS ASTHMATICUS 7823 EDEMA 12-27-2012 DOTTIEOLD OMAR 13716 DEGEN 12-06-2012 [facility] OSACRAL INTERVERTEB RAL DISC 7384 ACQUIRED 12-06-2012 [place] [facility] SPONDYLOLIS SERV THESIS FOUNDATIO 7210 CERVICAL 12-03-2012 [facility] [place] SPONDYLOSIS RADIOLOGY WITHOUT MYELOPATHY 7224 DEGENERATIO 12-03-2012 [facility] [place] N OF RADIOLOGY CERVICAL INTERVERTEB RAL DISC 7230 SPINAL 12-03-2012 [facility] STENOSIS IN REGIONAL CERVICAL MEDICAL REGION CENTE 31147 OSTEOARTHRO 11-23-2012 ALIX NELSON S INVLV MX SITES BUT [place] SPEC GEN 98693 OBSTRUCTIVE 10-30-2012 [facility] [place] APNEA PULMONARY M 85801 ACUTE AND 10-26-2012 [facility] CHRONIC REGIONAL RESPIRATORY MEDICAL FAILURE CENTE 7862 COUGH 10-25-2012 [facility] 78852 OTHER 10-25-2012 [facility] [place] NONSPECIFIC RADIOLOGY ABNORMAL FINDING OF LUNG FIELD 24787 SPONDYLOSIS 09-28-2012 [facility]ICAL WITH SERV MYELOPATHY FOUNDATIO THORACIC REGION 81308 INTERVERT 09-28-2012 [facility] MEDICAL LUMB DISC SERV D/O FOUNDATIO W/MYELOPATH Y LUMB REGION 7244 THORACIC/PROSPER 09-28-2012 [facility] NEURITIS/RA DICULITIS UNSPEC 35718 CLOSED 09-28-2012 [facility] , LUMBAR VERTEBRA 3384 CHRONIC 09-25-2012 [facility] SYNDROME 23867 PAIN IN 09-25-2012 [facility] UNSPECIF[facility] 7291 UNSPECIFIED 09-25-2012 [facility] MYOSITIS 52824 OTHER 08-07-2012 [facility] MEDICAL [place] [address] ALTERED 08-07-2012 [facility] MEDICAL MENTAL SERV STATUS FOUNDATIO 7202 SACROILIITI 05-01-2012 MANOOCHEHR S NOT MAZLOOMD ELSEWHERE CLASSIFIED 73839 SPASM OF 05-01-2012 [facility] MUSCLE MAZLOOMD 1101 DERMATOPHYT 04-19-2012 DO [place] OF PATHOLOGY NAIL SERVICES 7295 PAIN IN 03-08-2012 [place] SOFT FIRE EMS TISSUES OF LIMB 77394 CONJUNCTIVA 03-02-2012 [facility] 41942 ACUTE 02-25-2012 [facility]ARYNG[facility], EMERGENCY WITHOUT SERVICES MENTION OF OBSTRUCTIO 33666 NUCLEAR 02-07-2012 [facility]CLER[facility] 97431 OTHER 02-07-2012 [facility] ALLERGIC CONJUNCTIVI TIS 83668 UNSPECIFIED 11-01-2011 ALIX NELSON SLEEP APNEA 3278 OTHER 08-20-2011 [facility] ORGANIC REGIONAL SLEEP MEDICAL DISORDERS CENTE 58522 TRANSIENT 08-20-2011 [facility] ALTERATION REGIONAL OF MEDICAL AWARENESS CENTE 83654 METABOLIC 07-12-2011 [facility] ENCEPHALOPA REGIONAL THY FAMILY PRACTI 44714 OTHER CHEST 07-12-2011 [facility] PAIN [facility] SERVICES 34920 NAUSEA WITH 07-12-2011 [facility] VOMITING [facility]Y SERVICES V5882 ENCOUNTER 06-22-2011 [facility] [place] FITTING&ADJ RADIOLOGY NON-VASCULA R CATHETER NEC 81926 ACUTE 06-20-2011 [facility] RESPIRATORY REGIONAL FAILURE MEDICAL FLW TRAUMA CENTE & SURGERY V7651 SPECIAL 06-20-2011 MCMENAMIN SCREENING IVAN FOR MALIGNANT NEOPLASMS COLON 6218 OTHER 06-16-2011 [facility] SPECIFIED PATHOLOGY DISORDERS ASSOCIAT OF UTERUS NEC 6271 POSTMENOPAU 06-16-2011 [facility] STEPHEN REGIONAL BLEEDING MEDICAL CENTE V016 CONTACT 06-13-2011 [facility] WITH OR REGIONAL EXPOSURE TO MEDICAL VENEREAL CENTE DISEASES V7389 SPECIAL 06-13-2011 [facility] SCREENING REGIONAL EXAMINATION [place]ICAL [place] 75921 UNSPECIFIED 06-09-2011 [facility] VULVOVAGINI TIS 6259 UNSPEC 06-09-2011 [facility] W/FEMALE GENITAL ORGANS V762 SCREENING 06-09-2011 PATHOLOGY & FOR CYTOLOGY MALIGNANT LAB NEOPLASM OF THE CERVIX 4619 ACUTE 01-31-2011 ARNOLD OMAR SINUSITIS, UNSPECIFIED 5939 UNSPECIFIED 07-09-2010 ARNOLD OMAR DISORDER OF KIDNEY AND URETER 5990 URINARY 07-04-2010 [facility] TRACT [facility] INFECTION SERVICES SITE NOT SPECIFIED 8460 SPRAIN AND 07-04-2010 [facility] STRAIN OF EMERGENCY LUMBOSACRAL SERVICES E9289 UNSPECIFIED 07-04-2010 [facility] ACCIDENT [facility] 83618 ABDOMINAL 08-13-2009 [facility] PAIN, REGIONAL EPIGASTRIC MEDICAL CENTE Procedures Procedure DOS Code Location Performer Comment RADEX 34505 [facility] LILIAN SPINE 7 ORTHOPEDI LUMBOSACR C AL ASSOCIAT MINIMUM 4 VIEWS INJECTION 50194 [facility] RICE 7 ORTHOPEDI SINGLE/ML C T TRIGGER ASSOCIAT POINT 1/2 MUSCLES MRI 77377 [place] LILIAN SPINAL 7 ORTHOPEDI CANAL C LUMBAR ASSOCIAT W/O CONTRAST MATERIAL RADEX 47684 [facility] DIAZ SPINE 7 ORTHOPEDI LUMBOSACR C AL 2/3 ASSOCIAT VIEWS DRUG TEST 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 [address] REZA CORPORATI CORPORATI METH P ON ON DAY 15-21 DR HERNÁNDEZ OBSERVATI 17503 [facility] [place] ON CARE 7 REGIONAL DISCHARGE PHYSICIAN PRA MANAGEMEN T INITIAL 85534 [facility] [place] OBSERVATI 7 REGIONAL ON PHYSICIAN CARE/DAY PRA 50 MINUTES CHLORAMPH 63213 MARK AEGLENKA ENICOL 7 SCIENCES SCIENCES CORPORATI CORPORATI ON ON COL-CHR/M 22002 MARK FLORES S NONDRUG 7 SCIENCES SCIENCES ANALYTE CORPORATI CORPORATI KRISTI ON ON QUAL/SAUL EA SPEC DRUG TST G0483 MARK FLORES DEFINITV [address] ID CORPORATI CORPORATI METH P ON ON DAY 22/[place] [address] AEGIS MARK QUININE 7 SCIENCES SCIENCES CORPORATI CORPORATI ON ON COMPREHEN 92929 [facility] SOLAN[facility] SIVE 7 REGIONAL REGIONAL METABOLIC MEDICAL MEDICAL PANEL JINNY STEARNS RADIOLOGI 20288 [facility] C EXAM 7 [facility] CHEST 2 MEDICAL MEDICAL VIEWS JINNY STEARNS FRONTAL&L ATERAL LIPID 33621 [facility] PANEL 7 [facility] MEDICAL MEDICAL JINNY STEARNS PHRM Q0514 [facility] DIS[facility]IN 7 PHARMACY PHARMACY G FEE #702 #702 INHALATIO N RX; PER 90 DAYS ALBUTEROL J7613 [facility] INHAL 7 PHARMACY PHARMACY NON-CP #702 #702 PROD THRU DME U DOSE 1 MG US BREAST 64442 [facility] MCQUAIDE UNI REAL 7 N TIME RADIOLOGY WITH GROUP P IMAGE COMPLETE DIAGNOSTI G0204 [facility] MCQUAIDE C 7 N MAMMOGRAP RADIOLOGY HY INCL GROUP P CAD WHEN PERF; BILAT ECG 83036 PATRICIA THEODORE WAESPE ROUTINE 7 MD ECG CONSULTIN W/LEAST G SRV 12 LDS I&R ONLY AMB A0427 [facility] SERVICE 7 R FIRE R FIRE ALS EMS EMS EMERGENCY TRANSPORT LEVEL 1 GROUND A0425 [facility] MILEAGE 7 R FIRE R [place] [address] CHIPPS TANOUS, SURG 7 NOAH & JR PATHOLOGY DUBILIER GROSS&JASKARAN ROSCOPIC EXAM IADNA 21662 LABORATOR LABORATOR TRICHOMON 7 Y KARTHIK OF Y KARTHIK OF RM RM VAGINALIS H H AMPLIFIED PROBE TECH SCREENING G0202 [facility] SOLANO 7 REGIONAL REGIONAL MAMMOGRAP MEDICAL MEDICAL HY ALEXANDRA CENTE CENTE INCL CAD WHEN PERFORMD IADNA 66712 LABORATOR LABORATOR NEISSERIA 7 Y KARTHIK OF Y KARTHIK OF RM RM GONORRHOE [place] [address] [facility] TRANSVAGI 7 HEALTH OF NAL [place] R IADNA 36358 LABORATOR LABORATOR CHLAMYDIA 7 Y KARTHIK OF Y KARTHIK OF RM RM TRACHOMAT H H IS AMPLIFIED PROBE TQ ENDOMETRI 33432 [facility] FERDA AL BX 7 HEALTH OF W/WO ENDOCERVI [place] X BX W/O R DILAT SPX DXA BONE 90066 RUSS SOLANO DENSITY 7 REGIONAL REGIONAL STUDY 1/> MEDICAL MEDICAL SITES CENTE CENTE AXIAL SKEL SCR G0145 LABORATOR LABORATOR CYTOPATH 6 Y KARTHIK OF Y KARTHIK OF CERV/VAG RM RM SCR H H AUTO&MNL RSCR PHYS CERV/VAGI G0101 WOMEN'S FERDA NAL 6 HEALTH OF CANCER SCR; [place] PELV&CLIN R BREAST EXAM SCREEN Q0091 WOMEN'S FERDA PAP 6 HEALTH OF SMEAR; OBTAIN [place] PREP &C R ONVEY TO LAB GROUND A0425 YELLOW YELLOW MILEAGE 6 Preventsys PER E SYSTEMS E SYSTEMS STATUTE IN IN MILE AMB A0427 YELLOW YELLOW SERVICE 6 Preventsys ALS E SYSTEMS E SYSTEMS EMERGENCY IN IN TRANSPORT LEVEL 1 BASIC 46586 [facility] SOLANO METABOLIC 6 [facility] CALCIUM TOTAL URNLS DIP 72240 [facility] SOLANO 6 [facility] LET REAGENT AUTO MICROSCOP Y BLOOD 81740 RUSS SOLANO COUNT 6 [facility] AUTO&AUTO DIFRNTL WBC DRUG TEST G0479 RUSS SOLANO [address] [place] [address] NSTRUMENT ED CHEMISTRY ANLYZER NONINVASI 34730 RUSS SOLANO VE 6 [facility] OXIMETRY MULTIPLE DETER CULTURE 35428 RUSS SOLANO BACTERIAL 6 [facility] QUANTTATI VE COLONY COUNT URINE INJECTION J1040 SHRAVAN QUINTANA JAM 6 ORTHOPEDI METHYLPRE C DNISOLONE ASSOCIAT ACETATE 80 MG NJX 76645 SHRAVAN QUIN[place] JAM DX/THER 6 ORTHOPEDI SBST C EPIDURAL/ ASSOCIAT SUBARACH LUMBAR/SA CRAL NERVE 92249 SHRAVAN QUINTANA CONDUCTIO 6 ORTHOPEDI N STUDIES C 7-8 ASSOCIAT STUDIES NEEDLE 26196 SHRAVAN QUINTANA EMG EA 6 ORTHOPEDI EXTREMTY C W/PARASPI ASSOCIAT NL AREA COMPLETE PRESSURIZ 86923 RUSS SOLANO ED/NONPRE 6 REGIONAL REGIONAL SSURIZED MEDICAL MEDICAL INHALATIO CENTE CENTE N TREATMENT OBSERVATI 73298 [facility] REGIONAL YURY DISCHARGE PHYSICIAN PRA MANAGEMEN T GROUND A0425 Action NM Action NM MILEAGE 6 PER AMBULANCE AMBULANCE STATUTE SERVICE SERVICE MILE AMBULANCE A0428 [facility] PERLA CO SERVICE 6 BLS AMBULANCE AMBULANCE NONEMERGE SERVICE SERVICE NCY TRANSPORT PRESSURIZ 87241 RUSS SOLNAO ED/NONPRE 6 REGIONAL REGIONAL SSURIZED MEDICAL MEDICAL INHALATIO CENTE CENTE N TREATMENT THERAPEUT 70740 RUSS SOLANO IC 6 REGIONAL REGIONAL PROPHYLAC MEDICAL MEDICAL TIC/DX CENTE CENTE INJECTION SUBQ/IM THERAPEUT 90406 RUSS SOLANO IC 6 REGIONAL REGIONAL PROPHYLAC MEDICAL MEDICAL TIC/DX CENTE CENTE INJECTION SUBQ/IM CV STRS 54863 RUSS SOLANO TST 6 REGIONAL REGIONAL XERS&/OR MEDICAL MEDICAL RX CONT CENTE CENTE [facility] G0378 URSS SOLANO OBSERVATI 6 REGIONAL REGIONAL ON MEDICAL MEDICAL [place] [address] FOUNDATIO MCQUAIDE ANGIOGRAP 6 N CLARA HY NECK RADIOLOGY W/CONTRAS GROUP P T/NONCONT RAST DRUG TEST G0479 RUSS SOLANO 6 REGIONAL REGIONAL PRESUMP;I MEDICAL MEDICAL NSTRUMENT [place] [address] FOUNDATIO FOUNDATIO ANGIOGRAP 6 N N HY HEAD RADIOLOGY RADIOLOGY W/CONTRAS GROUP [place] [address] RUSS SOLANO TROPONIN 6 REGIONAL REGIONAL QUANTITAT MEDICAL MEDICAL ROBYN [facility] COLLECTIO 02849 R[facility] SOLANO N VENOUS 6 REGIONAL REGIONAL BLOOD MEDICAL MEDICAL VENIPUNCT [facility] [place] [address] RUSS SOLANO THYROID 6 REGIONAL REGIONAL STIMULATI MEDICAL MEDICAL NG [facility] HORMONE TSH ECHO 37818 RUSS SOLANO TTHRC R-T 6 REGIONAL REGIONAL 2D MEDICAL MEDICAL W/WOM-MOD [facility] E COMPL SPEC&COLR D PRESSURIZ 51730 RUSS SOLANO ED/NONPRE 6 REGIONAL REGIONAL SSURIZED MEDICAL MEDICAL INHALATIO [facility] N TREATMENT NONINVASI 31035 RUSS SOLANO VE 6 REGIONAL REGIONAL EAR/PULSE MEDICAL MEDICAL OXIMETRY [facility] SINGLE DETER MYOCARDIA 90779 RUSS SOLANO L SPECT 6 REGIONAL REGIONAL MULTIPLE MEDICAL MEDICAL STUDIES [facility] MRI BRAIN 15484 [facility] SOLANO BRAIN 6 REGIONAL REGIONAL STEM W/O MEDICAL MEDICAL CONTRAST [facility] MATERIAL ELECTROEN 90305 RUSS SOLANO CEPHALOGR 6 REGIONAL REGIONAL AM W/REC MEDICAL MEDICAL AWAKE&ASL [facility] EEP TECHNETIU A9500 RUSS Hoffmann TC-99M 6 REGIONAL REGIONAL SESTAMIBI MEDICAL MEDICAL DX PER [facility] STUDY DOSE LIPID 90619 R[facility] SOLANO PANEL 6 REGIONAL REGIONAL MEDICAL MEDICAL [facility] INITIAL 06733 RUSS BEAUCHAMPTON OBSERVATI 6 REGIONAL TWA ON PHYSICIAN CARE/DAY PRA 50 MINUTES INITIAL 59595 [facility] 6 I JUSTIN I JUSTIN CARE/DAY 50 MINUTES AMB A0427 [facility] SERVICE 6 R FIRE R FIRE ALS EMS EMS EMERGENCY TRANSPORT LEVEL 1 GROUND A0425 [facility] MILEAGE 6 R FIRE R [place] [address] RUSS SOLANO HEAD/BRAI 6 REGIONAL REGIONAL N W/O MEDICAL MEDICAL CONTRAST [facility] MATERIAL RADIOLOGI 19447 RUSS SOLANO C 6 REGIONAL REGIONAL EXAMINATI MEDICAL MEDICAL ON CHEST [facility] SING[place]IEW FRONTAL ECG 87920 [facility] RISHMAWI ROUTINE 6 TIFF HAZ ECG EMERGENCY W/LEAST PHYS 12 LDS I&R ONLY COMPREHEN 42484 RUSS SOLANO SIVE 6 REGIONAL REGIONAL METABOLIC MEDICAL MEDICAL PANEL [facility]ENTE CENTE CREATINE 64233 RUSS SOLANO KINASE MB 6 REGIONAL REGIONAL FRACTION MEDICAL MEDICAL ONLY [facility]ENTE CENTE COLLECTIO 86335 RUSS SOLANO N VENOUS 6 REGIONAL REGIONAL BLOOD MEDICAL MEDICAL VENIPUNCT [facility] [place] [address] RUSS SOLANO TROPONIN 6 REGIONAL REGIONAL QUANTITAT MEDICAL MEDICAL ROBYN [facility]AL[facility] BLOOD 60107 R[facility] SOLANO COUNT 6 REGIONAL REGIONAL COMPLETE MEDICAL MEDICAL AUTO&AUTO CENTE PRE[facility]ER HEAL[facility] DIFRNTL WBC ECG 42173 RUSS SOLANO ROUTINE 6 REGIONAL REGIONAL ECG MEDICAL MEDICAL W/LEAST CENTE CENTE 12 LDS TRCG ONLY W/O I&R NJX 14590 [facility] JAM DX/THER 6 ORTHOPEDI SBST C EPIDURAL/ ASSOCIAT SUBARACH LUMBAR/SA CRAL INJECTION J1040 IDAHO RICE JAM 6 ORTHOPEDI METHYLPRE C DNISOLONE ASSOCIAT ACETATE 80 MG POST-ADEOLA 65378 KANCHAN PERSON RACT 6 LASER SURGERY E-STIM G0283 RUSS SOLANO 1/> AREAS 6 REGIONAL REGIONAL OTH THAN MEDICAL MEDICAL WND CARE CENTE CENTE PART TX PLAN APPL 78659 R[facility] SOLANO MODALITY 6 REGIONAL REGIONAL 1/> AREAS MEDICAL MEDICAL TRACTION CENTE CENTE MECHANICA L THERAPEUT 11797 RUSS SOLANO IC PX 1/> 6 REGIONAL REGIONAL AREAS MEDICAL MEDICAL EACH 15 CENTE CENTE MIN EXERCISES DETERMINA 63898 KANCHAN PERSON TION 6 REFRACTIV E STATE OPHTHALMI 51812 KANCHAN Ferguson US DX 6 CORNEAL PACHYMETR Y UNI/BI E-STIM G0283 RUSS SOLANO 1/> AREAS 6 REGIONAL REGIONAL OTH THAN MEDICAL MEDICAL WND CARE CENTE CENTE PART TX PLAN THERAPEUT 37351 RUSS SOLANO IC PX 1/> 6 REGIONAL REGIONAL AREAS MEDICAL MEDICAL EACH 15 CENTE CENTE MIN EXERCISES APPL 02851 RUSS SOLANO MODALITY 6 REGIONAL REGIONAL 1/> AREAS MEDICAL MEDICAL TRACTION CENTE CENTE MECHANICA L INJECTION J1030 SHRAVAN MIN 6 ORTHOPEDI METHYLPRE C DNISOLONE ASSOCIAT ACETATE 40 MG ARTHROCEN 43499 SHRAVAN MIN TESIS 6 ORTHOPEDI ASPIR&/IN C J MAJOR ASSOCIAT JT/BURSA W/O US E-STIM G0283 RUSS SOLANO 1/> AREAS 6 REGIONAL REGIONAL OTH THAN MEDICAL MEDICAL WND CARE CENTE CENTE PART TX PLAN APPL 09141 RUSS SOLANO MODALITY 6 REGIONAL REGIONAL 1/> AREAS MEDICAL MEDICAL TRACTION CENTE CENTE MECHANICA L THERAPEUT 88101 RUSS SOLANO IC PX 1/> 6 REGIONAL REGIONAL AREAS MEDICAL MEDICAL EACH 15 CENTE CENTE MIN EXERCISES THERAPEUT 77019 RUSS SOLANO IC PX 1/> 6 REGIONAL REGIONAL AREAS MEDICAL MEDICAL EACH 15 CENTE CENTE MIN EXERCISES APPL 75020 RUSS SOLANO MODALITY 6 REGIONAL REGIONAL 1/> AREAS MEDICAL MEDICAL TRACTION CENTE CENTE MECHANICA L PHYSICAL 35750 RUSS SOLANO THERAPY 6 REGIONAL REGIONAL EVALUATIO MEDICAL MEDICAL N CENTE CENTE APPL 44510 RUSS SOLANO MODALITY 6 REGIONAL REGIONAL 1/> AREAS MEDICAL MEDICAL ELEC CENTE CENTE STIMJ EA 15 MIN MRI 05208 RUSS SOLANO SPINAL 6 REGIONAL REGIONAL CANAL MEDICAL MEDICAL LUMBAR CENTE CENTE W/O & W/CONTR MATRL RADEX 85511 RUSS SOLANO SPINE 6 REGIONAL REGIONAL LUMBOSACR MEDICAL MEDICAL AL CENTE CENTE MINIMUM 4 VIEWS COLLECTIO 78650 RUSS CLEMENS NINOSKA N VENOUS 6 REGIONAL BLOOD PHYSICIAN VENIPUNCT PRA URE COMPREHEN 68807 RUSS SOLANO SIVE 6 REGIONAL REGIONAL METABOLIC MEDICAL MEDICAL PANEL CENTE CENTE LIPID 53265 RUSS SOLANO PANEL 6 REGIONAL REGIONAL MEDICAL MEDICAL CENTE CENTE COLLECTIO 86954 RUSS SOLANO N VENOUS 5 REGIONAL REGIONAL BLOOD MEDICAL MEDICAL VENIPUNCT CENTE CENTE URE IMMUNOASS 40028 RUSS SOLANO AY 5 REGIONAL REGIONAL ANALYTE MEDICAL MEDICAL QUAL/SEMI CENTE CENTE QUAL MULTIPLE STEP SPECIAL 69158 [facility] TAN[facility], STAIN 5 JR EDW GROUP 1 PATHOLOGY MICROORGA ASSOCIAT NISMS I&R SPCL STN 30455 [facility] TANOUS, 2 I&R 5 JR EDW EXCPT PATHOLOGY MICROORG/ ASSOCIAT ENZYME/IM CYT COLONOSCO 70212 THE RUSS AMBERENAMIN PY 5 CLINIC IVAN W/BIOPSY SINGLE/[place] [address] [facility] TANOUS, SURG 5 JR EDW PATHOLOGY PATHOLOGY ASSOCIAT GROSS&JASKARAN ROSCOPIC EXAM ANES 02947 [facility] TERRY LOWER 5 LTH DICK INTESTINE ANESTHESI A PSC ENDOSCOPY DISTAL DUODENUM EGD 72719 THE RUSS CLARKENAMIN TRANSORAL 5 CLINIC IVAN BIOPSY [place]INGLE/[place] [address] RUSS SOLANO GAMMAGLOB 5 REGIONAL REGIONAL ULIN IGA MEDICAL MEDICAL IGD IGG CENTE PREMIER HEALTHE IGM EACH COLLECTIO 48968 RUSS SOLANO N VENOUS 5 REGIONAL [facility] BLO[facility]OSP[facility] MEDICAL VENIPUNCT [facility] [place] [address] RUSS SOLANO MULT STEP 5 REGIONAL REGIONAL METHOD MEDICAL MEDICAL NOS EACH [facility] ORGANISM BLOOD 20730 RUSS SOLANO COUNT 5 REGIONAL REGIONAL COMPLETE MEDICAL MEDICAL AUTO&AUTO [facility] [place] [address] RUSS SOLANO LIPASE 5 REGIONAL [facility] MEDICAL MEDICAL [facility] CUL BACT 38303 RUSS SOLANO STOOL 5 REGIONAL REGIONAL AEROBIC MEDICAL MEDICAL ADDL [facility] PATHOGENS &ID EA RADIOLOGI 78497 RUSS SOLANO C EXAM 5 REGIONAL REGIONAL CHEST 2 MEDICAL MEDICAL VIEWS [facility] FRONTAL&[place] [address] RUSS SOLANO CLOSTRIDI 5 REGIONAL REGIONAL UM MEDICAL MEDICAL DIFFICILE [facility] TOXIN COMPREHEN 45156 RUSS SOLANO SIVE 5 REGIONAL REGIONAL METABOLIC MEDICAL MEDICAL PANEL [facility] ANESTHESI 13525 [facility] KAYLEN A EYE 5 LTH CADENCE LENS ANESTHESI SURGERY A PSC CATARACT 84900 KANCHAN HEMPHILL RAZA REMOVAL 5 INSERTION OF LENS ECG 11616 RUSS DAVISVLIJOSÉ LUIS ROUTINE 5 REGIONAL YURY ECG MEDICAL W/LEAST CENTE 12 LDS I&R ONLY POST-ADEOLA 12267 KANCHAN PERSON RACT 5 LASER SURGERY OPH BMTRY 13928 KANCHAN PERSON US 5 ECHOGRAPY A-SCAN IO LENS PWR GUY PRTBLE E0431 [facility] GASEOUS 5 INC INC O2 SYS RENT; FLWMTR HUMIDFR&M ASK O2 CONC 1 E1390 [facility] DEL PORT 5 INC INC 85%/>02 CONC AT PRSC FLW RATE O2 CONC 1 E1390 [facility] DEL PORT 5 INC INC 85%/>02 CONC AT PRSC FLW RATE PRTBLE E0431 [facility] GASEOUS 5 INC INC O2 SYS RENT; FLWMTR HUMIDFR&M ASK HOSPITAL 56494 [facility] DISCHARGE 5 DAY MANAGEMEN T 30 MIN/< INITIAL 56629 [facility] 5 CARE/DAY 70 MINUTES PRTBLE E0431 [facility] GASEOUS 5 INC INC O2 SYS RENT; FLWMTR HUMIDFR&M ASK O2 CONC 1 E1390 [facility] DEL PORT 5 INC INC 85%/>02 CONC AT PRSC FLW RATE US SOFT 95159 RUSS RUSS TISSUE 4 REGIONAL REGIONAL HEAD & MEDICAL MEDICAL NECK REAL CENTE CENTE TIME IMGE DOCM PRTBLE E0431 [facility] GASEOUS 4 INC INC O2 SYS RENT; FLWMTR HUMIDFR&M ASK O2 CONC 1 E1390 [facility] DEL PORT 4 INC INC 85%/>02 CONC AT PRSC FLW RATE O2 CONC 1 E1390 [facility] DEL PORT 4 INC INC 85%/>02 CONC AT PRSC FLW RATE PRTBLE E0431 [facility] GASEOUS 4 INC INC O2 SYS RENT; FLWMTR HUMIDFR&M ASK DUPLEX 29236 RUSS RUSS SCAN 4 REGIONAL REGIONAL EXTRACRAN MEDICAL MEDICAL IAL ART CENTE CENTE COMPL BI STUDY CT LUMBAR 08154 [facility] [place] SPINE 4 RADIOLOGY LD IV ALL W/O CONTRAST MATERIAL RADEX 17302 [facility] [place] MAT SHOULDER 4 RADIOLOGY COMPLETE MIN[address] [place] [address] [facility] [place] HEAD/BRAI 4 RADIOLOGY LD IV ALL N W/O CONTRAST MATERIAL [address] LOWER 43614 [facility] [place] MAT EXTREMITY 4 RADIOLOGY W/O CONTRAST MATERIAL ALBUTEROL J7613 RELIANT RELIANT INHAL 4 PHARMACY PHARMACY NON-CP SERVICES SERVICES PROD THRU DME U DOSE 1 MG ARFORMOTE J7605 RELIANT RELIANT ROL INHAL 4 PHARMACY PHARMACY JOHN SERVICES SERVICES NONCOMP UNIT DOSE 15 MG PHRM Q0513 RELIANT RELIANT DISPENSIN 4 PHARMACY PHARMACY G FEE SERVICES SERVICES INHALATIO N RX; PER 30 DAYS LIPID 59756 [facility] SOLANO PANEL 4 [facility] REGIONAL MEDICAL MEDICAL CENTE JAMMIEE COMPREHEN 52618 RUSS SOLANO SIVE 4 [facility] MEDICAL MEDICAL PANEL [facility] O2 CONC 1 E1390 [facility] DEL PORT 4 INC INC 85%/>02 CONC AT [facility] FLW RATE PRTBLE E0431 [facility] GASEOUS 4 INC INC O2 SYS RENT; FLWMTR [facility] 54641 [facility] AGUSTÍN [place] AG[facility] DISCHARGE 4 DAY MANAGEMEN T 30 MIN/< AMB A0427 [facility] SERVICE 4 R FIRE R FIRE ALS EMS EMS EMERGENCY TRANSPORT LEVEL 1 GROUND A0425 [facility]RE R FIRE PER EMS EMS STATUTE MILE CRITICAL 89723 [facility] 4 TIFF RYA ILL/INJUR EMERGENCY ED SERVI PATIENT INIT 30-74 MIN SBSQ 91258 BOZENA AGUSTÍN [facility] 4 CARE/DAY 25 MINUTES INITIAL 99263 BOZENA AGUSTÍN [facility] 4 CARE/DAY 50 MINUTES CRITICAL 71414 [facility] 4 TIFF RYA ILL/INJUR EMERGENCY ED SERVI PATIENT INIT 30-74 MIN ECG 58902 [facility] ROUTINE 4 TIFF RYA ECG EMERGENCY W/LEAST SERVI 12 LDS I&R ONLY RADIOLOGI 50564 [facility] BROWN MAR C 4 N EXAMINATI RADIOLOGY ON CHEST GROUP P [place]ING[place] FRONTAL ARFORMOTE J7605 RELIANT RELIANT ROL INHAL 4 PHARMACY PHARMACY JOHN SERVICES SERVICES NONCOMP UNIT DOSE 15 MG ALBUTEROL J7613 RELIANT RELIANT INHAL 4 PHARMACY PHARMACY NON-CP SERVICES SERVICES PROD THRU DME U DOSE 1 MG PHRM Q0513 RELIANT RELIANT DISPENSIN 4 PHARMACY PHARMACY G FEE SERVICES SERVICES INHALATIO N RX; PER 30 DAYS PRTBLE E0431 [facility] GASE[facility] 4 INC INC O2 SYS RENT; FLWMTR HUMIDFR&M ASK O2 CONC 1 E1390 [facility] PORT 4 INC INC 85%/>02 CONC AT PRSC FLW RATE O2 CONC 1 E1390 [facility] PORT 4 INC INC 85%/>02 CONC AT PRSC FLW RATE PRTBLE E0431 [facility] GASEOUS 4 INC INC O2 SYS RENT; FLWMTR HUMIDFR&M ASK PHRM Q0513 RELIANT RELIANT DISPENSIN 4 PHARMACY PHARMACY G FEE SERVICES SERVICES INHALATIO N RX; PER 30 DAYS ARFORMOTE J7605 RELIANT RELIANT ROL INHAL 4 PHARMACY PHARMACY JOHN SERVICES SERVICES NONCOMP UNIT DOSE 15 MG ALBUTEROL J7613 RELIANT RELIANT INHAL 4 PHARMACY PHARMACY NON-CP SERVICES SERVICES PROD THRU DME U DOSE 1 MG O2 CONC 1 E1390 [facility] PORT 4 INC INC 85%/>02 CONC AT PRSC FLW RATE PRTBLE E0431 [facility] GASE[facility] 4 INC INC O2 SYS RENT; FLWMTR HUMIDFR&M ASK LIPID 51870 RUSS RUSS PANEL 4 REGIONAL REGIONAL MEDICAL MEDICAL CENTE CENTE BLOOD 92625 RUSS RUSS COUNT 4 REGIONAL REGIONAL SMEAR MEDICAL MEDICAL MCRSCP CENTE CENTE W/MNL DIFRNTL WBC COUNT COMPREHEN 56057 RUSS SOLANO SIVE 4 REGIONAL REGIONAL METABOLIC MEDICAL MEDICAL PANEL CENTE CENTE BLOOD 16488 RUSS RUSS COUNT 4 REGIONAL REGIONAL COMPLETE MEDICAL [place] [address] RUSS SOLANO THYROID 4 [facility] JINNY STEARNS HORMONE TSH ALBUTEROL J7613 RELIANT RELIANT INHAL 4 PHARMACY PHARMACY NON-CP SERVICES SERVICES PROD THRU DME U DOSE 1 MG ADMN SET A7005 [facility] W/SM VOL 4 INC INC NONFILTR NEBULIZR NON-DISPB L ARFORMOTE J7605 RELIANT RELIANT ROL INHAL 4 PHARMACY PHARMACY JOHN SERVICES SERVICES NONCOMP UNIT DOSE 15 MG PHRM Q0513 RELIANT RELIANT DISPENSIN 4 PHARMACY PHARMACY G FEE SERVICES SERVICES INHALATIO N RX; PER 30 DAYS PRTBLE E0431 [facility] 4 INC INC O2 SYS RENT; FLWMTR HUMIDFR&M ASK O2 CONC 1 E1390 [facility] 4 INC INC 85%/>02 CONC AT PRSC [...] N RX; PER 30 DAYS PRTBLE E0431 [facility] G[facility] 4 INC INC O2 SYS RENT; FLWMTR HUMIDFR&M ASK O2 CONC 1 E1390 [facility] DEL PORT 4 INC INC 85%/>02 CONC AT PRSC FLW RATE CT LUMBAR 47654 [facility] [place] [facility] SPINE 4 RADIOLOGY W/O CONTRAST MATERIAL O2 CONC 1 E1390 [facility] DEL PORT 4 INC INC 85%/>02 CONC AT PRSC FLW RATE PRTBLE E0431 [facility] GASE[facility] 4 INC INC O2 SYS RENT; FLWMTR HUMIDFR&M ASK PRTBLE E0431 [facility] GASEOUS 4 INC INC O2 SYS RENT; FLWMTR HUMIDFR&M ASK O2 CONC 1 E1390 [facility] DEL PORT 4 INC INC 85%/>02 CONC AT PRSC FLW RATE O2 CONC 1 E1390 [facility] DEL PORT 4 INC INC 85%/>02 CONC AT PRSC FLW RATE PRTBLE E0431 [facility] GASE[facility] 4 INC INC O2 SYS RENT; FLWMTR HUMIDFR&M ASK NEBULIZER E0570 [facility] WITH 4 INC INC COMPRESSO R ECG 34430 RUSS SEALS AGUSTÍN ROUTINE 4 REGIONAL ECG MEDICAL W/LEAST CENTE 12 LDS I&R ONLY ANESTHESI 03771 [facility] HULZEBOS A EYE 4 LTH RYA LENS ANESTHESI SURGERY A PSC CATARACT 49102 KANCHAN HEMPHILL RAZA REMOVAL 4 INSERTION OF LENS O2 CONC 1 E1390 [facility] DEL PORT 4 INC INC 85%/>02 CONC AT PRSC FLW RATE PRTBLE E0431 [facility] 4 INC INC O2 SYS RENT; FLWMTR HUMIDFR&M ASK BASIC 34759 RUSS SOLANO METABOLIC 4 REGIONAL REGIONAL PANEL MEDICAL MEDICAL CALCIUM CENTE JAMMIEE TOTAL COLLECTIO 46946 [facility]USS SOLANO N VENOUS 4 REGIONAL REGIONAL BLOOD MEDICAL MEDICAL VENIPUNCT CENTE JAMMIEE URE BLOOD 56783 RUSS RUSS COUNT 4 REGIONAL REGIONAL COMPLETE MEDICAL MEDICAL AUTO&AUTO CENTE CENTE DIFRNTL WBC NEBULIZER E0570 [facility] WITH 3 INC INC COMPRESSO R TENS E0730 EMPI INC EMPI INC DEVICE 3 4/MORE LEADS MULTI NERVE STIMULATI ON OPH BMTRY 11339 KANCHAN HEMPHILL RAZA US 3 ECHOGRAPY A-SCAN IO LENS PWR GUY PRTBLE E0431 [facility] GASE[facility] 3 INC INC O2 SYS RENT; FLWMTR HUMIDFR&M ASK O2 CONC 1 E1390 [facility] DEL PORT 3 INC INC 85%/>02 CONC AT PRSC FLW RATE ARFORMOTE J7605 RELIANT RELIANT ROL INHAL 3 PHARMACY PHARMACY JOHN SERVICES SERVICES NONCOMP UNIT DOSE 15 MG RADEX ABD 13353 [facility] [place] [facility] COMPL 3 RADIOLOGY CLARA AQT ABD W/S/E/D VIEWS 1 VIEW CH ALBUTEROL J7613 RELIANT RELIANT INHAL 3 PHARMACY PHARMACY NON-CP SERVICES SERVICES PROD THRU DME U DOSE 1 MG PHRM Q0513 RELIANT RELIANT DISPENSIN 3 PHARMACY PHARMACY G FEE SERVICES SERVICES INHALATIO N RX; PER 30 DAYS ADMN SET A7003 [facility] SM VOL 3 INC INC NONFILTR PNEUMAT NEBULIZR DISPBL NEBULIZER E0570 [facility] WITH 3 INC INC COMPRESSO R ARFORMOTE J7605 RELIANT RELIANT ROL INHAL 3 PHARMACY PHARMACY JOHN SERVICES SERVICES NONCOMP UNIT DOSE 15 MG THERAPEUT 50458 SHRAVAN NEVILLEU GRE IC PX 1/> 3 ORTHOPEDI AREAS C EACH 15 ASSOCIAT MIN EXERCISES SELF-CARE 43695 SHRAVAN NEVILLEU GRE /HOME 3 ORTHOPEDI MGMT C TRAINING ASSOCIAT EACH 15 MINUTES ALBUTEROL J7613 RELIANT RELIANT INHAL 3 PHARMACY PHARMACY NON-CP SERVICES SERVICES PROD THRU DME U DOSE 1 MG TENS E0730 EMPI INC EMPI INC DEVICE 3 4/MORE LEADS MULTI NERVE STIMULATI ON PHRM Q0513 RELIANT RELIANT DISPENSIN 3 PHARMACY PHARMACY G FEE SERVICES SERVICES INHALATIO N RX; PER 30 DAYS PRTBLE E0431 [facility] 3 INC INC O2 SYS RENT; FLWMTR HUMIDFR&M ASK THERAPEUT 90780 SHRAVAN NEVILLEU GRE IC PX 1/> 3 ORTHOPEDI AREAS C EACH 15 ASSOCIAT MIN EXERCISES E-STIM G0283 SHRAVAN NEVILLEU GRE 1/> AREAS 3 ORTHOPEDI OTH THAN C WND CARE ASSOCIAT PART TX PLAN O2 CONC 1 E1390 [facility] DEL PORT 3 INC INC 85%/>02 CONC AT [facility] FLW RATE E-STIM G0283 SHRAVAN NEVILLEU GRE 1/> AREAS 3 ORTHOPEDI OTH THAN C WND CARE ASSOCIAT PART TX PLAN THERAPEUT 80133 SHRAVAN BUSH GRE IC PX 1/> 3 ORTHOPEDI AREAS C EACH 15 ASSOCIAT MIN EXERCISES PHYSICAL 21492 SHRAVAN NORMAN THERAPY 3 ORTHOPEDI EVALUATIO C N ASSOCIAT E-STIM G0283 SHRAVAN BUSH GRE 1/> AREAS 3 ORTHOPEDI OTH THAN C WND CARE ASSOCIAT PART TX PLAN THERAPEUT 30169 SHRAVAN BUSH GRE IC PX 1/> 3 ORTHOPEDI AREAS C EACH 15 ASSOCIAT MIN EXERCISES ADMN SET A7005 [facility] W/SM VOL 3 INC INC NONFILTR NEBULIZR NON-DISPB L ALBUTEROL J7613 RELIANT RELIANT INHAL 3 PHARMACY PHARMACY NON-CP SERVICES SERVICES PROD THRU DME U DOSE 1 MG PHRM Q0513 RELIANT RELIANT DISPENSIN 3 PHARMACY PHARMACY G FEE SERVICES SERVICES INHALATIO N RX; PER 30 DAYS NEBULIZER E0570 [facility] WITH 3 INC INC COMPRESSO R PRTBLE E0431 [facility] GASE[facility] 3 INC INC O2 SYS RENT; FLWMTR HUMIDFR&M ASK O2 CONC 1 E1390 [facility] DEL PORT 3 INC INC 85%/>02 CONC AT PRSC FLW RATE RADEX [address] [facility] SPINE 3 Y [facility] AL MINIMUM 4 VIEWS MRI 26302 [facility] [place] [facility] SPINAL 3 RADIOLOGY CLARA CANAL CERVICAL W/O CONTRAST MATRL ALBUTEROL J7613 RELIANT RELIANT INHAL 3 PHARMACY PHARMACY NON-CP SERVICES SERVICES PROD THRU DME U DOSE 1 MG PHRM Q0513 RELIANT RELIANT DISPENSIN 3 PHARMACY PHARMACY G FEE SERVICES SERVICES INHALATIO N RX; PER 30 DAYS NEBULIZER E0570 [facility] WITH 3 INC INC COMPRESSO R PRTBLE E0431 [facility] G[facility] 3 INC INC O2 SYS RENT; FLWMTR HUMIDFR&M ASK O2 CONC 1 E1390 [facility] 3 INC INC 85%/>02 CONC AT [facility] FLW RATE ALBUTEROL J7613 RELIANT RELIANT INHAL 3 PHARMACY PHARMACY NON-CP SERVICES SERVICES PROD THRU DME U DOSE 1 MG PHRM Q0513 RELIANT RELIANT DISPENSIN 3 PHARMACY PHARMACY G FEE SERVICES SERVICES INHALATIO N RX; PER 30 DAYS INITIAL [address] MACK CARE/DAY PULMONARY 70 M MINUTES SBSQ 25547 [facility] 3 ADULT RAE CARE/DAY PRIMARY 35 CARE CLI MINUTES SBSQ 45648 [facility] 3 ADULT RAE CARE/DAY PRIMARY 35 CARE CLI MINUTES SBSQ 58484 [facility] 3 ADULT RAE CARE/DAY PRIMARY 35 CARE CLI MINUTES SBSQ 75750 [facility] 3 ADULT RAE CARE/DAY PRIMARY 35 CARE CLI MINUTES SBSQ 74503 [facility] 3 ADULT RAE CARE/DAY PRIMARY 35 CARE CLI MINUTES ECG 68264 RUSS BRAR ROUTINE 3 REGIONAL YURY ECG MEDICAL W/LEAST CENTE 12 LDS I&R ONLY CT THORAX 35662 [facility] [place] W/O 3 RADIOLOGY CLARA CONTRAST MATERIAL RADIOLOGI 95452 [facility] [place] [facility] C EXAM 3 RADIOLOGY CLARA CHEST 2 VIEWS FRONTAL&L ATERAL NEBULIZER E0570 [facility] WITH 3 INC INC COMPRESSO R PRTBLE E0431 [facility] GASE[facility] 3 INC INC O2 SYS RENT; FLWMTR HUMIDFR&M ASK O2 CONC 1 E1390 [facility] PORT 3 INC INC 85%/>02 [facility] AT [facility] FLW RATE ALBUTEROL J7613 RELIANT RELIANT INHAL 3 PHARMACY PHARMACY NON-CP SERVICES SERVICES PROD THRU DME U DOSE 1 MG PHRM Q0513 RELIANT RELIANT DISPENSIN 3 PHARMACY PHARMACY G FEE SERVICES SERVICES INHALATIO N RX; PER 30 DAYS MRI 46429 [facility] 3 Y Y [facility] LUMBAR W/O CONTRAST MATERIAL CONTINUOU E0601 FERREIRA FERREIRA S 3 MEDICAL MEDICAL POSITIVE EQUIPMENT EQUIPMENT AIRWAY PRESSURE DEVICE NEBULIZER E0570 [facility] WITH 3 INC INC COMPRESSO R PRTBLE E0431 [facility] GASEOUS 3 INC INC O2 SYS RENT; FLWMTR HUMIDFR&M ASK O2 CONC 1 E1390 [facility] PORT 3 INC INC 85%/>02 CONC AT PRS FLW RATE ALBUTEROL J7613 RELIANT RELIANT INHAL 3 PHARMACY PHARMACY NON-CP SERVICES SERVICES PROD THRU DME U DOSE 1 MG PHRM Q0513 RELIANT RELIANT DISPENSIN 3 PHARMACY PHARMACY G FEE SERVICES SERVICES INHALATIO N RX; PER 30 DAYS CONTINUOU E0601 FERREIRA FERREIRA S 3 MEDICAL MEDICAL POSITIVE EQUIPMENT EQUIPMENT AIRWAY PRESSURE DEVICE NEBULIZER E0570 [facility] WITH 3 INC INC COMPRESSO R PHRM Q0513 RELIANT RELIANT DISPENSIN 3 PHARMACY PHARMACY G FEE SERVICES SERVICES INHALATIO N RX; PER 30 DAYS PRTBLE E0431 [facility] GASEOUS 3 INC INC O2 SYS RENT; FLWMTR HUMIDFR&M ASK ADMN SET A7003 [facility] SM VOL 3 INC INC NONFILTR PNEUMAT NEBULIZR DISPBL ALBUTEROL J7613 RELIANT RELIANT INHAL 3 PHARMACY PHARMACY NON-CP SERVICES SERVICES PROD THRU DME U DOSE 1 MG O2 CONC 1 E1390 [facility] 3 INC INC 85%/>02 [place] [address] [place] [facility] HEAD/BRAI 3 MEDICAL FLA N W/O SERV CONTRAST FOUNDATIO MATERIAL ECG 70805 [place] GREG ZECHARIAH ROUTINE 3 MEDICAL ECG SERV W/LEAST FOUNDATIO 12 LDS I&R ONLY CONTINUOU E0601 FERREIRA FERREIRA S 3 MEDICAL MEDICAL POSITIVE EQUIPMENT EQUIPMENT AIRWAY PRESSURE DEVICE HUMDIFIR E0562 FERREIRA FERREIRA HEATED 3 MEDICAL MEDICAL USED EQUIPMENT EQUIPMENT W/POS ARWAY PRESSURE DEVICE NEBULIZER E0570 [facility] WITH 3 INC INC COMPRESSO R PRTBLE E0431 [facility] GASEOUS 3 INC INC O2 SYS RENT; FLWMTR HUMIDFR&M ASK O2 CONC 1 E1390 [facility] DEL PORT 3 INC INC 85%/>02 CONC [...] EQUIPMENT EQUIPMENT AIRWAY PRESSURE DEVICE NEBULIZER E0570 [facility] WITH 3 INC INC COMPRESSO R PRTBLE E0431 [facility] GASEOUS 3 INC INC O2 SYS RENT; FLWMTR HUMIDFR&M ASK O2 CONC 1 E1390 [facility] 3 INC INC 85%/>02 CONC AT PRSC FLW RATE CONTINUOU E0601 FERREIRA FERREIRA S 3 MEDICAL MEDICAL POSITIVE EQUIPMENT EQUIPMENT AIRWAY PRESSURE DEVICE ALBUTEROL J7613 RELIANT RELIANT INHAL 3 PHARMACY PHARMACY NON-CP SERVICES SERVICES PROD THRU DME U DOSE 1 MG PHRM Q0513 RELIANT RELIANT DISPENSIN 3 PHARMACY PHARMACY G FEE SERVICES SERVICES INHALATIO N RX; PER 30 DAYS NEBULIZER E0570 [facility] WITH 3 INC INC COMPRESSO R PRTBLE E0431 [facility] GASEOUS 3 INC INC O2 SYS RENT; FLWMTR HUMIDFR&M ASK O2 CONC 1 E1390 [facility] PORT 3 INC INC 85%/>02 CONC AT PRSC FLW RATE CONTINUOU E0601 FERREIRA FERREIRA S 3 MEDICAL MEDICAL POSITIVE EQUIPMENT EQUIPMENT AIRWAY PRESSURE DEVICE HUMDIFIR E0562 FERREIRA FERREIRA HEATED 3 MEDICAL MEDICAL USED EQUIPMENT EQUIPMENT W/POS ARWAY PRESSURE DEVICE NEBULIZER E0570 [facility] WITH 3 INC INC COMPRESSO R CULTURE 30190 DO LEI FUNGI 3 PATHOLOGY PATHOLOGY DEFINITIV SERVICES SERVICES E ID EACH ORGANISM MOLD SPECIAL [id number] DO [facility]I STAIN 3 PATHOLOGY PATHOLOGY GROUP 1 SERVICES SERVICES MICROORGA NISMS I&[place] [address] [facility] SURG 3 PATHOLOGY PATHOLOGY PATHOLOGY SERVICES SERVICES GROSS&JASKARAN ROSCOPIC EXAM CUL FNGI 62102 OD [facility]I MOLD/YEAS 3 PATHOLOGY PATHOLOGY T PRSMPTV SERVICES SERVICES ID SKN HAIR/NAIL ALBUTEROL J7613 RELIANT RELIANT INHAL 3 PHARMACY PHARMACY NON-CP SERVICES SERVICES PROD THRU DME U DOSE 1 MG ADMN SET A7005 [facility] W/SM VOL 3 INC INC NONFILTR NEBULIZR NON-DISPB L PHRM Q0513 RELIANT RELIANT DISPENSIN 3 PHARMACY PHARMACY G FEE SERVICES SERVICES INHALATIO N RX; PER 30 DAYS PRTBLE E0431 [facility] GASEOUS 3 INC INC O2 SYS RENT; FLWMTR HUMIDFR&M ASK O2 CONC 1 E1390 [facility] DEL PORT 3 INC INC 85%/>02 CONC AT PRS FLW RATE INJECTION J3301 MANOOCHEH MAZLOOMDO 3 R OST RAZA TRIAMCINO MAZLOOMD LONE ACETONIDE NOS 10 MG NJX 21519 MANOOCHEH MAZLOOMDO DX/THER 3 R OST RAZA AGT PVRT MAZLOOMD FACET JT LMBR/SAC 1 LEVEL NJX 61511 MANOOCHEH MAZLOOMDO DX/THER 3 R OST RAZA AGT PVRT MAZLOOMD FACET JT LMBR/SAC 2ND LEVEL CONTINUOU E0601 FERREIRA FERREIRA S 3 MEDICAL MEDICAL POSITIVE EQUIPMENT EQUIPMENT AIRWAY PRESSURE DEVICE HUMDIFIR E0562 FERREIRA FERREIRA HEATED 3 MEDICAL MEDICAL USED EQUIPMENT EQUIPMENT W/POS ARWAY PRESSURE DEVICE ADMN SET A7003 [facility] SM VOL 3 INC INC NONFILTR PNEUMAT NEBULIZR DISPBL NEBULIZER E0570 [facility] WITH 3 INC INC COMPRESSO R ALBUTEROL J7613 RELIANT RELIANT INHAL 3 PHARMACY PHARMACY NON-CP SERVICES SERVICES PROD THRU DME U DOSE 1 MG PHARM G0333 RELIANT RELIANT DISPEN 3 PHARMACY PHARMACY FEE INHAL SERVICES SERVICES RX; INITIAL 30-DAY SUPPLY O2 CONC 1 E1390 [facility] DEL PORT 3 INC INC 85%/>02 CONC AT [facility] FLW RATE PRTBLE E0431 [facility] GASEOUS 3 INC INC O2 SYS RENT; FLWMTR HUMIDFR&M ASK AMB A0427 [facility] SERVICE 3 R FIRE R FIRE ALS EMS EMS EMERGENCY TRANSPORT LEVEL 1 GROUND A0425 [facility] MILEAGE 3 R FIRE R FIRE PER EMS EMS STATUTE MILE RADIOLOGI 92261 RYAN PARSONS C 3 EMERGENCY EXAMINATI SERVICES ON CHEST SINGLE VIEW FRONTAL ECG 22472 RYAN PARSONS ROUTINE 3 EMERGENCY ECG SERVICES W/LEAST 12 LDS I&R ONLY RADIOLOGI 67001 RYAN TAPIA C EXAM 2 EMERGENCY CHEST 2 SERVICES VIEWS FRONTAL&L ATERAL O2 CONC 1 E1390 TRAY TRAY DEL PORT 2 HOME HOME 85%/>02 MEDICAL MEDICAL CONC AT EQUIPME EQUIPME [facility] FLW RATE CONTINUOU E0601 FERREIRA FERREIRA S 2 MEDICAL MEDICAL POSITIVE EQUIPMENT EQUIPMENT AIRWAY PRESSURE DEVICE PRTBLE E0431 TRAY FELIZ GASEOUS 2 HOME HOME O2 SYS MEDICAL MEDICAL RENT; EQUIPME EQUIPME FLWMTR HUMIDFR&M ASK HUMDIFIR E0562 FERREIRA FERREIRA HEATED 2 MEDICAL MEDICAL USED EQUIPMENT EQUIPMENT W/POS ARWAY PRESSURE DEVICE OPHTH 09990 PRE[facility]ER RADHA MAR MEDICAL 2 EYE CARE XM&EVAL [facility] COMPRE NEW PT 1/> VST DETERMINA 46542 PREMIER RADHA GÓMEZ TION 2 EYE CARE REFRACTIV PLL E STATE CONTINUOU E0601 FERREIRA FERREIRA S 2 MEDICAL MEDICAL POSITIVE EQUIPMENT EQUIPMENT AIRWAY PRESSURE DEVICE O2 CONC 1 E1390 TRAY PATRICK PORT 2 HOME HOME 85%/>02 MEDICAL MEDICAL CONC AT EQUIPME EQUIPME PRSC FLW RATE HUMDIFIR E0562 FERREIRA FERREIRA HEATED 2 MEDICAL MEDICAL USED EQUIPMENT EQUIPMENT W/POS ARWAY PRESSURE DEVICE PRTBLE E0431 TRAY FELIZ GASEOUS 2 HOME HOME O2 SYS MEDICAL MEDICAL RENT; EQUIPME EQUIPME FLWMTR HUMIDFR&M ASK PRTBLE E0431 TRAY FELIZ GASEOUS 2 HOME HOME O2 SYS MEDICAL MEDICAL RENT; EQUIPME EQUIPME FLWMTR HUMIDFR&M ASK HUMDIFIR E0562 FERREIRA FERREIRA HEATED 2 MEDICAL MEDICAL USED EQUIPMENT EQUIPMENT W/POS ARWAY PRESSURE DEVICE O2 CONC 1 E1390 TRAY PATRICK PORT 2 HOME HOME 85%/>02 MEDICAL MEDICAL CONC AT EQUIPME EQUIPME PRSC FLW RATE CONTINUOU E0601 FERREIRA FERREIRA S 2 MEDICAL MEDICAL POSITIVE EQUIPMENT EQUIPMENT AIRWAY PRESSURE DEVICE CONTINUOU E0601 FERREIRA FERREIRA S 2 MEDICAL MEDICAL POSITIVE EQUIPMENT EQUIPMENT AIRWAY PRESSURE DEVICE O2 CONC 1 E1390 TRAY PATRICK PORT 2 HOME HOME 85%/>02 MEDICAL MEDICAL CONC AT EQUIPME EQUIPME PRSC FLW RATE HUMDIFIR E0562 FERREIRA FERREIRA HEATED 2 MEDICAL MEDICAL USED EQUIPMENT EQUIPMENT W/POS ARWAY PRESSURE DEVICE PRTBLE E0431 TRAY FELIZ GASEOUS 2 HOME HOME O2 SYS MEDICAL MEDICAL RENT; EQUIPME EQUIPME FLWMTR HUMIDFR&M ASK PRTBLE E0431 TRAY FELIZ GASEOUS 2 HOME HOME O2 SYS MEDICAL MEDICAL RENT; EQUIPME EQUIPME FLWMTR HUMIDFR&M ASK HUMDIFIR E0562 FERREIRA FERREIRA HEATED 2 MEDICAL MEDICAL USED EQUIPMENT EQUIPMENT W/POS ARWAY PRESSURE DEVICE O2 CONC 1 E1390 TRAY PATRICK PORT 2 HOME HOME 85%/>02 MEDICAL MEDICAL CONC AT EQUIPME EQUIPME PRSC FLW RATE CONTINUOU E0601 FERREIRA FERREIRA S 2 MEDICAL MEDICAL POSITIVE EQUIPMENT EQUIPMENT AIRWAY PRESSURE DEVICE POLYSOM 28819 PATRICIA THEODORE THEODORE PATRICIA 6/>YRS 2 SLEEP CONSULTIN W/CPAP G SRV 4/> ADDL TITA ATTND POLYSOM 83255 RUSS SOLANO 6/>YRS 2 [facility] SLEEP MEDICAL MEDICAL W/CPAP CENTE CENTE 4/> ADDL TITA ATTND CONTINUOU E0601 FERREIRA FERREIRA S 2 MEDICAL MEDICAL POSITIVE EQUIPMENT EQUIPMENT AIRWAY PRESSURE DEVICE FULL FACE A7030 FERREIRA FERREIRA MASK 2 MEDICAL MEDICAL USED EQUIPMENT EQUIPMENT W/POS ARWAY PRESS DEVICE EA FILTER A7038 FERREIRA FERREIRA DISPBL 2 MEDICAL MEDICAL USED EQUIPMENT EQUIPMENT W/POS ARWAY PRESSURE DEVICE FILTER A7039 FERREIRA FERREIRA NON 2 MEDICAL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
--- OUTSIDE RECORDS SUMMARY | 2016-12-18 18:49 | External Medical Summary Rpt | CCD ---
Author Author , ROSA Organization [facility]ES[facility] Address Unknown Phone [email or web address] Care Team Providers Care Medical Appointment Clerk Name Role Phone JORGE, JORGE Unavailable Unavailable [...] Unavailable BUTROS RAE, BUTROS Unavailable Unavailable RAE [facility] Unavailable Unavailable PULMONARY M, [facility] & Unavailable Unavailable [facility], [facility] Unavailable Unavailable HOSPITAL, [facility] Unavailable Unavailable PRACTI, [facility] Unavailable Unavailable MEDICAL CENTE, [facility] Unavailable Unavailable PHYSICIAN PRA, [facility] PHYSICIAN PRA [facility], Unavailable Unavailable [facility] THEODORE PATRICIA, THEODORE PATRICIA Unavailable Unavailable [facility] Unavailable Unavailable ANESTHESIA PSC, [facility] Unavailable Unavailable AND REHA, [facility] Unavailable [...] III SOCRATES, Unavailable Unavailable EFFIE III [facility] Unavailable Unavailable ASSOCIAT, [facility] KOUNS AGUSTÍN, KOUNS AGUSTÍN Unavailable [...] INC MAN[facility]HE[facility] MAZLOOMD, Unavailable Unavailable [facility] MA[facility]LO[facility] Unavailable Unavailable SERVICES, [facility] MAZLOOMDOOST RAZA, Unavailable Unavailable MAZLOOMDOOST [...] Unavailable [facility] Unavailable Unavailable SERVICE, [facility]available Unavailable SERVICE, [facility] Unavailable [...] Unavailable Unavailable EQUIPME, [facility] Unavailable Unavailable EMERGENCY PHYS, [facility]ERGENC[facility]YS [facility] Unavailable Unavailable EMERGENCY SERVI, [facility] EMERGENCY SERVI JR JUAN, JUAN, Unavailable Unavailable JR JR JUAN EDW, Unavailable Unavailable JR JUAN EDW [facility] Unavailable [facility]available [facility], Unavailable Unavailable [facility] WAESPE, WAESPE Unavailable Unavailable [facility] Unavailable Unavailable #702, [facility] Unavailable [facility]available #702, [facility], Unavailable Unavailable [facility], [facility]available Unavailable [facility], Unavailable Unavailable [facility] MUNSON KIN, MUNSON KIN Unavailable Unavailable [facility] Unavailable Unavailable [facility] [place] [employer] Unavailable Unavailable SYSTEMS IN, [facility] MARIO MAT, MARIO MAT Unavailable Unavailable Purpose Continuity of Care Document - 08-13-2009 through 2016 Problems Code Diagnosis DOS Provider Status M5136 OT 07-08-2016 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 M545 LOW BACK 07-08-2016 [facility] PAIN [facility]THOP[facility]IC ASSOCIAT M4806 SPINAL 06-07-2016 [facility] STENOSIS ORTHOPEDIC LUMBAR ASSOCIAT REGION M5126 OT 06-07-2016 [facility] RAL DISC ASSOCIAT DISPLACEMEN T LUMBAR RGN R48132 SKILLED NURSING 05-25-2016 [facility] CURRENT USE SCIENCES OF [email or web address] ANALGESIC G894 CHRONIC 05-14-2016 [facility] PAIN REGIONAL [...] PHARMACY #702 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 N6489 OTHER 04-14-2016 [facility] SPECIFIED RADIOLOGY DISORDERS GROUP P OF BREAST R921 MAMMO 04-14-2016 [facility] CALCIFICATI RADIOLOGY ON FOUND ON GROUP P DX IMAGING BREAST R928 OTH ABNORM 04-14-2016 [facility] INCONCLUSIV GROUP P E FIND ON DX IMAG BREAST [id number] ADVERS EFF 04-04-2016 PATRICIA THEODORE UNS RX MEDS BIO CONSULTING SUBSTANCES SRV INIT ENC R079 CHEST PAIN 04-01-2016 [facility] UNSPECIFIED FIRE EMS N858 OTHER 03-25-2016 [facility] SPECIFIED NOAH & NONINFLAMMA DUBILIER TORY DISORDERS UTERUS R938 ABNORMAL 03-25-2016 [facility] FIND ON DX REGIONAL IMAGING OT MEDICAL SPEC BODY CENTE STRCT A5900 UROGENITAL 03-24-2016 [facility] SIS [place] UNSPECIFIED R102 PELVIC AND 03-24-2016 [facility] PERINEAL HEALTH OF PAIN [place] Z1231 ENCOUNTER 03-24-2016 [facility] SCREENING RADIOLOGY MAMMO MALIG GROUP P NEOPLASM BREAST Z139 ENCOUNTER 03-24-2016 LABORATORY FOR KARTHIK OF SCREENING RM H UNSPECIFIED Z7252 HIGH RISK 03-24-2016 LABORATORY HOMOSEXUAL KARTHIK OF BEHAVIOR RM H Z780 ASYMPTOMATI 03-24-2016 [facility] C RADIOLOGY MENOPAUSAL GROUP P STATE 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 R569 UNSPECIFIED 03-14-2016 [facility] CONVULSIONS Y48077 ENCOUNTER 02-25-2016 [facility] P[facility]IATR[facility] SOCIAL WORKER EXAM HEALTH OF GENERAL RTN [place] W/O ABNORMAL FIND Z124 ENCOUNTER 02-25-2016 LABORATORY OTHER KARTHIK OF SCREENING RM H MALIG NEOPLASM CERVIX A599 TRICHOMONIA 02-09-2016 [facility] N EMERGENCY UNSPECIFIED PHYS G8929 OTHER 02-09-2016 [facility] CHRONIC REGIONAL PAIN MEDICAL CENTE J449 CHRONIC 02-09-2016 [facility] OBSTRUCTIVE REGIONAL PULMONARY MEDICAL DISEASE UNS CENTE M1990 UNSPECIFIED 02-09-2016 [facility] REGIONAL OSTEOARTHRI MEDICAL TIS CENTE UNSPECIFIED SITE A5901 TRICHOMONAL 02-04-2016 [facility] T[facility] K90801 OTH GEN 02-04-2016 [facility] EPILEPSY [facility] NOT HOSPITAL INTRACTABLE W/O STATUS EPI N3001 ACUTE 02-04-2016 [facility] CYSTITIS [facility] WITH HOSPITAL HEMATURIA Z720 TOBACCO USE 02-04-2016 [facility] G5732 LESION 01-25-2016 [facility] LATERAL ORTHOPEDIC POPLITEAL ASSOCIAT NERVE LEFT LOWER LIMB E13391 PAIN IN 01-25-2016 [facility] LEG ORTHOP[facility]IC ASSOCIAT R202 PARESTHESIA 01-25-2016 [place] OF SKIN ORTHOPEDIC ASSOCIAT R55 SYNCOPE AND 12-28-2015 [facility] COLLAPSE JUSTIN M5386 OTHER 12-08-2015 [facility] SPECIFIED H SLEEP AND DORSOPATHIE REHA S LUMBAR REGION F88604 LOC-REL SX 12-04-2015 [facility]PI[facility]PSY [facility] W/CPS NOT PHYSICIAN INTRACT W/O PRA SE I200 UNSTABLE 12-04-2015 [facility] ANGINA REGIONAL PHYSICIAN PRA I498 OTHER 12-04-2015 [facility] SPECIFIED AMBULANCE CARDIAC SERVICE ARRHYTHMIAS R51 HEADACHE 12-04-2015 [facility] PHYSICIAN PRA R531 WEAKNESS 12-04-2015 [facility] SERVICE I6523 OCCLUSION & 12-02-2015 [facility] RADIOLOGY BILATERAL GROUP P CAROTID ARTERIES K219 GASTRO-ESOP 12-01-2015 [facility] REFLUX REGIONAL DISEASE MEDICAL WITHOUT CENTE ESOPHAGITIS R05 COUGH 12-01-2015 [facility] R062 WHEEZING 12-01-2015 [facility] R071 CHEST PAIN 12-01-2015 [facility] BREATHING R42 DIZZINESS 12-01-2015 [facility] GIDD[facility] MEDICAL CENTE R61 GENERALIZED 12-01-2015 [facility] HYPERHIDROS MEDICAL IS CENTE G70196 OTHER 10-15-2015 KANCHANVIRAJ PERSON SECONDARY CATARACT LEFT EYE H0231 BLEPHAROCHA 10-12-2015 KANCHANVIRAJ PERSON LASIS RIGHT UPPER EYELID H0234 BLEPHAROCHA 10-12-2015 KANCHANVIRAJ PERSON LASIS LEFT UPPER EYELID 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 J30679 OTHER 10-12-2015 KANCHANVIRAJ PERSON VITREOUS OPACITIES RIGHT EYE H527 UNSPECIFIED 10-12-2015 KANCHAN PERSON DISORDER OF REFRACTION Z961 PRESENCE OF 10-12-2015 KANCHANVIRAJ PERSON INTRAOCULAR LENS W72405 PAIN IN 09-22-2015 [place] LEFT HIP ORTHOPEDIC ASSOCIAT M5417 RADICULOPAT 09-22-2015 [place] HY ORTHOPEDIC LUMBOSACRAL ASSOCIAT REGION M5416 RADICULOPAT 06-22-2015 [facility] HY LUMBAR REGIONAL REGION MEDICAL CENTE F887DIY CONTUSION 05-25-2015 [facility] LOWER BACK REGIONAL & PELVIS MEDICAL INITIAL CENTE ENCOUNTER E785 HYPERLIPIDE 03-06-2015 [facility] MJ REGIONAL UNSPECIFIED PHYSICIAN PRA I10 ESSENTIAL 03-06-2015 [facility] PRIMARY REGIONAL HYPERTENSIO PHYSICIAN N PRA J22 UNSPECIFIED 03-06-2015 [facility] ACUTE REGIONAL LOWER PHYSICIAN RESPIRATORY PRA INFECTION 60631 DIARRHEA 08-25-2014 [facility] MEDICAL CENTE 25106 ESOPHAGEAL 08-20-2014 [facility] 5533 DIAPHRAGMAT 08-20-2014 [facility] YASIR W/O CLINIC MENTION OBSTRUCTION /GANGREN 7871 HEARTBURN 08-14-2014 [facility] 01999 FULL 07-17-2014 [facility] INCONTINENC REGIONAL E OF FECES MEDICAL CENTE 7932 NONSPC ABN 07-17-2014 [facility] FINDNG REGIONAL RAD&OTH MEDICAL EXAM OTH CENTE INTRTHOR ORGN 02943 TOTAL OR 07-03-2014 [facility] MATURE H SENILE ANESTHESIA CATARACT PSC 81237 OTHER AND 07-03-2014 KANCHANVIRAJ PERSON COMBINED FORMS OF SENILE CATARACT V7284 UNSPECIFIED 06-25-2014 [facility] PRE-OPERATI MEDICAL VE CENTE EXAMINATION 02413 AFTER-CATAR 06-23-2014 KANCHAN PERSON ACT, OBSCURING VISION 85610 BLEPHAROCHA 06-23-2014 KANCHAN PERSON LASIS V431 LENS 06-23-2014 KANCHAN PERSON REPLACED BY OTHER MEANS 496 CHRONIC 05-08-2014 [facility] OBSTRUCTION NEC 86239 OBSTRUCTIVE 03-17-2014 [facility] CH[facility] N EMERGENCY BRONCHITIS PHYS WITH EXACERBATIO N 2410 NONTOXIC 02-25-2014 [facility] UNINODULAR REGIONAL GOITER MEDICAL CENTE 30016 OCCLUSION&S 12-31-2013 [facility] TENOS REGIONAL CAROTID ART MEDICAL W/O CENTE MENTION INFARCT 17160 DYSPHAGIA 12-31-2013 [facility] UNSPECIFIED REGIONAL MEDICAL CENTE 7231 CERVICALGIA 12-30-2013 [facility] REGIONAL PHYSICIAN PRA 7245 UNSPECIFIED 12-30-2013 [facility] BACKACHE REGIONAL PHYSICIAN PRA 7820 DISTURBANCE 12-30-2013 [facility] OF SKIN REGIONAL SENSATION PHYSICIAN PRA 83030 PAIN IN 12-27-2013 [facility] [place] [facility] PELVIC REGION AND THIGH 7242 LUMBAGO 12-27-2013 [facility] [place] [facility] 2724 OTHER AND 12-13-2013 [facility] UNSPECIFIED REGIONAL PHYSICIAN HYPERLIPIDE PRA MJ 79726 OTHER 12-13-2013 [facility] CHRONIC REGIONAL PAIN PHYSICIAN PRA V163 FAMILY 12-13-2013 [facility] HISTORY OF REGIONAL MALIGNANT PHYSICIAN NEOPLASM OF PRA BREAST 486 PNEUMONIA, 12-06-2013 [facility] ORGANISM N EMERGENCY UNSPECIFIED SERVI 5119 UNSPECIFIED 12-06-2013 [facility] PLEURAL N EMERGENCY EFFUSION SERVI 92449 ACUTE 12-06-2013 [facility] FAILURE SERVI 62907 SHORTNESS 12-06-2013 [facility] OF BREATH FIRE EMS 49278 CHEST PAIN 12-06-2013 [facility] UNSPECIFIED FIRE EMS 16431 HYPOXEMIA 12-06-2013 [facility] N EMERGENCY SERVI 22256 LEUKOCYTOSI 12-04-2013 KOUNS AGUSTÍN S UNSPECIFIED 5180 PULMONARY 12-03-2013 [facility] COLL[facility]SE RADIOLOGY GROUP P 68485 WHEEZING 12-03-2013 [facility] N EMERGENCY SERVI 4660 ACUTE 11-26-2013 [facility] BRONCHITIS N EMERGENCY SERVI 91551 OTHER 08-21-2013 [facility] SPECIFIED REGIONAL CIRCULATORY MEDICAL SYSTEM CENTE DISORDERS 55229 OTHER 08-21-2013 [facility] MALAISE AND REGIONAL FATIGUE MEDICAL CENTE V5869 LONG-TERM 08-21-2013 [facility] (CURRENT) REGIONAL USE OF MEDICAL OTHER CENTE MEDICATIONS 7243 SCIATICA 07-04-2013 [facility] N EMERGENCY PHYS 48637 OBESITY, 03-30-2013 ARNOLD OMAR UNSPECIFIED 72167 INSOMNIA 03-30-2013 ARNMONICA OMAR UNSPECIFIED 3669 UNSPECIFIED 03-14-2013 [facility] CATARACT H ANESTHESIA [facility] V7281 PRE-OPERATI 03-14-2013 [facility] MAY REGIONAL CARDIOVASCU MEDICAL LAR CENTE EXAMINATION 3679 UNSPECIFIED 02-13-2013 KANCHAN PERSON DISORDER OF REFRACTION& [place] [address] UNSPECIFIED 02-05-2013 [facility] [place] [facility] CONSTIPATIO N 7213 LUMBOSACRAL 01-11-2013 [facility] SPONDYLOSIS ASSOCIAT WITHOUT MYELOPATHY 77840 ASTHMA 12-27-2012 ARNOLD OMAR UNSPECIFIED WITH STATUS ASTHMATICUS 7823 EDEMA 12-27-2012 DOTTIEOLD OMAR 02376 DEGEN 12-06-2012 [facility]/LUMB [facility] OSACRAL INTERVERTEB RAL DISC 7384 ACQUIRED 12-06-2012 [place] [facility] SPONDYLOLIS SERV THESIS FOUNDATIO 7210 CERVICAL 12-03-2012 [facility] [place] SPONDYLOSIS RADIOLOGY WITHOUT MYELOPATHY 7224 DEGENERATIO 12-03-2012 [facility] [place] N OF RADIOLOGY CERVICAL INTERVERTEB RAL DISC 7230 SPINAL 12-03-2012 [facility] STENOSIS IN REGIONAL CERVICAL MEDICAL REGION CENTE 83785 OSTEOARTHRO 11-23-2012 ALIX NELSON S INVLV MX SITES [place] [address] OBSTRUCTIVE 10-30-2012 [facility] [place] APNEA PULMONARY M 71879 ACUTE AND 10-26-2012 [facility] CHRONIC REGIONAL RESPIRATORY MEDICAL FAILURE CENTE 7862 COUGH 10-25-2012 [facility] 68142 OTHER 10-25-2012 [facility] [place] NONSPECIFIC RADIOLOGY ABNORMAL FINDING OF LUNG FIELD 32818 SPONDYLOSIS 09-28-2012 [facility] WITH SERV MYELOPATHY [facility] THORACIC REGION 06631 INTERVERT 09-28-2012 [facility] LUMB DISC SERV D/O FOUNDATIO W/MYELOPATH Y LUMB REGION 7244 THORACIC/PROSPER 09-28-2012 [facility] NEURITIS/RA DICULITIS UNSPEC 43175 CLOSED 09-28-2012 [facility] , LUMBAR VERTEBRA 3384 CHRONIC 09-25-2012 [facility] SYNDROME 02519 PAIN IN 09-25-2012 [facility] UNSPEC[facility] 7291 UNSPECIFIED 09-25-2012 [facility] MYOSITIS 34256 OTHER 08-07-2012 [facility] [place] [address] ALTERED 08-07-2012 [facility] M[facility]AL SERV STATUS FOUNDATIO 7202 SACROILIITI 05-01-2012 [facility] S NOT MAZLOOMD ELSEWHERE CLASSIFIED 44481 SPASM OF 05-01-2012 [facility] MUSCLE MAZLOOMD 1101 DERMATOPHYT 04-19-2012 DO [place] OF PATHOLOGY NAIL SERVICES 7295 PAIN IN 03-08-2012 [facility] SOFT FIRE EMS TISSUES OF LIMB 52805 CONJUNCTIVA 03-02-2012 [facility] 99875 ACUTE 02-25-2012 [facility] LARY[facility], EMERGENCY WITHOUT SERVICES MENTION OF OBSTRUCTIO 82357 NUCLEAR 02-07-2012 [facility]ER[facility] 62518 OTHER 02-07-2012 [facility] ALLERGIC CONJUNCTIVI TIS 28309 UNSPECIFIED 11-01-2011 ALIX NELSON SLEEP APNEA 3278 OTHER 08-20-2011 [facility] ORGANIC REGIONAL SLEEP MEDICAL DISORDERS CENTE 62599 TRANSIENT 08-20-2011 [facility] ALTERATION REGIONAL OF MEDICAL AWARENESS CENTE 50815 METABOLIC 07-12-2011 [facility] ENCEPHALOPA REGIONAL THY FAMILY PRACTI 58207 OTHER CHEST 07-12-2011 [facility] PAIN [facility] SERVICES 93601 NAUSEA WITH 07-12-2011 [facility] VOMITING [facility]Y SERVICES V5882 ENCOUNTER 06-22-2011 [facility] [place] FITTING&ADJ RADIOLOGY NON-VASCULA R CATHETER NEC 93610 ACUTE 06-20-2011 [facility] RESPIRATORY REGIONAL FAILURE MEDICAL FLW TRAUMA CENTE & SURGERY V7651 SPECIAL 06-20-2011 [facility] SCREENING IVAN FOR MALIGNANT NEOPLASMS COLON 6218 OTHER 06-16-2011 [facility] DISORDERS ASSOCIAT OF UTERUS NEC 6271 POSTMENOPAU 06-16-2011 [facility] STEPHEN REGIONAL BLEEDING MEDICAL CENTE V016 CONTACT 06-13-2011 [facility] WITH OR REGIONAL EXPOSURE TO MEDICAL VENEREAL CENTE DISEASES V7389 SPECIAL 06-13-2011 [facility] SCREENING REGIONAL EXAMINATION [place] [address] UNSPECIFIED 06-09-2011 [facility] VULVOVAGINI TIS 6259 UNSPEC 06-09-2011 [facility] W/FEMALE GENITAL ORGANS V762 SCREENING 06-09-2011 PATHOLOGY & FOR CYTOLOGY MALIGNANT LAB NEOPLASM OF THE CERVIX 4619 ACUTE 01-31-2011 ARNOLD OMAR SINUSITIS, UNSPECIFIED 5939 UNSPECIFIED 07-09-2010 ARNOLD OMAR DISORDER OF KIDNEY AND URETER 5990 URINARY 07-04-2010 [facility] TRACT [facility] INFECTION SERVICES SITE NOT SPECIFIED 8460 SPRAIN AND 07-04-2010 [facility] STRAIN OF EMERGENCY LUMBOSACRAL SERVICES E9289 UNSPECIFIED 07-04-2010 [facility] ACCIDENT [facility] 94990 ABDOMINAL 08-13-2009 [facility] PAIN, REGIONAL EPIGASTRIC MEDICAL CENTE Procedures Procedure DOS Code Location Performer Comment RADEX 43608 [facility] L[facility]IAN SPINE 7 ORTHOPEDI LUMBOSACR C AL ASSOCIAT MINIMUM 4 VIEWS INJECTION 21877 [facility] RICE 7 ORTHOPEDI SINGLE/ML C T TRIGGER ASSOCIAT POINT 1/2 MUSCLES MRI 09838 [facility] SPINAL 7 ORTHOPEDI CANAL C LUMBAR ASSOCIAT W/O CONTRAST MATERIAL RADEX 56222 [facility] DIAZ SPINE 7 ORTHOPEDI LUMBOSACR C AL 2/3 ASSOCIAT VIEWS DRUG TEST 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 [address] REZA CORPORATI CORPORATI METH P ON ON DAY 15-21 DR HERNÁNDEZ OBSERVATI 81678 [facility] [place] ON CARE 7 REGIONAL DISCHARGE PHYSICIAN PRA MANAGEMEN T INITIAL 12075 [facility] [place] OBSERVATI 7 REGIONAL ON PHYSICIAN CARE/DAY PRA 50 MINUTES CHLORAMPH 98340 MARK AEGLENKA ENICOL 7 SCIENCES SCIENCES CORPORATI CORPORATI ON ON COL-CHR/M 46146 MARK FLORES S NONDRUG 7 SCIENCES SCIENCES ANALYTE CORPORATI CORPORATI KRISTI ON ON QUAL/SAUL EA SPEC DRUG TST G0483 MARK FLORES DEFINITV [address] ID CORPORATI CORPORATI METH P ON ON DAY 22/[place] [address] AEGIS MARK QUININE 7 SCIENCES SCIENCES CORPORATI CORPORATI ON ON COMPREHEN 61474 [facility] SIVE 7 REGIONAL REGIONAL METABOLIC MEDICAL MEDICAL PANEL JINNY STEARNS RADIOLOGI 37861 [facility] C EXAM 7 [facility] CHEST 2 MEDICAL MEDICAL VIEWS JINNY STEARNS FRONTAL&L ATERAL LIPID 17288 [facility] PANEL 7 [facility] MEDICAL MEDICAL JINNY STEARNS PHRM Q0514 [facility] DIS[facility]IN 7 PHARMACY PHARMACY G FEE #702 #702 INHALATIO N RX; PER 90 DAYS ALBUTEROL J7613 [facility] INHAL 7 PHARMACY PHARMACY NON-CP #702 #702 PROD THRU DME U DOSE 1 MG US BREAST 72605 [facility] UNI REAL 7 N TIME RADIOLOGY WITH GROUP P IMAGE COMPLETE DIAGNOSTI G0204 [facility] C 7 N MAMMOGRAP RADIOLOGY HY INCL GROUP P CAD WHEN PERF; BILAT ECG 56688 PATRICIA THEODORE WAES[place] ROUTINE 7 MD ECG CONSULTIN W/LEAST G SRV 12 LDS I&R ONLY AMB A0427 [facility] SERVICE 7 R FIRE R FIRE ALS EMS EMS EMERGENCY TRANSPORT LEVEL 1 GROUND A0425 [facility] MILEAGE 7 R FIRE R FIRE [place] [address] CHIPPS TANOUS, SURG 7 NOAH & JR PATHOLOGY DUBILIER GROSS&JASKARAN ROSCOPIC EXAM IADNA 39664 LABORATOR LABORATOR TRICHOMON 7 Y KARTHIK OF Y KARTHIK OF RM RM VAGINALIS H H AMPLIFIED PROBE TECH SCREENING G0202 [facility] 7 REGIONAL REGIONAL MAMMOGRAP MEDICAL MEDICAL HY ALEXANDRA CENTE CENTE INCL CAD WHEN PERFORMD IADNA 94564 LABORATOR LABORATOR NEISSERIA 7 Y KARTHIK OF Y KARTHIK OF RM RM GONORRHOE [place] [address] [facility] TRANSVAGI 7 HEALTH OF NAL [place] R IADNA 55485 LABORATOR LABORATOR CHLAMYDIA 7 Y KARTHIK OF Y KARTHIK OF RM RM TRACHOMAT H H IS AMPLIFIED PROBE TQ ENDOMETRI 23233 [facility] AL BX 7 HEALTH OF W/WO ENDOCERVI [place] X BX W/O R DILAT SPX DXA BONE 90792 [facility] DENSITY 7 REGIONAL REGIONAL STUDY [...] LAB GROUND A0425 YELLOW YELLOW MILEAGE 6 [employer] PER E SYSTEMS E SYSTEMS STATUTE IN IN MILE AMB A0427 YELLOW YELLOW SERVICE 6 [facility] ALS E SYSTEMS E SYSTEMS EMERGENCY IN IN TRANSPORT LEVEL 1 BASIC 97544 [facility] METABOLIC 6 [facility] CALCIUM TOTAL URNLS DIP [address] [facility] [address] [facility] LET REAGENT AUTO MICROSCOP Y BLOOD 65380 [facility] COUNT 6 [facility] AUTO&AUTO DIFRNTL WBC DRUG TEST G0479 [facility] [address] [place] [address] NSTRUMENT ED CHEMISTRY ANLYZER NONINVASI 84065 [facility] VE 6 [facility] OXIMETRY MULTIPLE DETER CULTURE 10255 [facility] BACTERIAL 6 [facility] QUANTTATI VE COLONY COUNT URINE INJECTION J1040 [facility] [place] JAM 6 ORTHOPEDI METHYLPRE C DNISOLONE ASSOCIAT ACETATE 80 MG NJX 17187 [facility] [place] JAM DX/THER 6 ORTHOPEDI SBST C EPIDURAL/ ASSOCIAT SUBARACH LUMBAR/SA CRAL NERVE 16323 [facility] [place] CONDUCTIO 6 ORTHOPEDI N STUDIES C 7-8 ASSOCIAT STUDIES NEEDLE 06854 [facility] [place] EMG EA 6 ORTHOPEDI EXTREMTY C W/PARASPI ASSOCIAT NL AREA COMPLETE PRESSURIZ 95507 [facility] ED/NONPRE 6 REGIONAL REGIONAL SSURIZED MEDICAL MEDICAL INHALATIO CENTE CENTE N TREATMENT OBSERVATI 96773 [facility]ARE 6 REGIONAL YURY DISCHARGE PHYSICIAN PRA MANAGEMEN T GROUND A0425 [employer] [facility] [employer] AL MILEAGE 6 PER AMBULANCE AMBULANCE STATUTE SERVICE SERVICE MILE AMBULANCE A0428 [facility] PERLA CO SERVICE 6 BLS AMBULANCE AMBULANCE NONEMERGE SERVICE SERVICE NCY TRANSPORT PRESSURIZ 82073 [facility] ED/NONPRE 6 REGIONAL REGIONAL SSURIZED MEDICAL MEDICAL INHALATIO CENTE CENTE N TREATMENT THERAPEUT 07129 [facility] IC 6 REGIONAL REGIONAL PROPHYLAC MEDICAL MEDICAL TIC/DX CENTE CENTE INJECTION SUBQ/IM THERAPEUT 18945 [facility] IC 6 REGIONAL REGIONAL PROPHYLAC MEDICAL MEDICAL TIC/DX CENTE CENTE INJECTION SUBQ/IM CV STRS 34242 [facility] TST 6 REGIONAL REGIONAL XERS&/OR MEDICAL MEDICAL RX CONT CENTE CENTE [facility] G0378 [facility] OBSERVATI 6 REGIONAL REGIONAL ON MEDICAL [place]ICAL [place] [address] [facility] ANGIOGRAP 6 N CLARA HY NECK RADIOLOGY W/CONTRAS GROUP P T/NONCONT RAST DRUG TEST G0479 [facility]O 6 REGIONAL REGIONAL PRESUMP;I MEDICAL MEDICAL NSTRUMENT CENTE [place] [address] [facility] ANGIOGRAP 6 N N HY HEAD RADIOLOGY RADIOLOGY W/CONTRAS GROUP [place] [address] [facility] TROPONIN 6 REGIONAL REGIONAL QUANTITAT MEDICAL MEDICAL [facility] COLLECTIO 00212 [facility] N VENOUS 6 REGIONAL REGIONAL BLOOD MEDICAL MEDICAL VENIPUNCT [facility] [place] [address] [facility] THYROID 6 REGIONAL REGIONAL STIMULATI MEDICAL MEDICAL NG [facility] HORMONE TSH ECHO 96453 [facility] TTHRC R-T 6 REGIONAL REGIONAL 2D MEDICAL MEDICAL W/WOM-MOD [facility] E COMPL SPEC&COLR D PRESSURIZ 45242 [facility] ED/NONPRE 6 REGIONAL REGIONAL SSURIZED MEDICAL MEDICAL INHALATIO [facility] N TREATMENT NONINVASI 16575 [facility] VE 6 REGIONAL REGIONAL EAR/PULSE MEDICAL MEDICAL OXIMETRY [facility] SINGLE DETER MYOCARDIA 50528 [facility] L SPECT 6 REGIONAL REGIONAL MULTIPLE MEDICAL MEDICAL STUDIES [facility] MRI BRAIN 12052 [facility] BRAIN 6 REGIONAL REGIONAL STEM W/O MEDICAL MEDICAL CONTRAST [facility] MATERIAL ELECTROEN 24257 [facility] CEPHALOGR 6 REGIONAL REGIONAL AM W/REC MEDICAL MEDICAL AWAKE&ASL [facility] EEP TECHNETIU A9500 [facility] Hoffmann TC-99M 6 REGIONAL REGIONAL SESTAMIBI MEDICAL MEDICAL DX PER [facility] STUDY DOSE LIPID 41015 [facility] PANEL 6 REGIONAL REGIONAL MED[facility] INITIAL 77130 [facility] [place] OBSERVATI 6 REGIONAL TWA ON PHYSICIAN CARE/DAY PRA [address] [facility] 6 I JUSTIN I JUSTIN CARE/DAY 50 MINUTES AMB [id number] [facility] SERVICE 6 R FIRE R FIRE [facility] EMERGENCY TRANSPORT LEVEL 1 GROUND A0425 [facility] MILEAGE 6 R FIRE R [place] [address] [facility] HEAD/BRAI 6 REGIONAL REGIONAL N W/O MEDICAL MEDICAL CONTRAST [facility] MATERIAL RADIOLOGI 73486 [facility] C 6 REGIONAL REGIONAL EXAMINATI MEDICAL MEDICAL ON CHEST [facility] SINGLE VIEW FRONTAL ECG 38829 [facility] RISHMAWI ROUTINE 6 TIFF HAZ ECG EMERGENCY W/LEAST PHYS 12 LDS I&R ONLY COMPREHEN 57754 [facility] SIVE 6 REGIONAL REGIONAL METABOLIC MEDICAL MEDICAL PANEL [facility] CREATINE 16485 [facility] KINASE MB 6 REGIONAL REGIONAL FRACTION MEDICAL MEDICAL ONLY [facility] COLLECTIO 26487 [facility] N VENOUS 6 REGIONAL REGIONAL BLOOD MEDICAL MEDICAL VENIPUNCT [facility] [place] [address] [facility] TROPONIN 6 REGIONAL REGIONAL QUANTITAT MEDICAL MEDICAL [facility] BLOOD 51122 [facility] COUNT 6 REGIONAL REGIONAL COMPLETE MEDICAL MEDICAL AUTO&AUTO [facility] DIFRNTL WBC ECG 24627 [facility] ROUTINE 6 REGIONAL REGIONAL ECG MEDICAL MEDICAL W/LEAST CENTE CENTE 12 LDS TRCG ONLY W/O I&R NJX 06837 [facility] [place] [facility]/THER 6 ORTHOPEDI SBST C EPIDURAL/ ASSOCIAT SUBARACH LUMBAR/SA CRAL INJECTION J1040 [place] RICE JAM 6 ORTHOPEDI METHYLPRE C DNISOLONE ASSOCIAT ACETATE 80 MG POST-ADEOLA 90048 [facility] PERSON RACT 6 LASER SURGERY E-STIM G0283 [facility] 1/> AREAS 6 REGIONAL REGIONAL OTH THAN MEDICAL MEDICAL WND CARE CENTE CENTE PART TX PLAN APPL 10129 [facility] SOL[facility] MODALITY 6 REGIONAL REGIONAL 1/> AREAS MEDICAL MEDICAL TRACTION CENTE CENTE MECHANICA L THERAPEUT 30632 [facility] SOLANO IC PX 1/> 6 REGIONAL REGIONAL AREAS MEDICAL MEDICAL EACH 15 CENTE CENTE MIN EXERCISES DETERMINA 21999 KANCHAN PERSON TION 6 REFRACTIV E STATE OPHTHALMI 64259 KANCHAN Ferguson US DX 6 CORNEAL PACHYMETR Y UNI/BI E-STIM G0283 [facility] SOLANO 1/> AREAS 6 REGIONAL REGIONAL OTH THAN MEDICAL MEDICAL WND CARE CENTE CENTE PART TX PLAN THERAPEUT 92514 [facility] SOL[facility]O IC PX 1/> 6 REGIONAL REGIONAL AREAS MEDICAL MEDICAL EACH 15 CENTE CENTE MIN EXERCISES APPL 08177 [facility] MODALITY 6 REGIONAL REGIONAL 1/> AREAS MEDICAL MEDICAL TRACTION CENTE CENTE MECHANICA L INJECTION J1030 SHRAVAN MIN 6 ORTHOPEDI METHYLPRE C DNISOLONE ASSOCIAT ACETATE 40 MG ARTHROCEN 90653 SHRAVAN MIN TESIS 6 ORTHOPEDI ASPIR&/IN C J MAJOR ASSOCIAT JT/BURSA W/O US E-STIM G0283 [facility]USS SOL[facility]O 1/> AREAS 6 REGIONAL REGIONAL OTH THAN MEDICAL MEDICAL WND CARE CENTE CENTE PART TX PLAN APPL 71589 [facility] MODALITY 6 REGIONAL REGIONAL 1/> AREAS MEDICAL MEDICAL TRACTION CENTE CENTE MECHANICA L THERAPEUT 79703 [facility] SOLANO IC PX 1/> 6 REGIONAL REGIONAL AREAS MEDICAL MEDICAL EACH 15 CENTE CENTE MIN EXERCISES THERAPEUT 92137 R[facility] SOLANO IC PX 1/> 6 REGIONAL REGIONAL AREAS MEDICAL MEDICAL EACH 15 CENTE CENTE MIN EXERCISES APPL 74112 [facility] MODALITY 6 REGIONAL REGIONAL 1/> AREAS MEDICAL MEDICAL TRACTION CENTE CENTE MECHANICA L PHYSICAL 00483 [facility] THERAPY 6 REGIONAL REGIONAL EVALUATIO MEDICAL MEDICAL N CENTE CENTE APPL 40522 [facility] MODALITY 6 REGIONAL REGIONAL 1/> AREAS MEDICAL MEDICAL ELEC CENTE CENTE STIMJ EA 15 MIN MRI 09323 [facility] SPINAL 6 REGIONAL REGIONAL CANAL MEDICAL MEDICAL LUMBAR CENTE CENTE W/O & W/CONTR MATRL RADEX 37734 [facility] SPINE 6 REGIONAL REGIONAL LUMBOSACR MEDICAL MEDICAL AL CENTE CENTE MINIMUM 4 VIEWS COLLECTIO 98710 RUSS CLEMENS NINOSKA N VENOUS 6 REGIONAL BLOOD PHYSICIAN VENIPUNCT PRA URE COMPREHEN 65220 [facility] SIVE 6 REGIONAL REGIONAL METABOLIC MEDICAL MEDICAL PANEL CENTE CENTE LIPID 04576 [facility] PANEL 6 REGIONAL REGIONAL MEDICAL MEDICAL CENTE CENTE COLLECTIO 34873 RUSS SOLANO N VENOUS 5 REGIONAL REGIONAL BLOOD MEDICAL MEDICAL VENIPUNCT CENTE CENTE URE IMMUNOASS 70932 [facility] SOL[facility] AY 5 REGIONAL REGIONAL ANALYTE MEDICAL MEDICAL QUAL/SEMI CENTE CENTE QUAL MULTIPLE STEP SPECIAL 78295 [facility] TANOUS, STAIN 5 JR EDW GROUP 1 PATHOLOGY MICROORGA ASSOCIAT NISMS I&R SPCL STN 49605 [facility] TANOUS, 2 I&R 5 JR EDW EXCPT PATHOLOGY MICROORG/ ASSOCIAT ENZYME/IM CYT COLONOSCO 65899 THE RUSS AMBERENAMIN PY 5 CLINIC IVAN W/BIOPSY SINGLE/[place] [address] [facility] TANOUS, SURG 5 JR EDW PATHOLOGY PATHOLOGY ASSOCIAT GROSS&JASKARAN ROSCOPIC EXAM ANES 56810 [facility] TERRY LOWER 5 LTH DICK INTESTINE ANESTHESI A PSC ENDOSCOPY DISTAL DUODEN[place] EGD 48588 THE RUSS CLARKENAMIN TRANSORAL 5 CLINIC IVAN BIOPSY SINGLE/[place] [address] R[facility] SOL[facility]O GAMMAGLOB 5 REGIONAL REGIONAL ULIN IGA MEDICAL MEDICAL IGD IGG CENTE [facility] CENTERE IGM EACH COLLECTIO 68008 [facility] N VENOUS 5 REGIONAL [facility] BLOOD [facility] MED[facility] VENIPUNCT [facility] [place] [address] R[facility] SOLANO MULT STEP 5 REGIONAL REGIONAL METHOD MEDICAL MEDICAL NOS EACH [facility] ORGANISM BLOOD 93360 [facility] SOL[facility] COUNT 5 REGIONAL REGIONAL COMPLETE MEDICAL MEDICAL AUTO&AUTO [facility] [place] [address] [facility] SOL[facility] LIPASE 5 REGIONAL [facility] MEDICAL MEDICAL [facility] CUL BACT 44585 [facility] SOLANO STOOL 5 REGIONAL REGIONAL AEROBIC MEDICAL MEDICAL ADDL [facility] PATHOGENS &ID EA RADIOLOGI 62322 RUSS SOLANO C EXAM 5 REGIONAL REGIONAL CHEST 2 MEDICAL MEDICAL VIEWS [facility] FRONTAL&[place] [address] RUSS SOLANO CLOSTRIDI 5 REGIONAL REGIONAL UM MEDICAL MEDICAL DIFFICILE [facility] TOXIN COMPREHEN 32259 RUSS SOLANO SIVE 5 REGIONAL REGIONAL METABOLIC MEDICAL MEDICAL PANEL [facility] ANESTHESI 78734 [facility] KAYLEN A EYE 5 LTH CADENCE LENS ANESTHESI SURGERY A PSC CATARACT 52640 KANCHAN HEMPHILL RAZA REMOVAL 5 INSERTION OF LENS ECG 56540 RUSS DAVISVLIJOSÉ LUIS ROUTINE 5 REGIONAL YURY ECG MEDICAL W/LEAST CENTE 12 LDS I&R ONLY POST-ADEOLA 77524 KANCHAN PERSON RACT 5 LASER SURGERY OPH BMTRY 84028 KANCHAN PERSON US 5 ECHOGRAPY A-SCAN IO LENS PWR GUY PRTBLE E0431 [facility] GASEOUS 5 INC INC O2 SYS RENT; FLWMTR HUMIDFR&M ASK O2 CONC 1 E1390 [facility] DEL PORT 5 INC INC 85%/>02 CONC AT PRSC FLW RATE O2 CONC 1 E1390 [facility] DEL PORT 5 INC INC 85%/>02 CONC AT PRSC FLW RATE PRTBLE E0431 [facility] GASEOUS 5 INC INC O2 SYS RENT; FLWMTR HUMIDFR&M ASK [facility]OSP[facility] 65851 [facility] DISCHARGE 5 DAY MANAGEMEN T 30 MIN/< INITIAL 43316 [facility] DAVE [facility] HOSPITAL 5 CARE/DAY 70 MINUTES PRTBLE E0431 [facility] GASEOUS 5 INC INC O2 SYS RENT; FLWMTR HUMIDFR&M ASK O2 CONC 1 E1390 [facility] DEL PORT 5 INC INC 85%/>02 CONC AT PRSC FLW RATE US SOFT 96983 RUSS RUSS TISSUE 4 REGIONAL REGIONAL HEAD & MEDICAL MEDICAL NECK REAL CENTE CENTE TIME IMGE DOCM PRTBLE E0431 [facility] GASEOUS 4 INC INC O2 SYS RENT; FLWMTR HUMIDFR&M ASK O2 CONC 1 E1390 [facility] DEL PORT 4 INC INC 85%/>02 CONC AT PRSC FLW RATE O2 CONC 1 E1390 [facility] [place] PORT 4 INC INC 85%/>02 CONC AT PRSC FLW RATE PRTBLE E0431 [facility] GASEOUS 4 INC INC O2 SYS RENT; FLWMTR HUMIDFR&M ASK DUPLEX 40218 [facility] RUSS SCAN 4 REGIONAL REGIONAL EXTRACRAN MEDICAL MEDICAL IAL ART CENTE CENTE COMPL BI STUDY CT LUMBAR 55844 [facility] [place] SPINE 4 RADIOLOGY LD IV ALL W/O CONTRAST MATERIAL RADEX 39053 [facility] [place] MAT SHOULDER 4 RADIOLOGY COM[place] [address] [place] [address] [facility] [place] HEAD/BRAI 4 RADIOLOGY LD IV ALL N W/O CONTRAST [address] [address] LOWER 74248 [facility] [place] MAT EXTREMITY 4 RADIOLOGY [...] INHALATIO N RX; PER 30 DAYS LIPID 30997 [facility] PANEL 4 [facility] REGIONAL MEDICAL MEDICAL CENTE JAMMIEE COMPREHEN 91762 [facility] SIVE 4 [facility] MEDICAL MEDICAL PANEL [facility] O2 CONC 1 E1390 [facility] [place] 4 INC INC 85%/>02 CONC AT [facility] FLW RATE PRTBLE E0431 [facility] GASEOUS 4 INC INC O2 SYS RENT; FLWMTR [facility] 35901 [facility] AGUSTÍN [facility] DISCHARGE 4 DAY MANAGEMEN T 30 MIN/< AMB A0427 [facility] SERVICE 4 R FIRE R FIRE [facility] EMERGENCY TRANSPORT LEVEL 1 GROUND A0425 [facility]RE [facility] STATUTE MILE CRITICAL 42366 [facility] 4 TIFF RYA ILL/INJUR EMERGENCY ED SERVI PATIENT INIT 30-74 MIN SBSQ 60324 [facility] AGUSTÍN [facility] 4 CARE/DAY 25 MINUTES INITIAL 43657 BO[facility] AGUSTÍN [facility] 4 CARE/DAY 50 MINUTES CRITICAL 11807 [facility] 4 TIFF RYA ILL/INJUR EMERGENCY ED SERVI PATIENT INIT 30-74 MIN ECG 69516 [facility] ROUTINE 4 TIFF RYA ECG EMERGENCY W/LEAST SERVI 12 LDS I&R ONLY RADIOLOGI 68303 FOUND[facility] BROWN MAR C 4 N EXAMINATI [...] N RX; PER 30 DAYS PRTBLE E0431 [facility] GASEOUS 4 INC INC O2 SYS RENT; FLWMTR HUMIDFR&M ASK O2 CONC 1 E1390 [facility] PORT 4 INC INC 85%/>02 CONC AT PRSC FLW RATE O2 CONC 1 E1390 [facility] PORT 4 INC INC 85%/>02 CONC AT PRSC FLW RATE PRTBLE E0431 [facility] GASEOUS 4 INC INC O2 SYS [...] DOSE 1 MG O2 CONC 1 E1390 [facility] PORT 4 INC INC 85%/>02 CONC AT PRSC FLW RATE PRTBLE E0431 [facility] GASEOUS 4 INC INC O2 SYS RENT; FLWMTR HUMIDFR&M ASK LIPID 09104 [facility] RUSS PANEL 4 REGIONAL REGIONAL MEDICAL MEDICAL CENTE CENTE BLOOD 85591 RUSS RUSS COUNT 4 REGIONAL REGIONAL SMEAR MEDICAL MEDICAL MCRSCP CENTE CENTE W/MNL DIFRNTL WBC COUNT COMPREHEN 26288 [facility] SOL[facility]O SIVE 4 REGIONAL REGIONAL METABOLIC MEDICAL MEDICAL PANEL CENTE CENTE BLOOD 22762 RUSS RUSS COUNT 4 REGIONAL REGIONAL COMPLETE MEDICAL MEDICAL [place] [address] [facility] THYROID [address] [facility] JINNY STEARNS HORMONE TSH ALBUTEROL J7613 RELIANT RELIANT INHAL 4 PHARMACY PHARMACY NON-CP SERVICES SERVICES PROD THRU DME U DOSE 1 MG ADMN SET A7005 [facility] W/SM VOL 4 INC INC NONFILTR NEBULIZR NON-DISPB L ARFORMOTE J7605 RELIANT RELIANT ROL INHAL 4 PHARMACY PHARMACY JOHN SERVICES SERVICES NONCOMP UNIT DOSE 15 MG PHRM Q0513 RELIANT RELIANT DISPENSIN 4 PHARMACY PHARMACY G FEE SERVICES SERVICES INHALATIO N RX; PER 30 DAYS PRTBLE E0431 [facility] GASEOUS 4 INC INC O2 SYS RENT; FLWMTR HUMIDFR&M ASK O2 CONC [address] [facility] 4 INC INC 85%/>02 CONC AT [...] N RX; PER 30 DAYS PRTBLE E0431 [facility] GASEOUS 4 INC INC O2 SYS RENT; FLWMTR HUMIDFR&M ASK O2 CONC 1 E1390 [facility] DEL PORT 4 INC INC 85%/>02 CONC [place] PRSC [place]W [place]ATE CT LUMBAR 57091 [facility] [place] HEATH JAM SPINE 4 RADIOLOGY W/O CONTRAST MATERIAL O2 CONC 1 E1390 [facility] DEL PORT 4 INC INC 85%/>02 CONC AT PRSC FLW RATE PRTBLE E0431 [facility] GASEOUS 4 INC INC O2 SYS RENT; FLWMTR HUMIDFR&M ASK PRTBLE E0431 [facility] GASEOUS 4 INC INC O2 SYS RENT; FLWMTR HUMIDFR&M ASK O2 CONC 1 E1390 [facility] DEL PORT 4 INC INC 85%/>02 CONC AT PRSC FLW RATE O2 CONC 1 E1390 [facility] [place] 4 INC INC 85%/>02 CONC AT PRSC FLW RATE PRTBLE E0431 [facility] GASEOUS 4 INC INC O2 SYS RENT; FLWMTR HUMIDFR&M ASK NEBULIZER E0570 [facility] WITH 4 INC INC COMPRESSO R ECG 85979 RUSS SEALS AGUSTÍN ROUTINE 4 REGIONAL ECG MEDICAL W/LEAST CENTE 12 LDS I&R ONLY ANESTHESI 28183 [facility] HULZEBOS A EYE 4 LTH RYA LENS ANESTHESI SURGERY A PSC CATARACT 19888 KANCHAN HEMPHILL RAZA REMOVAL 4 INSERTION OF LENS O2 CONC 1 E1390 [facility] DEL PORT 4 INC INC 85%/>02 CONC AT PRSC FLW RATE PRTBLE E0431 [facility] GASEOUS 4 INC INC O2 SYS RENT; FLWMTR HUMIDFR&M ASK BASIC 12746 [facility] METABOLIC 4 REGIONAL REGIONAL PANEL MEDICAL MEDICAL CALCIUM CENTE JAMMIEE TOTAL COLLECTIO 69692 [facility] SOL[facility] N VENOUS 4 REGIONAL REGIONAL BLOOD MEDICAL MEDICAL VENIPUNCT CENTE JAMMIEE URE BLOOD 51574 RUSS RUSS COUNT 4 REGIONAL REGIONAL COMPLETE MEDICAL MEDICAL AUTO&AUTO CENTE CENTE DIFRNTL WBC NEBULIZER E0570 [facility] WITH 3 INC INC COMPRESSO R TENS E0730 EMPI INC EMPI INC DEVICE 3 4/MORE LEADS MULTI NERVE STIMULATI ON OPH BMTRY 08013 KANCHAN HEMPHILL RAZA US 3 ECHOGRAPY A-SCAN IO LENS PWR GUY PRTBLE E0431 [facility] GASEOUS 3 INC INC O2 SYS RENT; FLWMTR HUMIDFR&M ASK O2 CONC 1 E1390 [facility] DEL PORT 3 INC INC 85%/>02 CONC AT PRSC FLW RATE ARFORMOTE J7605 RELIANT RELIANT ROL INHAL 3 PHARMACY PHARMACY JOHN SERVICES SERVICES NONCOMP UNIT DOSE 15 MG RADEX ABD 64682 [facility] [place] [facility] COMPL 3 RADIOLOGY CLARA AQT ABD W/S/E/D VIEWS 1 VIEW CH ALBUTEROL J7613 RELIANT RELIANT INHAL 3 PHARMACY PHARMACY NON-CP SERVICES SERVICES PROD THRU DME U DOSE 1 MG PHRM Q0513 RELIANT RELIANT DISPENSIN 3 PHARMACY PHARMACY G FEE SERVICES SERVICES INHALATIO N RX; PER 30 DAYS ADMN SET A7003 [facility] SM VOL 3 INC INC NONFILTR PNEUMAT NEBULIZR DISPBL NEBULIZER E0570 [facility] WITH 3 INC INC COMPRESSO R ARFORMOTE J7605 RELIANT RELIANT ROL INHAL 3 PHARMACY PHARMACY JOHN SERVICES SERVICES NONCOMP UNIT DOSE 15 MG THERAPEUT 68125 SHRAVAN NEVILLEU GRE IC PX 1/> 3 ORTHOPEDI AREAS C EACH 15 ASSOCIAT MIN EXERCISES SELF-CARE 04992 SHRAVAN NEVILLEU GRE /HOME 3 ORTHOPEDI MGMT [...] N RX; PER 30 DAYS PRTBLE E0431 [facility] GASEOUS 3 INC INC O2 SYS RENT; FLWMTR HUMIDFR&M ASK THERAPEUT 65713 SHRAVAN NEVILLEU GRE IC PX 1/> 3 ORTHOPEDI AREAS C EACH 15 ASSOCIAT MIN EXERCISES E-STIM G0283 SHRAVAN NEVILLEU GRE 1/> AREAS 3 ORTHOPEDI OTH THAN C WND CARE ASSOCIAT PART TX PLAN O2 CONC 1 E1390 [facility] DEL PORT 3 INC INC 85%/>02 [facility]C AT [facility] FLW RATE E-STIM G0283 SHRAVAN NEVILLEU GRE 1/> AREAS 3 ORTHOPEDI OTH THAN C WND CARE ASSOCIAT PART TX PLAN THERAPEUT 85767 SHRAVAN BUSH GRE IC PX 1/> 3 ORTHOPEDI AREAS C EACH 15 ASSOCIAT MIN EXERCISES PHYSICAL 47369 SHRAVAN NORMAN THERAPY 3 ORTHOPEDI EVALUATIO C N ASSOCIAT E-STIM G0283 SHRAVAN BUSH GRE 1/> AREAS 3 ORTHOPEDI OTH THAN C WND CARE ASSOCIAT PART TX PLAN THERAPEUT 64811 SHRAVAN BUSH GRE IC PX 1/> 3 ORTHOPEDI AREAS C EACH 15 ASSOCIAT MIN EXERCISES ADMN SET A7005 [facility] W/SM VOL 3 INC INC NONFILTR NEBULIZR NON-DISPB L ALBUTEROL J7613 RELIANT RELIANT INHAL 3 PHARMACY PHARMACY NON-CP SERVICES SERVICES PROD THRU DME U DOSE 1 MG PHRM Q0513 RELIANT RELIANT DISPENSIN 3 PHARMACY PHARMACY G FEE SERVICES SERVICES INHALATIO N RX; PER 30 DAYS NEBULIZER E0570 [facility] WITH 3 INC INC COMPRESSO R PRTBLE E0431 [facility] GASEOUS 3 INC INC O2 SYS RENT; FLWMTR HUMIDFR&M ASK O2 CONC 1 E1390 [facility] DEL PORT 3 INC INC 85%/>02 CONC AT PRSC FLW RATE RADEX 88513 [facility] SPINE [facility] MINIMUM 4 VIEWS MRI 28680 [facility] [place] [facility] SPINAL 3 RADIOLOGY CLARA CANAL CERVICAL W/O CONTRAST MATRL ALBUTEROL J7613 RELIANT RELIANT INHAL 3 PHARMACY PHARMACY NON-CP SERVICES SERVICES PROD THRU DME U DOSE 1 MG PHRM Q0513 RELIANT RELIANT DISPENSIN 3 PHARMACY PHARMACY G FEE SERVICES SERVICES INHALATIO N RX; PER 30 DAYS NEBULIZER E0570 [facility] WITH 3 INC INC COMPRESSO R PRTBLE E0431 [facility] GASEOUS 3 INC INC O2 SYS RENT; FLWMTR HUMIDFR&M ASK O2 CONC [address] [facility] 3 INC INC 85%/>02 CONC AT [facility] FLW RATE ALBUTEROL J7613 RELIANT RELIANT INHAL 3 PHARMACY PHARMACY NON-CP SERVICES SERVICES PROD THRU DME U DOSE 1 MG PHRM Q0513 RELIANT RELIANT DISPENSIN 3 PHARMACY PHARMACY G FEE SERVICES SERVICES INHALATIO N RX; PER 30 DAYS INITIAL [address] MACK CARE/DAY PULMONARY 70 M MINUTES SBSQ 68569 [facility] 3 ADULT RAE CARE/DAY PRIMARY 35 CARE CLI MINUTES SBSQ 62835 [facility] 3 ADULT RAE CARE/DAY PRIMARY 35 CARE CLI MINUTES SBSQ 40048 [facility] 3 ADULT RAE CARE/DAY PRIMARY 35 CARE CLI MINUTES SBSQ 59944 [facility] 3 ADULT RAE CARE/DAY PRIMARY 35 CARE CLI MINUTES SBSQ 67646 [facility] 3 ADULT RAE CARE/DAY PRIMARY 35 CARE CLI MINUTES ECG 95158 RUSS BRAR ROUTINE 3 REGIONAL YURY ECG MEDICAL W/LEAST CENTE 12 LDS I&R ONLY CT THORAX 66187 [facility] [place] W/O 3 RADIOLOGY CLARA CONTRAST MATERIAL RADIOLOGI 01959 [facility] [place] [facility] C EXAM 3 RADIOLOGY CLARA CHEST 2 VIEWS FRONTAL&L ATERAL NEBULIZER E0570 [facility] WITH 3 INC INC COMPRESSO R PRTBLE E0431 [facility] GASEOUS 3 INC INC O2 SYS RENT; FLWMTR HUMIDFR&M ASK O2 CONC 1 E1390 [facility] PORT 3 INC INC 85%/>02 CONC AT [facility] FLW RATE ALBUTEROL J7613 RELIANT RELIANT INHAL 3 PHARMACY PHARMACY NON-CP SERVICES SERVICES PROD THRU DME U DOSE 1 MG PHRM Q0513 RELIANT RELIANT DISPENSIN 3 PHARMACY PHARMACY G FEE SERVICES SERVICES INHALATIO N RX; PER 30 DAYS MRI 77449 [facility] 3 Y Y [facility] LUMBAR W/O CONTRAST MATERIAL CONTINUOU E0601 FERREIRA FERREIRA S 3 MEDICAL MEDICAL POSITIVE EQUIPMENT EQUIPMENT AIRWAY PRESSURE DEVICE NEBULIZER E0570 [facility] WITH 3 INC INC COMPRESSO R PRTBLE E0431 [facility] GASEOUS 3 INC INC O2 SYS RENT; FLWMTR HUMIDFR&M ASK O2 CONC 1 E1390 [facility] PORT 3 INC INC 85%/>02 CONC AT PRS FLW RATE ALBUTEROL J7613 RELIANT RELIANT INHAL 3 PHARMACY PHARMACY NON-CP SERVICES SERVICES PROD THRU DME U DOSE 1 MG PHRM Q0513 RELIANT RELIANT DISPENSIN 3 PHARMACY PHARMACY G FEE SERVICES SERVICES INHALATIO N RX; PER 30 DAYS CONTINUOU E0601 FERREIRA FERREIRA S 3 MEDICAL MEDICAL POSITIVE EQUIPMENT EQUIPMENT AIRWAY PRESSURE DEVICE NEBULIZER E0570 [facility] WITH 3 INC INC COMPRESSO R PHRM Q0513 RELIANT RELIANT DISPENSIN 3 PHARMACY PHARMACY G FEE SERVICES SERVICES INHALATIO N RX; PER 30 DAYS PRTBLE E0431 [facility] GASEOUS 3 INC INC O2 SYS RENT; FLWMTR HUMIDFR&M ASK ADMN SET A7003 [facility] SM VOL 3 INC INC NONFILTR PNEUMAT NEBULIZR DISPBL ALBUTEROL J7613 RELIANT RELIANT INHAL 3 PHARMACY PHARMACY NON-CP SERVICES SERVICES PROD THRU DME U DOSE 1 MG O2 CONC [address] [facility] 3 INC INC 85%/>[address] [place] [address] [place] HEAD/BRAI 3 MEDICAL FLA N W/O SERV CONTRAST FOUNDATIO MATERIAL ECG 62885 [place] GREG ZECHARIAH ROUTINE 3 MEDICAL ECG SERV W/LEAST FOUNDATIO 12 LDS I&R ONLY CONTINUOU E0601 FERREIRA FERREIRA S 3 MEDICAL MEDICAL POSITIVE EQUIPMENT EQUIPMENT AIRWAY PRESSURE DEVICE HUMDIFIR E0562 FERREIRA FERREIRA HEATED 3 MEDICAL MEDICAL USED EQUIPMENT EQUIPMENT W/POS ARWAY PRESSURE DEVICE NEBULIZER E0570 [facility] WITH 3 INC INC COMPRESSO R PRTBLE E0431 [facility] GASEOUS 3 INC INC O2 SYS RENT; FLWMTR HUMIDFR&M ASK O2 CONC 1 E1390 [facility] [place] PORT 3 INC INC 85%/>02 [...] EQUIPMENT EQUIPMENT AIRWAY PRESSURE DEVICE NEBULIZER E0570 [facility] WITH 3 INC INC COMPRESSO R PRTBLE E0431 [facility] GASEOUS 3 INC INC O2 SYS RENT; FLWMTR HUMIDFR&M ASK O2 CONC [address] [facility] 3 INC INC 85%/>02 CONC AT PRSC FLW RATE CONTINUOU E0601 FERREIRA FERREIRA S 3 MEDICAL MEDICAL POSITIVE EQUIPMENT EQUIPMENT AIRWAY PRESSURE DEVICE ALBUTEROL J7613 RELIANT RELIANT INHAL 3 PHARMACY PHARMACY NON-CP SERVICES SERVICES PROD THRU DME U DOSE 1 MG PHRM Q0513 RELIANT RELIANT DISPENSIN 3 PHARMACY PHARMACY G FEE SERVICES SERVICES INHALATIO N RX; PER 30 DAYS NEBULIZER E0570 [facility] WITH 3 INC INC COMPRESSO R PRTBLE E0431 [facility] GASEOUS 3 INC INC O2 SYS RENT; FLWMTR HUMIDFR&M ASK O2 CONC 1 E1390 [facility] PORT 3 INC INC 85%/>02 CONC AT PRSC FLW RATE CONTINUOU E0601 FERREIRA FERREIRA S 3 MEDICAL MEDICAL POSITIVE EQUIPMENT EQUIPMENT AIRWAY PRESSURE DEVICE HUMDIFIR E0562 FERREIRA FERREIRA HEATED 3 MEDICAL MEDICAL USED EQUIPMENT EQUIPMENT W/POS ARWAY PRESSURE DEVICE NEBULIZER E0570 [facility] WITH 3 INC INC COMPRESSO R CULTURE 73862 DO LEI FUNGI 3 PATHOLOGY PATHOLOGY DEFINITIV SERVICES SERVICES E ID EACH ORGANISM MOLD SPECIAL 56814 DO LEI STAIN 3 PATHOLOGY PATHOLOGY GROUP 1 SERVICES SERVICES MICROORGA NISMS I&[place] [address] DO ELI SURG 3 PATHOLOGY PATHOLOGY PATHOLOGY SERVICES SERVICES GROSS&JASKARAN ROSCOPIC EXAM CUL FNGI 99847 DO LEI MOLD/YEAS 3 PATHOLOGY PATHOLOGY T PRSMPTV SERVICES SERVICES ID SKN HAIR/NAIL ALBUTEROL J7613 RELIANT RELIANT INHAL 3 PHARMACY PHARMACY NON-CP SERVICES SERVICES PROD THRU DME U DOSE 1 MG ADMN SET A7005 [facility] W/SM VOL 3 INC INC NONFILTR NEBULIZR NON-DISPB L PHRM Q0513 RELIANT RELIANT DISPENSIN 3 PHARMACY PHARMACY G FEE SERVICES SERVICES INHALATIO N RX; PER 30 DAYS PRTBLE E0431 [facility] GASEOUS 3 INC INC O2 SYS RENT; FLWMTR HUMIDFR&M ASK O2 CONC 1 E1390 [facility] [place] 3 INC INC 85%/>02 CONC AT PRS FLW RATE INJECTION J3301 [facility] MAZLOOMDO 3 R OST RAZA TRIAMCINO MAZLOOMD LONE ACETONIDE NOS 10 MG NJX 23669 [facility] MAZLOOMDO DX/THER 3 R OST RAZA AGT PVRT MAZLOOMD FACET JT LMBR/SAC 1 LEVEL NJX 10367 [facility] MAZLOOMDO DX/THER 3 R OST RAZA AGT PVRT MAZLOOMD FACET JT LMBR/SAC 2ND LEVEL CONTINUOU E0601 FERREIRA FERREIRA S 3 MEDICAL MEDICAL POSITIVE EQUIPMENT EQUIPMENT AIRWAY PRESSURE DEVICE HUMDIFIR E0562 FERREIRA FERREIRA HEATED 3 MEDICAL MEDICAL USED EQUIPMENT EQUIPMENT W/POS ARWAY PRESSURE DEVICE ADMN SET A7003 [facility] SM VOL 3 INC INC NONFILTR PNEUMAT NEBULIZR DISPBL NEBULIZER E0570 [facility] WITH 3 INC INC COMPRESSO R ALBUTEROL J7613 RELIANT RELIANT INHAL 3 PHARMACY PHARMACY NON-CP SERVICES SERVICES PROD THRU DME U DOSE 1 MG PHARM G0333 RELIANT RELIANT DISPEN 3 PHARMACY PHARMACY FEE INHAL SERVICES SERVICES RX; INITIAL 30-DAY SUPPLY O2 CONC 1 E1390 [facility] DEL PORT 3 INC INC 85%/>02 CONC AT [facility] FLW RATE PRTBLE E0431 [facility] GASEOUS 3 INC INC O2 SYS RENT; FLWMTR HUMIDFR&M ASK AMB A0427 [facility] SERVICE 3 R FIRE R FIRE [facility] EMERGENCY TRANSPORT LEVEL 1 GROUND A0425 [facility] MILEAGE 3 R FIRE R FIRE PER EMS EMS STATUTE MILE RADIOLOGI 73295 RYAN PARSONS C 3 EMERGENCY EXAMINATI SERVICES ON CHEST SINGLE VIEW FRONTAL ECG 93392 RYAN PARSONS ROUTINE 3 EMERGENCY ECG SERVICES W/LEAST 12 LDS I&R ONLY RADIOLOGI 29688 RYAN TAPIA C EXAM 2 EMERGENCY CHEST 2 SERVICES VIEWS FRONTAL&L ATERAL O2 CONC 1 E1390 [facility] DEL PORT 2 HOME HOME 85%/>02 MEDICAL MEDICAL CONC AT EQUIPME EQUIPME [facility] FLW RATE CONTINUOU E0601 FERREIRA FERREIRA S 2 MEDICAL MEDICAL POSITIVE EQUIPMENT EQUIPMENT AIRWAY PRESSURE DEVICE PRTBLE E0431 TRAY FELIZ GASEOUS 2 HOME HOME O2 SYS MEDICAL MEDICAL RENT; EQUIPME EQUIPME FLWMTR HUMIDFR&M ASK HUMDIFIR E0562 FERREIRA FERREIRA HEATED 2 MEDICAL MEDICAL USED EQUIPMENT EQUIPMENT W/POS ARWAY PRESSURE DEVICE OPHTH 89872 PREMIER RADHA MAR MEDICAL 2 EYE CARE XM&EVAL [facility] COMPRE NEW PT 1/> VST DETERMINA 53750 PREMIER RADHA GÓMEZ TION 2 EYE CARE [...] POSITIVE EQUIPMENT EQUIPMENT AIRWAY PRESSURE DEVICE POLYSOM 17901 PATRICIA THEODORE THEODORE PATRICIA 6/>YRS 2 SLEEP CONSULTIN W/CPAP G SRV 4/> ADDL TITA ATTND POLYSOM 67357 RUSS SOLANO 6/>YRS 2 [facility] SLEEP MEDICAL MEDICAL W/CPAP CENTE CENTE 4/> [...] EQUIPMENT [place] [address] MANOOCHEH MAZLOOMDO JOINT 2 R OST RAZA ARTHRGRPH MAZLOOMD Y&/ANES/S TEROID W/LENNY POLYSOM 40335 PATRICIA THEODORE THEODORE PATRICIA 6/>YRS 2 SLEEP 4/> CONSULTIN ADDL G SRV TITA ATTND O2 CONC 1 E1390 TRAY ANTONIORELL DEL PORT 2 HOME HOME 85%/>02 MEDICAL MEDICAL CONC AT EQUIPME EQUIPME PRSC FLW RATE PRTBLE E0431 TRAY TRAY GASEOUS 2 HOME HOME O2 SYS MEDICAL MEDICAL RENT; EQUIPME EQUIPME FLWMTR HUMIDFR&M ASK POLYSOM 55313 RUSS SOLANO 6/>YRS 2 REGIONAL REGIONAL SLEEP 4/> MEDICAL MEDICAL ADDL JINNY STEARNS TITA ATTND O2 CONC 1 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 PORT 2 HOME HOME 85%/>02 MEDICAL MEDICAL CONC AT EQUIPME EQUIPME PRSC FLW RATE PRTBLE E0431 TRAY TRAY GASEOUS 2 HOME HOME O2 SYS MEDICAL MEDICAL RENT; EQUIPME EQUIPME FLWMTR HUMIDFR&M ASK OBSERVATI 83603 RUSS BRAR ON CARE 2 REGIONAL YURY DISCHARGE FAMILY PRACTI MANAGEMEN T ECG 25164 RUSS BRAR ROUTINE 2 REGIONAL YURY ECG FAMILY W/LEAST PRACTI 12 LDS I&R ONLY ECG 67849 RYAN CROWELL ROUTINE 2 EMERGENCY ECG SERVICES W/LEAST 12 LDS I&R ONLY RADIOLOGI 55007 [facility] [place] MCQU[facility]IDE C EXAM 2 RADIOLOGY CLARA CHEST 2 VIEWS FRONTAL&[place] [address] [facility] [place] MCQUAIDE HEAD/BRAI 2 RADIOLOGY CLARA N W/O CONTRAST MATERIAL AMB A0427 [facility] SERVICE 2 R FIRE R FIRE [facility] EMERGENCY TRANSPORT LEVEL 1 GROUND A0425 [facility] MILEAGE 2 R FIRE R FIRE PER EMS EMS STATUTE MILE INITIAL 16239 [facility]AR OBSERVATI 2 REGIONAL YURY ON FAMILY CARE/DAY PRACTI 50 MINUTES PRTBLE E0431 TRAY ANTONIORELL GASEOUS 2 HOME HOME O2 SYS MEDICAL MEDICAL RENT; EQUIPME EQUIPME FLWORR HUMIDFR&M ASK RADIOLOGI 59102 [facility] [place] EFFIE C 2 RADIOLOGY III OSCRATES EXAMINATI ON CHEST SINGLE VIEW FRONTAL O2 CONC 1 E1390 TRAY PATRICK PORT 2 HOME HOME 85%/>02 MEDICAL MEDICAL CONC AT EQUIPME EQUIPME PRSC FLW RATE WALKER E0143 TRAY FELIZ FOLDING 2 HOME HOME WHEELED MEDICAL MEDICAL ADJUSTABL EQUIPME EQUIPME E/FIXED HEIGHT COMMODE E0163 TRAY FELIZ CHAIR 2 HOME HOME MOBILE OR MEDICAL MEDICAL EQUIPME EQUIPME STATIONAR Y W/FIXED ARMS ANES 70643 [facility] BULMARO LOWER 2 LTH JR MAR INTESTINE ANESTHESI A PSC ENDOSCOPY DISTAL DUODENUM COLOREC G0121 MCMENAMIN MCMENAMIN CANCR 2 IVAN IVAN SCR; COLNSCPY NOT MEET HI RISK RADIOLOGI 22442 [facility] [place] EFFIE C 2 RADIOLOGY III SOCRATES EXAMINATI [place] [address] [facility] SURG 2 REGIONAL REGIONAL PATHOLOGY MEDICAL MEDICAL JAMMIEE JAMMIEE GROSS&JASKARAN ROSCOPIC EXAM SYPHILIS 85662 [facility] TEST 2 REGIONAL REGIONAL NON-TREPO MEDICAL MEDICAL NEMAL JINNY CENTE ANTIBODY QUAL COLLECTIO 56597 [facility] N VENOUS 2 REGIONAL REGIONAL BLOOD MEDICAL MEDICAL VENIPUNCT JINNY AGUDELOE URE ANTIBODY 84339 [facility] HERPES 2 REGIONAL REGIONAL SMPLX MEDICAL MEDICAL TYPE 1 CENTE JAMMIEE ACUTE 17819 [facility] HEPATITIS 2 REGIONAL REGIONAL PANEL MEDICAL MEDICAL JAMMIEE JAMMIEE IADNA 19601 MEDICAL MEDICAL CHLAMYDIA 2 [facility] TRACHOMAT IS AMPLIFIED PROBE TQ IADNA 41638 MEDICAL MEDICAL NEISSERIA 2 [facility]NO[facility] GONORRHOE AE AMPLIFIED PROBE TQ IADNA NOS 57020 MEDICAL MEDICAL 2 DIAGNOSTI DIAGNOSTI AMPLIFIED [facility] PROBE TQ EACH ORGANISM SCR G0145 PATHOLOGY PATHOLOGY CYTOPATH 2 & & CERV/VAG CYTOLOGY CYTOLOGY SCR LAB LAB AUTO&MNL RSCR PHYS IADNA 41937 MEDICAL MEDICAL CAIT 2 DIAGNOSTI DIAGNOSTI SPECIES [facility] AMPLIFIED PROBE TQ IADNA 43920 MEDICAL MEDICAL GARDNEREL 2 DIAGNOSTI DIAGNOSTI LA [facility] [place]AL[place]X 93592 HOLLIE NORMAN DX/THER 2 ALYSHA EVERETT MD [facility] EPIDURAL/ SUBARACH LUMBAR/SA CRAL INJECTION J1040 HOLLIE BUSH GRE 2 ALYSHA PEARSON MD [facility] DNISOLONE ACETATE 80 MG ORTHOTIC 48054 HOLLIE NORMAN MGMT&YASIR 2 ALYSHA LEMONS UXTShola DREW [facility] LXTR&/TRN K EA 15 INJECTION J3302 HOLLIE BUSH GRE 2 ALYSHA DUNCAN MD [facility] LONE DIACETATE PER 5 MG RADEX 04803 HOLLIE BUSH GRE SPINE 2 HEZIYADG LUMBOSACR [facility] AL 2/3 VIEWS ARTHROCEN 08667 HOLLIE NORMAN TESIS 2 HEILIG ASPIR&/IN [facility] J MAJOR JT/[place] [address] [facility] [place] MICHAEL ABDOMEN & 1 RADIOLOGY ZEKE PELVIS W/O CONTRAST MATERIAL RADEX HIP 73191 HOLLIE BUSH GRE 1 HEILIGrace UNILATERA [facility] L COMPLETE MINIMUM 2 VIEWS ARTHROCEN 80485 HOLLIE NORMAN TESIS 1 HEILIG ASPIR&/IN [facility] J MAJOR JT/BURSA W/O US INJECTION J3302 HOLLIE BUSH GRE 1 ALYSHA DUNCAN MD [facility] LONE DIACETATE PER 5 MG Encounters Encounter Start End Date Code Location Performer Type Date OFFICE 15047 [facility] 7 7 ORTHOPEDI T VISIT C 15 ASSOCIAT MINUTES OFFICE 39156 [facility] 7 7 ORTHOPEDI T VISIT C 15 ASSOCIAT MINUTES EMERGENCY 76023 [facility] DEPT 7 7 TIFF VISIT EMERGENCY HIGH SERVI SEVERITY& THREAT [facility] - 7 7 [facility] - 7 7 [facility] - 7 7 [facility] R[facility] - [address] [facility] 71340 [facility] 7 7 [facility] T VISIT 15 [place] MINUTES R OFFICE 05744 MOGILECHARK MOGILEVSK OUTPATIEN 7 7 I I T VISIT 25 MINUTES OFFICE 25281 SH[facility] MIN OUTPATIEN 6 6 ORTHOPEDI T VISIT C 25 ASSOCIAT MINUTES OFFICE 59287 NIKKIK MOGILEVSK OUTPATIEN 6 6 I JUSTIN I JUSTIN T VISIT 15 MINUTES HOSPITAL [facility] - 6 6 [facility]ENC[facility] 46076 [facility] 6 6 TIFF HAZ [facility] EMERGENCY T VISIT PHYS MODERATE SEVERITY EMERGENCY 97475 [facility] 6 6 [facility] [place] T VISIT [facility] - 6 6 [facility] T EMERGENCY 70410 [facility] 6 6 [facility] T VISIT HIGH/URGE NT SEVERITY OFFICE 18185 CARMELOILECHARK MOGILEVSK OUTPATIEN 6 6 I JUSTIN I JUSTIN T VISIT 25 MINUTES OFFICE 98685 MOGILECHARK MOGILEVSK OUTPATIEN 6 6 I JUSTIN I JUSTIN T VISIT 25 MINUTES OFFICE 39123 SHRAVAN PERALES OUTPATIEN 6 6 ORTHOPEDI T VISIT C 15 ASSOCIAT MINUTES OFFICE 87506 KATIE KEENAN II OUTPATIEN 6 6 [facility] SLEEP JOSHUA T NEW 30 AND REHA MINUTES EMERGENCY 01401 [facility] DEPT 6 6 TIFF HAZ VISIT EMERGENCY HIGH PHYS SEVERITY& THREAT [facility] R[facility] - 6 6 [facility] CENTE OFFICE 92801 SHRAVAN NORMAN OUTPATIEN 6 6 ORTHOPEDI T VISIT C 15 ASSOCIAT MINUTES HOSPITAL [facility] - 6 6 [facility] OFFICE 34904 KANCHAN PERSON OUTPATIEN 6 6 T VISIT 25 MINUTES OFFICE 39968 SHRAVAN MIN OUTPATIEN 6 6 ORTHOPEDI T VISIT C 25 ASSOCIAT MINUTES HOSPITAL [facility] - 6 6 REGIONAL OUTPATIEN MEDICAL T [facility] RUSS - 6 6 REGIONAL OUTPATIEN MEDICAL T CENTE EMERGENCY 11061 [facility] 6 6 REGIONAL DEPARTMEN MEDICAL T VISIT CENT MODERATE SEVERITY HOSPITAL [facility] - 6 6 REGIONAL OUTPATIEN MEDICAL T CENTE OFFICE 48716 [facility] 6 6 REGIONAL T VISIT PHYSICIAN 25 PRA MINUTES HOSPITAL [facility] - 6 6 REGIONAL OUTPATIEN MEDICAL T CENTE EMERGENCY 76613 [facility] [place] 5 5 TIFF WHI DEPARTMEN EMERGENCY T VISIT SERVI HIGH/URGE NT SEVERITY [facility] R[facility] - 5 5 [facility] 55356 [facility] OUTPATIEN 5 5 CLINIC IVAN T VISIT 15 MINUTES [facility]OSPITAL [facility] - 5 5 [facility] 04442 [facility] 5 5 CLINIC IVAN T NEW 45 MINUTES HOSPITAL [facility] - 5 5 [facility]AL OUTPATIEN [facility] 76379 KANCHANVIRAJ PERSON OUTPATI 5 5 T VISIT 25 MINUTES EMERGENCY 89855 [facility] DEPT 5 5 TIFF VISIT EMERGENCY HIGH PHYS SEVERITY& THREAT [facility] RUSS - 4 4 REGIONAL OUTPATIEN MEDICAL T [facility] R[facility] - 4 4 REGIONAL OUTPATIEN MEDICAL T CENTE OFFICE 09337 [facility] SANDERSON OUTPATIEN 4 4 REGIONAL T VISIT PHYSICIAN 15 PRA MINUTES OFFICE 68635 [facility] S[facility] OUTPATIEN 4 4 REGIONAL T VISIT PHYSICIAN 15 PRA MINUTES HOSPITAL [facility] - 4 4 [facility] [address] [facility] 4 4 TIFF JASKARAN DEPARTMEN EMERGENCY T VISIT SERVI HIGH/URGE NT SEVERITY [facility]OSPITAL [facility] - OTHER 4 4 [facility] EMERGENCY 06568 [facility] 4 4 TIFF DEPARTMEN EMERGENCY T VISIT PHYS HIGH/URGE NT SEVERITY OFFICE 18800 ALIX DORADO 4 4 OMAR OMAR T VISIT 15 MINUTES HOSPITAL [facility] - OTHER 4 4 [facility] OFF[facility] 70532 KANCHAN PERSON [facility] 3 3 T NEW 45 MINUTES OFFICE 43672 ALIX DORADO 3 3 OMAR OMAR T VISIT 15 MINUTES HOSPITAL UNIVERSIT - 3 3 Y [facility] HOSPITAL RUSS - 3 3 [facility] T CENTE OFFICE 94766 ALIX DORADO 3 3 OMAR OMAR T VISIT 15 MINUTES EMERGENCY 76597 RYAN BARNESS DEPT 3 3 EMERGENCY VISIT SERVICES HIGH SEVERITY& THREAT FUNCJ OFFICE 52899 [facility] 3 3 ORTHOPEDI T VISIT C 25 ASSOCIAT MINUTES HOSPITAL UNIVERSIT - 3 3 Y [facility] HOSPITAL UNIVERSIT - 3 3 Y [facility] T OFFICE 98599 [facility] 3 3 Y T VISIT HOSPITAL 25 MINUTES OFFICE 60912 ALIX DORADO 3 3 OMAR OMAR T VISIT 15 MINUTES OFFICE 24537 ALIX DORADO 3 3 OMAR OMAR T VISIT 15 MINUTES OFFICE 08505 ALIX THOMSON OUTPATIEN 3 3 OMAR OMAR T VISIT 15 MINUTES OFFICE 89209 MANOOCHEH MAZLOOMDO OUTPATIEN 3 3 R OST MAN T VISIT MAZLOOMD 25 MINUTES OFFICE 42747 ALIX THOMSON OUTPATIEN 3 3 OMAR OMAR T VISIT 15 MINUTES EMERGENCY 55509 RYAN PARSONS 3 3 EMERGENCY DEPARTMEN SERVICES T VISIT HIGH/URGE NT SEVERITY OFFICE 05210 MANOOМАРИЯH VALLOOMDO OUTPATIEN 3 3 R OST MAN T VISIT MAZLOOMD 15 MINUTES OFFICE 89079 PREMIER RADHA GÓMEZ OUTPATIEN 3 3 [facility] T VISIT PLLC 15 MINUTES EMERGENCY 98747 RYAN BARNESS 2 2 EMERGENCY DEPARTMEN SERVICES T VISIT HIGH/URGE NT SEVERITY OFFICE 65851 ALIX THOMSON OUTPATIEN 2 2 OMAR OMAR T VISIT 15 MINUTES OFFICE 28013 SORIN NEALLOOMDO OUTPATIEN 2 2 R OST MAN T VISIT MAZLOOMD 25 MINUTES OFFICE 82378 ALIX THOMSON OUTPATIEN 2 2 OMAR OMAR T VISIT 15 MINUTES OFFICE 00648 SORIN NEALLOOMDO OUTPATIEN 2 2 R OST MAN T VISIT MAZLOOMD 25 MINUTES OFFICE 02754 ALIX THOMSON OUTPATIEN 2 2 OMAR OMAR T VISIT 15 MINUTES HOSPITAL [facility] - 2 2 REGIONAL OUTPATIEN MEDICAL T [facility] R[facility] - 2 2 REGIONAL OUTPATIEN MEDICAL T [facility] EMERGENCY 05614 RYAN BLACKMON [facility] DEPT 2 2 EMERGENCY VISIT SERVICES HIGH SEVERITY& THREAT FUNCJ OFFICE 90719 ALIX THOMSON OUTKLAUDIA 2 2 OMAR OMAR T VISIT 15 MINUTES HOSPITAL [facility] - 2 2 [facility]IONAL [facility] - OTHER 2 2 [facility] OFFICE 98408 ALEXANDR STRANGE OUTPATIEN 2 2 IVAN IVAN T NEW 30 MINUTES [facility] R[facility] - 2 2 [facility] OFFICE 54038 HOLLIE NORMAN OUTPATIEN 2 2 HEILIG T VISIT [facility] 15 MINUTES OFFICE 66051 HOLLIE NORMAN OUTPATIEN 2 2 HEILIG T VISIT PLLC 25 MINUTES OFFICE 80247 HOLLIE NORMAN OUTPATIEN 2 2 HEILIG T VISIT PLLC 15 MINUTES OFFICE 97459 HOLLIE NORMAN OUTPATIEN 2 2 HEILIG T VISIT PLL 25 MINUTES OFFICE 46741 ALIX THOMSON OUTPATIEN 1 1 OMRA OMAR T VISIT 15 MINUTES OFFICE 21433 ALIX THOMSON OUTPATIEN 1 1 OMAR OMAR T VISIT 15 MINUTES OFFICE 19382 DORON LANDRY JR OUTPATIEN 1 1 [facility] 20 [facility] MINUTES P OFFICE 92513 ALIX THOMSON OUTPATIEN 1 1 OMAR OMAR T VISIT 15 MINUTES EMERGENCY 88928 RYAN SAL DEPT 1 1 EMERGENCY SCO VISIT SERVICES HIGH SEVERITY& THREAT FUNJ OFFICE 96451 HOLLEI NORMAN OUTPATIEN 1 1 HEILIG T NEW 45 PLLC MINUTES OFFICE 61967 ALIX LOMELIPATIVIRAJ 0 0 OMAR OMAR T VISIT 15 MINUTES OFFICE 26545 ALIX DORADO 0 0 OMAR OMAR T VISIT 15 MINUTES OFFICE 59832 ALIX THOMSON OUTPATIEN 0 0 [facility] [place] [facility] T VISIT 15 MINUTES EMERGENCY 88746 [facility] 0 0 REGIONAL [facility] MEDICAL T VISIT [facility] RUSS - 0 0 REGIONAL OUTPATI MEDICAL T [facility]
--- OUTSIDE RECORDS SUMMARY | 2016-12-18 18:50 | External Medical Summary Rpt | CCD ---
Demographics Preferred Language Armenian Marital Status Unknown Judaism Affiliation Unknown Race Unknown Ethnic Group Unknown Author Author , ROSA LEE Address Unknown Phone Immunization No patient found.
--- OUTSIDE RECORDS SUMMARY | 2016-12-18 18:50 | External Medical Summary Rpt ---
Author Author ROSA Michel, [employer] Organization [employer] Address Unknown Phone Unavailable
--- OUTSIDE RECORDS SUMMARY | 2016-12-18 18:50 | External Medical Summary Rpt | CCD ---
Demographics Preferred Language Burundian Marital Status Unknown Samaritan Affiliation Unknown Race Unknown Ethnic Group Unknown Author Author , ROSA LEE Address Unknown Phone Immunization No patient found.
--- NOTE | 2016-12-18 19:07 | RADIOLOGY REPORT PS360 ---
CT HEAD W/O CONTRAST INDICATION: Fall after seizure activity Routine axial images for brain followed by additional post-processing axial bone window images. Axial CT scanning from the base of the skull through the vertex to evaluate the brain was performed. Subsequent post processing 2-D CT bone windows were submitted to PACS and are useful to evaluate calvarium, visualize portions of paranasal sinuses, mastoids and base of skull. Multiaxial scans are obtained from the base of the skull to the vertex and performed without contrast. The base of the skull appeared normal. The ventricular system was normal. There was no ischemic infarct or bleed and there were no extra-axial fluid collections. The bony calvarium appeared intact. IMPRESSION: Negative noncontrast CT scan of the brain.
--- NOTE | 2016-12-18 19:29 | RADIOLOGY REPORT PS360 ---
CT CERVICAL SPINE W/O CONT COMPARISON: None HISTORY: Neck Pain after fall after seizure activity TECHNIQUE: Multiple axial scans of the cervical spine were obtained. Sagittal and coronal reformats were evaluated as well. FINDINGS: There is straightening of normal curvature suggesting muscle spasm. C1-C7 appear intact. There is minor disc space narrowing at the C5-6 and C6-7 levels with moderate anterior and minor posterior ossific spurring at these levels. The prevertebral soft tissues are normal and the odontoid is normal. There are multilevel arthritic changes of the apophyseal joints bilaterally. 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
[2016-12-18] MEDS ORDERED: TOPAMAX50 MG PO (19:30)
[2016-12-18 19:39] VITALS: BP 119/68
--- NOTE | 2016-12-18 20:05 | RADIOLOGY REPORT PS360 ---
CHEST-PORTABLE COMPARISON: None HISTORY: Chest pain after seizure activity TECHNIQUE: Portable upright chest FINDINGS: The lung boss are well expanded and appear clear of infiltrate. The cardiac silhouette and vascularity are normal and is no pleural fluid. There is a small hiatal hernia seen to the cardiac shadow. IMPRESSION: Nonacute chest findings
== END 2016-12-18 19:40 | disposition home or self-care (01) ==
LOC: ER 16:52
PROVIDERS: Emergency Medicine
DX: R56.9 Unspecified convulsions (principal); M47.22 Other spondylosis with radiculopathy, cervical region; M54.5 Low back pain; F41.8 Other specified anxiety disorders; Z88.0 Allergy status to penicillin; Z88.6 Allergy status to analgesic agent